=== PATIENT | male | born 2005 | race Caucasian/White ===

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

== ENCOUNTER 2025-04-02 22:00 | Observation (INO) | payer OTHER, MEDICAID, SELFPAY ==
--- NOTE | ~2025-04-02 | XR_ITS ---
CHEST RADIOGRAPH CLINICAL HISTORY: cough . COMPARISON: None available TECHNIQUE: Single portable view of the chest. FINDINGS The cardiomediastinal silhouette is unremarkable. The lungs are clear. Visualized osseous structures and soft tissues are unremarkable. IMPRESSION: No focal infiltrate or effusion. Reviewed, dictated and finalized at location A.
[2025-04-02 22:03] VITALS: BP 145/73; PULSE 123; RESP 18; TEMP 36.4; O2SAT 100
--- OUTSIDE RECORDS SUMMARY | 2025-04-02 22:03 | XMS_ITS | Encounter Summary ---
Author Organization [facility] [employer] Address [address] [place] [address] Care Team Providers Care Box Closing Machine Operator Name Role Phone Genia Epps MD Unavailable [phone] Karen Hook MD Primary Care Provider [phone] Genia Epps MD Primary Care Provider [phone] Unknown, Provider Primary Care Provider Unavaila Bartolo Ovalle DO Primary Care Provider Reason for Visit * Reason Onset Date Comments MEDICATION REFILL 03/27/2013 Encounter Details Date Type Department Care Team (Late st Contact Info) Description 03/27/2013 Refill [facility] - Endocrinology [address] [place] [id number] Gideon Bryant MD [address] [place] [id number] MEDICATION REFILL Social History Tobacco Use Types Packs/Day Years Used Date Smoking Tobacco: Never Alcohol Use Standard Drinks/Week Comments No 0 (1 standard drink = 0.6 oz pur e alcohol) Sex and Gender Information Value Date Recorded Sex Assigned at Not on file Legal Sex Male 8:23 AM KILN STOKER Gender Identity Not on file Sexual Orientation Not on file documented as of this encounter Plan of Treatment Not on file documented as of this encounter Visit Diagnoses Not on filedocumented in this encounter Additional Health Concerns Infection Onset Date Last Indicated Resolved Time COVID-19 Under Investigation 11/05/2020 11/05/2020 11/05/2020 3:52 PM KILN STOKER COVID-19 Under Investigation 11/14/2021 11/14/2021 11/25/2021 4:33 AM KILN STOKER documented as of this encounter Care Teams Box Closing Machine Operator Relationship Specialty Start Date End Date Genia Epps MD PCP - Pediatrics Pediatrics 11/22/11 10/02/23 Karen Hook MD PCP - General Pediatrics 09/21/12 01/26/14 Genia Epps MD PCP - General Pediatrics 04/12/20 10/02/23 Unknown, Provider PCP - General 11/07/23 12/05/23 Bartolo Aviles DO PCP - General 12/06/23 documented as of this encounter
--- OUTSIDE RECORDS SUMMARY | 2025-04-02 22:03 | XMS_ITS | Encounter Summary ---
Author Organization [facility] Address [address] [place] [address] Care Team Providers Care Health Unit Coordinator Name Role Phone Genia Epps MD Unavailable [phone] Karen Hook MD Primary Care Provider [phone] Genia Epps MD Primary Care Provider [phone] Unknown, Provider Primary Care Provider Bartolo Ortega DO Primary Care Provider Encounter Details Date Type Department Care Team (Late st Contact Info) Description 03/08/2013 [facility] Outpatient Visit CG DEFAULT [address] [place] [address] Unknown, Provider Social History Tobacco Use Types Packs/Day Years Used Date Smoking Tobacco: Never Alcohol Use Standard Drinks/Week Comments No 0 (1 standard drink = 0.6 oz pur e alcohol) Sex and Gender Information Value Date Recorded Sex Assigned at Not on file Legal Sex Male 8:23 AM TRADE SHOW COORDINATOR Gender Identity Not on file Sexual Orientation Not on file documented as of this encounter Plan of Treatment Not on file documented as of this encounter Visit Diagnoses Not on filedocumented in this encounter Additional Health Concerns Infection Onset Date Last Indicated Resolved Time COVID-19 Under Investigation 11/05/2020 11/05/2020 11/05/2020 3:52 PM TRADE SHOW COORDINATOR COVID-19 Under Investigation 11/14/2021 11/14/2021 11/25/2021 4:33 AM TRADE SHOW COORDINATOR documented as of this encounter Care Teams Health Unit Coordinator Relationship Specialty Start Date End Date Genia Epps MD PCP - Pediatrics Pediatrics 11/22/11 10/02/23 Karen Hook MD PCP - General Pediatrics 09/21/12 01/26/14 Genia Epps MD PCP - General Pediatrics 04/12/20 10/02/23 Unknown, Provider PCP - General 11/07/23 12/05/23 Bartolo Aviles DO PCP - General 12/06/23 documented as of this encounter
--- OUTSIDE RECORDS SUMMARY | 2025-04-02 22:03 | XMS_ITS | Encounter Summary ---
Author Organization [facility] [employer] Address [address] [place] [address] Care Team Providers Care Adon Name Role Phone Genia Epps MD Unavailable [phone] Genia Epps MD Primary Care Provider [phone] Unknown, Provider Primary Care Provider Unavaila Bartolo Ovalle DO Primary Care Provider Reason for Visit * Reason Onset Date Comments Refill Request 06/21/2018 Fosinopril Encounter Details Date Type Department Care Team (Late st Contact Info) Description 06/21/2018 Telephone [facility] Pediatrics - Endocrinology [facility] [place] [address] Jeannie Martinez Refill Request (Fosinopril) Social History Tobacco Use Types Packs/Day Years Used Date Smoking Tobacco: Passive Smo ke Exposure - Never Smoker Smokeless Tobacco: Never Alcohol Use Standard Drinks/Week Comments No 0 (1 standard drink = 0.6 oz pur e alcohol) Sex and Gender Information Value Date Recorded Sex Assigned at Not on file Legal Sex Male 8:23 AM TREAD CUTTER Gender Identity Not on file Sexual Orientation Not on file documented as of this encounter Plan of Treatment Not on file documented as of this encounter Goals Goal Patient Goal Type Associated Problems Recent Progress Patient-Stated? Author Use safety retraint in car Lifestyle On track( 022 11:33 AM TREAD CUTTER) No Elli Lainez RN documented as of this encounter Visit Diagnoses Not on filedocumented in this encounter Additional Health Concerns Infection Onset Date Last Indicated Resolved Time COVID-19 Under Investigation 11/05/2020 11/05/2020 11/05/2020 3:52 PM TREAD CUTTER COVID-19 Under Investigation 11/14/2021 11/14/2021 11/25/2021 4:33 AM TREAD CUTTER documented as of this encounter Care Teams Adon Relationship Specialty Start Date End Date Genia Epps MD PCP - Pediatrics Pediatrics 11/22/11 10/02/23 Genia Epps MD PCP - General Pediatrics 04/12/20 10/02/23 Unknown, Provider PCP - General 11/07/23 12/05/23 Bartolo Aviles DO PCP - General 12/06/23 documented as of this encounter
--- OUTSIDE RECORDS SUMMARY | 2025-04-02 22:03 | XMS_ITS | Encounter Summary ---
Author Organization [facility] Address [address] [place] [address] Care Team Providers Care Networking Engineer Name Role Phone Genia Epps MD Unavailable [phone] Genia Epps MD Primary Care Provider [phone] Unknown, Provider Primary Care Provider Unavaila Bartolo Ovalle DO Primary Care Provider Encounter Details Date Type Department Care Team (Late st Contact Info) Description 01/14/2018 Telephone [facility] Pediatrics - Endocrinology [address] [place] [address] Rafa Farias APRN-FEED RESEARCH TECHNICIAN [address] [place] [id number] Social History Tobacco Use Types Packs/Day Years Used Date Smoking Tobacco: Passive Smo ke Exposure - Never Smoker Smokeless Tobacco: Never Alcohol Use Standard Drinks/Week Comments No 0 (1 standard drink = 0.6 oz pur e alcohol) Sex and Gender Information Value Date Recorded Sex Assigned at Not on file Legal Sex Male 8:23 AM DIAMOND SETTER APPRENTICE Gender Identity Not on file Sexual Orientation Not on file documented as of this encounter Miscellaneous Notes * Telephone Encounter - Peewee Rossa RN - 01/14/2018 11:06 AM CDT Received Fax from [facility] for PA approval for Basaglar Kwikpen from 01/12/18- 10/14/18. Ticket # [phone]. * Telephone Encounter - Peewee Rosas RN - 01/14/2018 9:16 AM CDT PA request faxed to [facility] for Basaglar 100u/ml Kwikpen. documented in this encounter Plan of Treatment Not on file documented as of this encounter Goals Goal Patient Goal Type Associated Problems Recent Progress Patient-Stated? Author Use safety retraint in car Lifestyle On track( 022 11:33 AM DIAMOND SETTER APPRENTICE) No Elli Lainez RN documented as of this encounter Visit Diagnoses Not on filedocumented in this encounter Additional Health Concerns Infection Onset Date Last Indicated Resolved Time COVID-19 Under Investigation 11/05/2020 11/05/2020 11/05/2020 3:52 PM DIAMOND SETTER APPRENTICE COVID-19 Under Investigation 11/14/2021 11/14/2021 11/25/2021 4:33 AM DIAMOND SETTER APPRENTICE documented as of this encounter Care Teams Networking Engineer Relationship Specialty Start Date End Date Genia Epps MD PCP - Pediatrics Pediatrics 11/22/11 10/02/23 Genia Epps MD PCP - General Pediatrics 04/12/20 10/02/23 Unknown, Provider PCP - General 11/07/23 12/05/23 Bartolo Aviles DO PCP - General 12/06/23 documented as of this encounter
--- OUTSIDE RECORDS SUMMARY | 2025-04-02 22:03 | XMS_ITS | Clinical Summary ---
Author Organization [facility] Address [address] [place] [address] Care Team Providers Care Forensic Document Examiner Name Role Phone Bartolo Aviles DO Primary Care Provider Source Comments [facility],non-owned Affiliates and Associated Physician Practices is amultiple site organization consisting of ambulatory clinics and hospital sitesin [place], [place], [place]. This disclosure is being madepursuant to the Care Everywhere program and may not contain all information available regarding this patient. Last updated 18.[facility] Allergies No known active allergies Medications * Be aware that medications may not be up to date on this document. Alwaysverify current medications with the patient. Blood Glucose Monitoring Suppl (Digital Media BroadcastTOUCH VERIO) W/DEVICE KIT Use 1 Each as directed Use to test blood sugar as directed 2 kit 1 11/28/19 18 Active blood glucose (ONETOUCH ULTRA TEST STRIPS) test stripIndications: Type 1 diabetes mellitus without complication (HCC) Use for blood glucose monitoring 5-9 times/day. 200 strip 11 02/08/20 19 Active blood glucose (ONETOUCH VERIO) test stripIndications: Uncontrolled type 1 diabetes mellitus with hyperglycemia (HCC) Use to test blood sugar 5-9 times daily. 200 strip 12/28/19 22 Active Continuous Blood Gluc Water Gas Operator (DEXCOM G6 SDE) DEVIIndications:T ype 1 diabetes mellitus with hyperglycemia (HCC) Use 1 Each as directed 1 Each 12/30/19 22 Active Insulin Pen Needle (TRUEplus Pen [place]) 32G X 4 MM MISCIndications:T ype 1 diabetes mellitus without complication, with long-term current use of insulin ([facility]) Use 1 Each as directed Use to administer insulin 4-6 times per day 200 Each 05/09/20 23 Active Continuous Blood Gluc Sensor (Dexcom G6 Sensor) MISCIndications:T ype 1 diabetes mellitus without complication, with long-term current use of insulin ([facility]) Use 1 Each every 10 days 3 Each 06/26/20 23 Active Continuous Blood Gluc Transmit (Dexcom G6 Transmitter) MISCIndications:T ype 1 diabetes mellitus without complication, with long-term current use of insulin ([facility]) Use 1 Each Every 90 days 1 Each 3 06/26/20 23 Active fosinopril (Monopril) 10 MG tabletIndications :Hypercholesterem ia Take 1 (one) tablet by mouth once daily 30 tablet 08/13/20 23 Active Insulin Pen Needle (BD Pen Needle Gosia U/F) 32G X 4 MM MISCIndications:T ype 1 diabetes mellitus without complication (HCC) Use 1 Each as directed Use for injections 4-6 times daily. 200 Each 10/29/19 24 Active Continuous Glucose Sensor (Dexcom G7 Sensor) MISCIndications:T ype 1 diabetes mellitus without complication (HCC) Use 1 Each every 10 days 3 Each 03/11/20 24 Active acetone,urine, (Ketostix) stripIndications: Type 1 diabetes mellitus without complication, with long-term current use of insulin ([facility]) Test urine when blood sugar is 250 or higher or when Haider is sick. 100 strip 11 03/11/20 24 Active Glucagon (Baqsimi Two Pack) 3 MG/DOSE POWDIndications:T ype 1 diabetes mellitus with hyperglycemia (HCC) Curlew 1 Each into the nose as directed 1 Each 4 05/28/20 24 Active insulin glargine (Lantus SoloStar) penIndications:Un controlled type 1 diabetes mellitus with hyperglycemia (HCC) INJECT 30 UNITS UNDER THE SKIN DAILY, ALLOW 2 UNIT PRIME. 15 mL 03/11/20 Active insulin lispro (HumaLOG;ADMelog) 100 UNIT/ML penIndications:Un controlled type 1 diabetes mellitus with hyperglycemia (HCC) Inject 1 unit for every 4 grams carbohydrate at meals and snacks as directed. Max daily 90 units/day 30 mL 03/11/20 24 Active Active Problems Problem Noted Date Diagnosed Date Heart murmur 04/14/2021 Essential hypertension 04/08/2018 Overview (08/31/2020): Treated with lisinopril Diabetes mellitus type I 04/20/2012 Overview (03/23/2023): Dx (04/20/2012): Diabetes mellitus, type 1; hemoglobin A1c 10.1 %; serum anti-MARCOS U/mL 73.1 (< 5.0), anti-insulin [IA-2 ab] 6.1 U/mL (0.0-0.8), anti-islet cell IgG antibodies < 1:4 (< 1:4). date result TSH 09/15/21 0.799 TTG IgA 07/10/19 <2 LDL 09/15/21 74 Ur microalbumin/cr 12/22/22 <10 Eye exam 12/23/22 negative Foot exam 03/23/23 normal DKA: 04/02/21 Assessment & Plan (03/07/2021 10:05 AM CDT): 1) [email or web address] 2) in the meantime you need to take correction doses every 2 hours until blood sugar is in range 3) plan on pump start over the summer 4) return in 3-4 months Assessment & Plan (12/03/2020 2:10 PM REFRACTORY TILE HELPER): 1) take correction dose every 2 hours when glucose is not in range 2) re-evaluate carb counting 3) call in one week to review sensor 4) return in 3 months for Anita Assessment & Plan (08/31/2020 4:12 PM REFRACTORY TILE HELPER): 1) continue current insulin doses 2) I will order dexcom 3) call us once you have set it up 4) return in 3 months for Anita Assessment & Plan (04/28/2020 8:34 AM CDT): 1) check blood sugar at 3pm and take correction if needed (This was Haider's suggestion) 2) call as needed to review blood sugars 3) resume BORA-I, 5mg daily and check electrolytes in 2 weeks Assessment & Plan (02/13/2020 8:44 AM CDT): 1) increase basaglar to 31 units 2) check blood sugar every 3-4 hours throughout the day 3) call in blood sugars in one week 4) return in 3 months for anita Assessment & Plan (10/17/2019 8:05 AM REFRACTORY TILE HELPER): 1) change correction dose to 2 per 50 over 150 151-200 add 2 201-250 add 4 251-300 add 6 301-350 add 8 351-400 add 10 Over 401 add 12 admelog 2) check blood sugar 4 times daily 3) call in blood sugars in one week 4) return in [address] Dumont Assessment & Plan (07/11/2019 9:16 AM CDT): 1) increase basaglar to 30 units 2) always check blood sugar before bed to make sure it is over 100 3) call in blood sugars in one week 4) return in 3 months for anita Assessment & Plan (04/10/2019 8:37 AM CDT): 1) check blood sugar when you wake up, if over 150 take correction dose and recheck in 2 hours 2) take correction doses every 2 hours until blood sugar is under 150 3) memorize doses 4) never take admelog after eating. For meals, count carbs, check blood sugar, take dose, eat 5) never miss lantus 6) return in 3 months for anita Assessment & Plan (09/20/2018 8:57 AM REFRACTORY TILE HELPER): 1) must check blood sugar at least 4 times daily 2) take correction doses when blood sugar is high and recheck blood sugar in 2 hours 3) call as needed to review blood sugars 4) return in [address] Dumont Assessment & Plan (02/26/2018 2:10 PM CDT): 1) improve blood sugar testing 2) 4 times daily 3) start fosinopril 5mg daily 4) check electrolytes in 2 weeks at [facility] 5) spot check blood pressure 2-3 times weekly 6) call in blood sugars in one week 7) return in [address] Dumont Assessment & Plan (08/15/2017 8:43 AM CDT): 1) grandparents and school nurse to give all injections 2) direct supervision required for blood sugar checks 3) must make sure blood sugar is tested before leaving for school, lunch time, dinner time and bedtime 4) call in blood sugars on Sunday 5) Return in 3 months for Anita Assessment & Plan (02/06/2017 11:02 AM CDT): Lantus/basaglar 22 units at 8 p.m. Novolog/humalo unit per 4 g carb at meals/snacks [give insulin injections prior to meals/snacks] Mealtime correction: 1 unit Novolog/Humalog for every 30 mg/dL over 150 mg/dL. [facility] Del [facility]'s home target blood glucose range: 70-150 mg/dL Target blood glucose levels for children with type I diabetes mellitus Under age 4 yr: 100-200 mg/dL Age 4-7 yr: 80-180 mg/dL Over age 7 yr: 80-150 mg/dL Insulin injections given by: self Insulin injection sites: arm(s), lower leg(s) Avoid giving insulin injections in the abdominal wall - lipohypertrophied areas Consistent carbohydrate counting meal planning (gluten free no) Avoid/minimize between meal snacking without taking insulin. Per the [employer] practice guidelines [Diabetes Care 2015 38 (suppl 1): S1-S94], people with type 1 diabetes mellitus on multiple-dose insulin or insulin pump therapy should perform SMBG prior to meals and snacks, occasionally post-prandial, at bedtime, prior to exercise, when they suspect low blood glucose, after treating low blood glucose until they are normoglycemic, and prior to critical tasks such as driving. Record home blood glucose records in a logbook and bring this logbook to each office visit. Obtain and wear medic alert identification at all times. Schedule appointment for annual eye exam: no; Last eye exam: October 2016 Influenza immunization: not done (at this office visit) Follow-up by telephone (office number: [phone], option #4 or fax number: [phone]) in 2 weeks to review Haider's interval home blood glucose records and make any additional insulin dose adjustments. Return appointment in 3 months Assessment & Plan (12/04/2016 8:48 AM REFRACTORY TILE HELPER): Lantus 20 units at 9 p.m. Novolog/humalo unit per 4 g carb at meals/snacks [give insulin injections after meals/snacks] Mealtime correction: 1 unit Novolog/Humalog for every 30 mg/dL over 150 mg/dL. [facility] Del [facility] home target blood glucose range: 70-150 mg/dL Target blood glucose levels for children with type I diabetes mellitus Under age 4 yr: 100-200 mg/dL Age 4-7 yr: 80-180 mg/dL Over age 7 yr: 80-150 mg/dL Insulin injections given by: grandparent and school nurse Insulin injection sites: abdominal wall, arm(s) Avoid giving insulin injections in the n/a - lipohypertrophied areas Consistent carbohydrate counting meal planning (gluten free no) Avoid/minimize between meal snacking without taking insulin. Per the [employer] practice guidelines [Diabetes Care 2015 38 (suppl 1): S1-S94], people with type 1 diabetes mellitus on multiple-dose insulin or insulin pump therapy should perform SMBG prior to meals and snacks, occasionally post-prandial, at bedtime, prior to exercise, when they suspect low blood glucose, after treating low blood glucose until they are normoglycemic, and prior to critical tasks such as driving. Record home blood glucose records in a logbook and bring this logbook to each office visit. Obtain and wear medic alert identification at all times. Influenza immunization: already done (at this office visit) Follow-up by telephone (office number: [phone], option #4 or fax number: [phone]) in 2 weeks to review Haider's interval home blood glucose records and make any additional insulin dose adjustments. Return appointment in 2 months Assessment & Plan (08/18/2016 11:29 AM CDT): Lantus 18 units at 9 p.m. Novolog/humalo unit per 5 g carb at meals/snacks;[give insulin injections prior to meals/snacks] Mealtime correction: 1 unit Novolog/Humalog for every 50 mg/dL over 150 mg/dL. [facility] home target blood glucose range: 70-150 mg/dL Target blood glucose levels for children with type I diabetes mellitus Under age 4 yr: 100-200 mg/dL Age 4-7 yr: 80-180 mg/dL Over age 7 yr: 80-150 mg/dL Insulin injections given by: self (all injections supervised) Insulin injection sites: abdominal wall, arm(s) Avoid giving insulin injections in the n/a - lipohypertrophied areas Consistent carbohydrate counting meal planning (gluten free no) Avoid/minimize between meal snacking without taking insulin. Per the [employer] practice guidelines [Diabetes Care 2015 38 (suppl 1): S1-S94], people with type 1 diabetes mellitus on multiple-dose insulin or insulin pump therapy should perform SMBG prior to meals and snacks, occasionally post-prandial, at bedtime, prior to exercise, when they suspect low blood glucose, after treating low blood glucose until they are normoglycemic, and prior to critical tasks such as driving. Record home blood glucose records in a logbook and bring this logbook to each office visit. Obtain and wear medic alert identification at all times. Schedule appointment for annual eye exam: yes; Last eye exam: October 2015 Influenza immunization: done (at this office visit) Follow-up by telephone (office number: [phone], option #4 or fax number: [phone]) in 2 weeks to review Haider's interval home blood glucose records and make any additional insulin dose adjustments. Return appointment in 3 months Assessment & Plan (06/04/2016 12:59 PM CDT): Lantus 17 units at 9 p.m. Novolog/humalo unit per 6 g carb at meals/snack [give insulin injections prior to meals/snacks] Mealtime correction: 1 unit Novolog/Humalog for every 50 mg/dL over 150 mg/dL. [facility]esma [facility]rad[facility]'s home target blood glucose range: 70-150 mg/dL Target blood glucose levels for children with type I diabetes mellitus Under age 4 yr: 100-200 mg/dL Age 4-7 yr: 80-180 mg/dL Over age 7 yr: 80-150 mg/dL Insulin injections given by: self Insulin injection sites: abdominal wall, arm(s), thigh(s) Avoid giving insulin injections in the arm(s) - lipohypertrophied areas Consistent carbohydrate counting meal planning (gluten free no) Avoid/minimize between meal snacking without taking insulin. Per the [employer] practice guidelines [Diabetes Care 2015 38 (suppl 1): S1-S94], people with type 1 diabetes mellitus on multiple-dose insulin or insulin pump therapy should perform SMBG prior to meals and snacks, occasionally post-prandial, at bedtime, prior to exercise, when they suspect low blood glucose, after treating low blood glucose until they are normoglycemic, and prior to critical tasks such as driving. Record home blood glucose records in a logbook and bring this logbook to each office visit. Obtain and wear medic alert identification at all times. Schedule appointment for annual eye exam: yes; Last eye exam: March 2015 Influenza immunization: not done (at this office visit) Follow-up by telephone (office number: [phone], option #4 or fax number: [phone]) in 2 weeks to review Haider's interval home blood glucose records and make any additional insulin dose adjustments. Return appointment in 2 months Assessment & Plan (02/18/2016 4:10 PM CDT): Lantus 16 units at 9 p.m. Novolog/humalo unit per 6 g carb at breakfast; 1 u per 6 g carb at lunch;1 u per 5 g carb at supper and1 u per 6 g carb with snacks [give insulin injections prior to meals/snacks] Mealtime correction: 1 unit Novolog/Humalog for every 50 mg/dL over 150 Mg/dL (do not use with bedtime snack). Blood glucose target range: 70-150 mg/dL Insulin injections given by: self and grandparent Insulin injection sites: abdominal wall, arm(s), thigh(s) Avoid giving insulin injections in the arm(s) - lipohypertrophied areas Consistent carbohydrate counting meal planning (gluten free no) Avoid/minimize between meal snacking without taking insulin. Per the [employer] practice guidelines [Diabetes Care 2015 38 (suppl 1): S1-S94], people with type 1 diabetes mellitus on multiple-dose insulin or insulin pump therapy should perform SMBG prior to meals and snacks, occasionally post-prandial, at bedtime, prior to exercise, when they suspect low blood glucose, after treating low blood glucose until they are normoglycemic, and prior to critical tasks such as driving. Record home blood glucose records in a logbook and bring this logbook to each office visit. Obtain and wear medic alert identification at all times. Schedule appointment for annual eye exam: yes; Last eye exam: April 2015 Influenza immunization: not done (at this office visit) Follow-up by telephone (office number: [phone], option #4 or fax number: [phone]) in 2 weeks to review Haider's interval home blood glucose records and make any additional insulin dose adjustments. Return appointment in 3 months Assessment & Plan (11/23/2015 2:16 PM REFRACTORY TILE HELPER): Lantus 17 units at 9 p.m. Novolog/humalo unit per 6 g carb at meals/snacks [give insulin injections prior to meals/snacks] Mealtime correction: 1 unit Novolog/Humalog for every 50 mg/dL over 150 mg/dL. Blood glucose target range: 70-150 mg/dL Insulin injections given by: grandparent and school nurse Insulin injection sites: abdominal wall, arm(s) Avoid giving insulin injections in the arm(s) - lipohypertrophied areas Consistent carbohydrate counting meal planning (gluten free no) Avoid/minimize between meal snacking without taking insulin. Per the [employer] practice guidelines [Diabetes Care 2015 38 (suppl 1): S1-S94], people with type 1 diabetes mellitus on multiple-dose insulin or insulin pump therapy should perform SMBG prior to meals and snacks, occasionally post-prandial, at bedtime, prior to exercise, when they suspect low blood glucose, after treating low blood glucose until they are normoglycemic, and prior to critical tasks such as driving. Record home blood glucose records in a logbook and bring this logbook to each office visit. Obtain and wear medic alert identification at all times. Schedule appointment for annual eye exam: no; Last eye exam: May 2015 Influenza immunization: not done (at this office visit) Follow-up by telephone (office number: [phone], option #4 or fax number: [phone]) in 2 weeks to review Ha[facility]'s interval home blood glucose records and make any additional insulin dose adjustments. Return appointment in 3 months Assessment & Plan (08/27/2015 12:49 PM REFRACTORY TILE HELPER): 1) decrease dinner to 1:7 2) call in blood sugars in one week 3) return in [address] Bryant Assessment & Plan (05/21/2015 1:50 PM CDT): 1) Increase Humalog to 1 unit per 5 grams carb 2) increase lantus to 16 units 3) Adults are to administer all injections 4) Humalog is to be given before meals 5) call in blood sugars in one week to [phone] option 4 6) return in [address] Bryant Assessment & Plan (02/12/2015 8:31 AM CDT): 1) increase lantus to 14 units 2) increase correction dose to 1 per 50 over 150 151-200 1 unit 201-250 2 251-300 3 301-350 4 351-400 5 Over 401 6 3) Must begin meal injections before the meal 4) call in blood sugars in 1 week to [phone] option 4 5) return in 3 months for anita or Dr. Bryant 6) decrease lunch to 1:10 Assessment & Plan (11/10/2014 2:12 PM REFRACTORY TILE HELPER): Lantus 11 units at 10 p.m. Novolog/humalo unit per 8 g carb at meals/snacks; [try to give insulin injections prior to meals/snacks] Mealtime correction: 0.5 unit Novolog/Humalog for every 50 mg/dL over 150 mg/dL. Blood glucose target range: 70-150 mg/dL Insulin injections given by: self and grandparent Insulin injection sites: abdominal wall, arm(s) Avoid giving insulin injections in the abdominal wall - lipohypertrophied areas Consistent carbohydrate counting meal planning (gluten free no) Avoid/minimize between meal snacking without taking insulin. Self blood glucose monitoring before meals, HS, and prn (record in logbook). Obtain and wear medic alert identification at all times. Schedule appointment for annual eye exam: no; Last eye exam: April 2014 Influenza immunization: already done (at this office visit) Follow-up by telephone (office number: [phone], option #4 or fax number: [phone]) in 2 weeks to review [facility]'s interval home blood glucose records and make any additional insulin dose adjustments. Return appointment in 3 months Assessment & Plan (08/11/2014 9:50 AM CDT): Lantus 10 units at 9 p.m. Novolog/humalo unit per 8 g carb at meals/snacks; [give insulin injections after meals/snacks] Mealtime correction: 0.5 unit Novolog/Humalog for every 50 mg/dL over 150 mg/dL. Blood glucose target range: 70-150 mg/dL Insulin injections given by: self Insulin injection sites: abdominal wall Avoid giving insulin injections in the abdominal wall - lipohypertrophied areas Consistent carbohydrate counting meal planning (gluten free no) Avoid/minimize between meal snacking without taking insulin. Self blood glucose monitoring before meals, HS, and prn (record in logbook). Obtain and wear medic alert identification at all times. Schedule appointment for annual eye exam: no; Last eye exam: February 2014 Influenza immunization: done (at this office visit) Follow-up by telephone (office number: [phone], option #4 or fax number: [phone]) in 1 weeks to review Haider's interval home blood glucose records and make any additional insulin dose adjustments. Return appointment in 3 months Assessment & Plan (05/11/2014 4:27 PM CDT): Lantus 10 units at 9 p.m. Novolog/humalo unit per 8 g carb at meals/snacks [give insulin injections after meals/snacks] Mealtime correction: 0.5 unit Novolog/Humalog for every 50 mg/dL over 150 mg/dL. Blood glucose target range: 70-150 mg/dL Insulin injections given by: grandparent and school nurse Insulin injection sites: abdominal wall, arm(s) Avoid giving insulin injections in the arm(s) - lipohypertrophied areas Consistent carbohydrate counting meal planning (gluten free no) Self blood glucose monitoring before meals, HS, and prn (record in logbook). Obtain and wear medic alert identification at all times. Schedule appointment for annual eye exam: no; Last eye exam: February 2014 Influenza immunization: not done (at this office visit) Follow-up by telephone (office number: [phone], option #4 or fax number: [phone]) in 2 weeks to review [facility]'s interval home blood glucose records and make any additional insulin dose adjustments. Return appointment in 3 months Assessment & Plan (01/28/2014 11:19 AM CDT): 1. Lantus 9 units at bedtime 2. Rotate insulin injection sites to include legs and arms 3. Novolog/humalo unit per 8 g carb at meals/snacks; except 1 unit per 10 g carb at supper [give insulin injections after to meals/snacks] 4. Mealtime correction: 0.5 unit Novolog/Humalog for every 50 mg/dL over 200 mg/dL (max: 4 units) 5. Consistent carbohydrate counting meal planning 6. Self blood glucose monitoring before meals, HS, and prn (record in logbook). 7. Wear medic alert identification at all times. 8. Follow-up by telephone (office number: [phone], option #4 or fax number: [phone]) in 1-2 weeks to review [facility]ider's interval home blood glucose records and make any additional insulin dose adjustments. 9. Return appointment in 3 months Assessment & Plan (10/28/2013 12:06 PM REFRACTORY TILE HELPER): Lantus 8.5 units at bedtime Rotate insulin injection sites to include legs and arms Novolog/humalo unit per 8 g carb at meals/snacks [give insulin injections after to meals/snacks] Mealtime correction: 0.5 unit Novolog/Humalog for every 50 mg/dL over 200 mg/dL (max: 4 units) For blood glucose level 200-250 mg/dL, give 0.5 extra unit of Humalog insulin For blood glucose level 251-300 mg/dL, give 1.0 extra units of Humalog insulin For blood glucose level 301-350 mg/dL, give 1.5 extra units of Humalog insulin For blood glucose level 351-400 mg/dL, give 2 extra units of Humalog insulin For blood glucose level over 400 mg/dL, give 2.5 units extra of Humalog insulin Consistent carbohydrate counting meal planning Self blood glucose monitoring before meals, HS, and prn (record in logbook). Wear medic alert identification at all times. Follow-up by telephone (office number: [phone], option #4 or fax number: [phone]) in 1-2 weeks to review [facility]ider's interval home blood glucose records and make any additional insulin dose adjustments. Return appointment in 3 months Assessment & Plan (07/14/2013 11:21 PM CDT): Lantus 8 units at bedtime Rotate insulin injection sites to include legs and arms Novolog/humalo unit per 5 g carb at meals/snacks [give insulin injections after to meals/snacks]; except lunchtime, give 1 unit per 10 g carb Mealtime correction: 0.5 unit Novolog/Humalog for every 50 mg/dL over 200 mg/dL (max: 4 units) For blood glucose level 200-250 mg/dL, give 0.5 extra unit of Humalog insulin For blood glucose level 251-300 mg/dL, give 1.0 extra units of Humalog insulin For blood glucose level 301-350 mg/dL, give 1.5 extra units of Humalog insulin For blood glucose level 351-400 mg/dL, give 2 extra units of Humalog insulin For blood glucose level over 400 mg/dL, give 2.5 units extra of Humalog insulin Consistent carbohydrate counting meal planning Self blood glucose monitoring before meals, HS, and prn (record in logbook). Wear medic alert identification at all times. Follow-up by telephone (office number: [phone], option #4 or fax number: [phone]) in 1-2 weeks to review Haider's interval home blood glucose records and make any additional insulin dose adjustments. Return appointment in 3 months ADHD (attention deficit hyperactivity disorder) 02/27/2012 Resolved Problems Problem Noted Date Diagnosed Date Resolved Date Diabetic ketoacidosis withou t coma associated with type 1 diabetes mellitus 04/02/2021 03/23/2023 Assessment & Plan (04/02/2021 4:57 AM CDT): Assessment: Haider is a 15 year old male with a known history of T1DM who presents with vomiting, abdominal pain, headache, and diarrhea x1 day. Labs and history consistent with DKA. pH of 7.16 with a bicarb of 11. Haider requires admission for observation and treatment of his DKA. Plan: - Admit to Endocrine, Dr. Gonzalez FEN/GI/ENDO: - NPO - IV per protocol - D10 1/2 NS + 20 Kacetate and 20 KPhos at 200 ml/hr - 1/2 NS + 20 Kacetate and 20 KPhos at 1 ml/hr - Insulin gtt at 0.1 U/kg/hr - Glucose check q1h - BMP q4 - Urine ketones qvoid - I/Os - Diabetes education while admitted - Nutrition consult - HbA1c 11.4 on 03/03/21 - While at home regiment: - Basaglar 32 units qhs. - Humalog 1:4 carb ratio - Patient reported: Humalog sliding scale of 2u for every 50 over 150 - Per last note: Humalog sliding scale of 2u for every 80 over 180 ID: - Afebrile and no URI symptoms or sick contacts - CBC remarkable for WBC 34.4 Cardio/Resp: - Takes Fosinopril 10 mg qd at home - will take Lisinopril 10 mg qd while in the hospital - Vitals q2 - CR monitors - Continuous pulse ox Neuro/Pain: - Neuro checks q2 - PRN Tylenol Access: PIV Assessment & Plan (04/02/2021 3:50 AM CDT): Assessment: Haider is a 15 year old male with a known history of T1DM who presents with . Labs and history consistent with DKA. Plan: - Admit to Endocrine, Dr. Gonzalez FEN/GI/ENDO: - NPO - IV per protocol - D10 1/2 NS + 20 Kacetate and 20 KPhos at 200 ml/hr - 1/2 NS + 20 Kacetate and 20 KPhos at 1 ml/hr - Insulin gtt at 0.1 U/kg/hr - Glucose check q1h - BMP q4 - Urine ketones qvoid - I/Os - Diabetes education while admitted - Nutrition consult - HbA1c 11.4 on 03/03/21 ID: - Afebrile - CBC remarkable for WBC 34.4 Cardio/Resp: - Vitals q2 - CR monitors - Continuous pulse ox Neuro/Pain: - Neuro checks q2 Access: PIV Elevated blood pressure read ing without diagnosis of hypertension 11/29/2015 03/23/2016 Overview (01/13/2017): IMO Update 01/13/2017 DKA (diabetic ketoacidoses) 04/21/2012 04/22/2012 Overview (07/15/2021): 6 yr old with new onset diabetes (likely type 1) presenting w/ 3 week h/o polydipsia, polyuria and polyphagia. Admission labs significant for pH of 7.19, Hco3- 12, AG 20, K+ 5.0, urine ketones of 3+, HbA1c 10.1. Tolerated DKA protocol well, able to come off fluids/insulin and take PO by next AM, switched to floor status for duration of stay. A/P: - F/u results of Marcos, IA-2, and islet antibodies - Continue diabetes education with family today and tomorrow - Continue lantus 8 units and humalog 1 unit for 15 grams carbs plus correction dose of 1 unit for every 50 >150 IMO 2020 Poor weight gain in child 04/21/2012 Overview (04/23/2012): Probably secondary to medication effect (Adderall XR). Assessment & Plan (01/27/2014 10:13 AM CDT): Improving. 1. Expectant observation Immunizations Immunization Administration Dates Next Due DTaP VACCINE IM (6wk-6yrs) 07/07/2009,,2004,11/15,2004 HEP A PEDS 2 DOSE 04/11/2012,07/07/2009 HEP B VACCINE, PED/ADOL 09/17/2006,2004, HIB BOOSTER 09/17/2006, 5,2004,07/07 Human Papilloma Virus Matheus valent Vaccine 09/24/2015,05/24/2015,03/22/2015 INFLUENZA VACCINE 07/14/2013, 2,08/27/2009,07/07,09/17/2006 INFLUENZA VACCINE, QUADR. (F LUZONE; FLULAVAL; FLUARIX; AFLURIA QUADRIVALENT; 6MO+), 0.5 ML (IIV4) 07/28/2021,08/31/2020,07/10/2019,08/26,08/13/2017,08/17/2016,08/26/2015 MENINGOCOCCAL ACWY (MCV4P) VAC IM 05/12/2020,07/2015 MMR 08/27/2009,07/07/2009 PNEUMOCOCCAL CONJ, PEDS 09/17/2006,12/30,2004,07/07 POLIO IPV 07/07/2009, 6,2004,07/07 TDAP (7yrs+) 03/22/2015 VARICELLA 04/11/2012,07/07/2009 Family History Medical History Relation Name Comments Migraine Mother Diabetes Other 1st cousin Diabetes Paternal Grandfather Hypertension Paternal Grandmother Thyroid Disease Paternal Grandmother Relation Name Status Comments Brother Alive Father Maternal Grandfather Alive Maternal Grandmother Alive Mother Alive Other Paternal Grandfather Alive Paternal Grandmother Alive Sister Alive Social History Tobacco Use Types Packs/Day Years Used Date Smoking Tobacco: Every Day Cigarettes Passive Smoke Exposure: Yes Smokeless Tobacco: Current Tobacco Cessation:Ready to Q uit: Not Asked; Counseling Given: Not Answered Comments:Vaping Alcohol Use Standard Drinks/Week Comments No 0 (1 standard drink = 0.6 oz pur e alcohol) PHQ-2 Answer Date Recorded Patient Health Questionnaire-2 Score 0 10/10/2022 Sex and Gender Information Value Date Recorded Sex Assigned at Not on file Legal Sex Male 8:23 AM REFRACTORY TILE HELPER Gender Identity Not on file Sexual Orientation Not on file Last Filed Vital Signs Vital Sign Reading Time Taken Comments Blood Pressure 130/78 03/11/2024 9:54 AM CDT Pulse 74 04/14/2021 10:31 AM CDT Temperature 37.1 C (98.8 F) 10/01/2023 3:53 PM REFRACTORY TILE HELPER Respiratory Rate 22 04/02/2021 8:13 PM CDT Oxygen Saturation 98% 04/02/2021 8:13 PM CDT Inhaled Oxygen Concentration - - Weight 66 kg (145 lb 8.1 oz) 03/11/2024 9:54 AM CDT Height 177.5 cm (5' 9.88) 03/11/2024 9:54 AM CD T Body Mass Index 20.95 03/11/2024 9:54 AM CDT Plan of Treatment Health Maintenance Due Date Last Done Comments PNEUMOCOCCAL VACCINE (1 of 1 - PPSV23, PCV20, or PCV21) 2010 09/17/2006, 2004, 2004, Additional history exists HIV SCREENING 2019 MENINGOCOCCAL (Group B) VACC INE SHARED DECISION-MAKING (1 of 2 - Standard) 2020 HEPATITIS C SCREENING 05/01/2022 DIABETES-FOOT EXAM WITH MONOFILAMENT 03/23/2024 03/23/2023 DIABETES-HGB A1C 06/11/2024 03/11/2024, , 06/26/2023, Additional history exists COVID-19 VACCINE (2023-2 5 season) 2024 10/19/2021, 01/12/2021, 12/22/2020 DEPRESSION SCREENING 10/15/2024 11/13/2023, 03/23/2023, 12/15/2021 DIABETES - URINE PROTEIN SCREENING 10/15/2024 12/22/2022, 09/15/2021, 08/31/2020, Additional history exists DIABETES-SERUM CREATININE 11/13/20242023, 04/02/2021, 04/02/2021, Additional history exists DIABETES RETINOPATHY SCREENING 12/23/2024 0 12/23/2022 (Done Outside Per Report) DTAP/TDAP/TD VACCINES (7 - T d or Tdap) 03/22/2025 03/22/2015, 07/07/2009, 09/17/2006, Additional history exists INFLUENZA VACCINE (Season Ended) 2025 07/29/2022, 07/28/2021, 08/31/2020, Additional history exists ZOSTER VACCINE (1 of 2) 2054 HEPATITIS B VACCINE Completed 09/17/2006, 2004, 2004 HIB VACCINE Completed 09/17/2006, 12/13, 2004, Additional history exists HPV VACCINE Completed 09/24/2015, 05/15, 03/22/2015 MENINGOCOCCAL GROUPS A/C/Y/W VACCINE Completed 05/12/2020, 05/24/2015 Goals Goal Patient Goal Type Associated Problems Recent Progress Patient-Stated? 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 Essential hypertension MICROALB/CREAT RATIO URINE RANDOM PANEL Routine 12/22/2022 11:36 AM REFRACTORY TILE HELPER Type 1 diabetes mellitus with hyperglycemia from Last 3 Months or Most Recently Relevant to Health Maintenance Results * (ABNORMAL) HEMOGLOBIN A1C - POCT INTERFACED (03/11/2024 9:56 AM CDT) Hemoglobin A1C POCT 9.7(H) <5.7 % 03/11/2024 10:04 AM T [facility] Estimated Average Glucose 232 mg/dL 03/11/2024 10:04 AM T [facility] Blood BLOOD SPECIMEN / Unknown 03/11/2024 9:56 AM CDT 03/11/2024 10:04 AM CDT Narrative [facility] - 03/11/2024 10:04 AM CDT HbA1c Interpretation: Normal: < 5.7% Pre-diabetes: 5.7-6.4% Diabetes: Equal to or greater than 6.5% This test should only be used to monitor, not diagnose diabetes. Test results diagnostic of diabetes should be repeated by another method with a different assay principle for confirmation. Treatment target values recommended by ADA and other clinical organizations should be used to evaluate metabolic control in patients. Patients with a hemoglobin of <7 or >24 should not be tested using this method. Patients known to have these conditions should be assayed by a test employing a different assay principle. Glycated hemoglobin F is not measured by the DCA HbA1c assay. At very high levels of hemoglobin F (> 10%), HbA1c is lower than expected. Patients with HbS or HbE should not be tested using this device. HbS or HbE cause a higher result than expected. Conditions such as hemolytic anemia, polycythemia, homozygous and HbC, can result in decreased life span of the red blood cells, which causes HbA1c results to be lower than expected. The Siemens DCA assay for the measurement of HbA1c is a National Glycohemoglobin Standardization Program (NGSP) certified method. Ambar Wong BOATING SAFETY OFFICER-AUTOMOBILE SALESMAN LAB - POINT OF CARE ORD ERABLES Final Result [facility] [address] [place] [phone] * (ABNORMAL) BASIC METABOLIC PANEL (CALCIUM TOTAL) (11/13/2023 11:39 AM REFRACTORY TILE HELPER) BUN 14 7 - 26 mg/dL 11/13/2023 1:00 PM [facility] Creatinine 0.72 0.71 - 1.16 mg/dL 11/13/2023 1:00 PM [facility] Sodium 141 136 - 145 mmol/L 11/13/2023 1:00 PM [facility] Potassium 4.0 3.5 - 4.5 mmol/L 11/13/2023 1:00 PM [facility] Chloride 104 98 - 107 mmol/L 11/13/2023 1:00 PM [facility] CO2 28 22 - 29 mmol/L 11/13/2023 1:00 PM [facility] Glucose 43(LL) 70 - 115 mg/dL 11/13/2023 1:00 PM [facility] Calcium 9.7 8.4 - 10.2 mg/dL 11/13/2023 1:00 PM [facility] Anion Gap 9 6 - 16 11/13/2023 1:00 PM [facility] BUN/Creatinine Ratio 19 7 - 23 11/13/2023 1:00 PM [facility] Osmolality Calculated 289 275 - 295 mOsm/kg 11/13/2023 1:00 PM [facility] eGFR by CKD-EPI >90 >=90 mL/min/1.7 3 m2 11/13/2023 1:00 PM [facility] Blood BLOOD SPECIMEN / Unknown Lab Venipuncture / Unknown 11/13/2023 11:39 AM [facility] 11/13/2023 11:49 AM [facility] us Liat Dumont DO LAB - CHEMISTRY ORDERABLES Final Result [address] [address], [facility] [phone] * MICROALB/CREAT RATIO URINE RANDOM PANEL (12/22/2022 11:36 AM [facility]) Albumin Random Urine <5.0 Not Established ug/mL 12/22/2022 12:31 PM [facility] Creatinine Urine 28 Not Established mg/dL 12/22/2022 12:31 PM [facility] Urine Albumin/Creati nine Ratio <18 <30 mg/g 12/22/2022 12:31 PM [facility] Albumin/Creati nine Ratio Urine See Comment <30 mg/g 12/22/2022 12:31 PM [facility] Comment:Unable to calculate the Urine Albumin/Creatinine Ratio due to one or more analyte concentration(s) being outside the measuring limits of the instrument. Urine URINE SPECIMEN OBTAINED BY CLEAN CATCH PROCEDURE / Unknown Collection / Unknown 12/22/2022 11:36 AM REFRACTORY TILE HELPER 12/22/2022 11:43 AM REFRACTORY TILE HELPER Ambar Wong BOATING SAFETY OFFICER-AUTOMOBILE SALESMAN LAB - URINE CHEMISTRY O RDERABLES Final Result [facility] [address] [place] [address], [facility] [phone] from Last 3 Months or Most Recently Relevant to Health Maintenance Insurance [facility] Advance Directives * Full Code (Latest Code Status on File) Date Activated Date Inactivated Comments 04/02/2021 4:22 AM 04/02/2021 11:05 PM Care Teams Forensic Document Examiner Relationship Specialty Start Date End Date Bartolo Aviles DO PCP - General 12/06/23
--- OUTSIDE RECORDS SUMMARY | 2025-04-02 22:03 | XMS_ITS | Encounter Summary ---
Author Organization [facility] Address [address] [place] [address] Care Team Providers Care Maintenance Painter Apprentice Name Role Phone Genia Epps MD Unavailable [phone] Genia Epps MD Primary Care Provider [phone] Unknown, Provider Primary Care Provider Unavaila Bartolo Ovalle DO Primary Care Provider Reason for Visit * Reason Onset Date Comments MEDICATION REFILL 10/10/2022 Encounter Details Date Type Department Care Team (Late st Contact Info) Description 10/10/2022 Refill [facility] Pediatrics - Diabetes [facility] [address] [place] [address] Ambar Wong, GRAY TENDER-SPAGHETTI PRESS HELPER [facility] [place] [address] MEDICATION REFILL Social History Tobacco Use Types [...] on file Legal Sex Male 8:23 AM CHIEF INTERNAL AUDITOR Gender Identity Not on file Sexual Orientation Not on file COVID-19 Exposure Response Date Recorded In the last 10 days, have yo u been in contact with someone who was confirmed or suspected to have Coronavirus/COVID-19? No / Unsure 10/10/2022 9:44 AM CHIEF INTERNAL AUDITOR documented as of this encounter Functional Status * Is person deaf or have serious hearing difficulty? Answer Date of Assessment Author No 04/02/2021 4:33 AM Michael Huang RN * Is person blind or have serious difficulty seeing? Answer Date of Assessment Author No 04/02/2021 4:33 AM Michael Huang RN * Does person have serious difficulty walking/climbing stairs? Answer Date of Assessment Author No 04/02/2021 4:33 AM Michael Huang RN * Does person have difficulty dressing/bathing? Answer Date of Assessment Author No 04/02/2021 4:33 AM Michael Huang RN * Does person have difficulty doing errands alone? Answer Date of Assessment Author No 04/02/2021 4:33 AM Michael Huang RN * Over the past 2 weeks, how often have you been bothered by any of the following problems? Question Answer Date of Assessment Author Little interest or pleasure in doing things Not at all 10/10/2022 9:58 AM Hillary Oneill RN Feeling down, depressed, or hopeless Not at all 10/10/2022 9:58 AM Hillary Oneill RN Patient Health Questionnaire -2 Score 0 10/10/2022 9:58 AM Hillary Oneill RN documented as of this encounter Mental Status * Does person have difficulty concentrating/remembering/making decisions? Answer Entry Date Author No 04/02/2021 4:33 AM Michael Huang RN documented in this encounter Plan of Treatment Not on file documented as of this encounter Goals Goal Patient Goal Type Associated Problems Recent Progress Patient-Stated? Author Use safety retraint in car Lifestyle On track( 022 11:33 AM CHIEF INTERNAL AUDITOR) Elli Emerson RN documented as of this encounter Visit Diagnoses Diagnosis Uncontrolled type 1 diabetes mellitus with hyperglycemia (HCC) documented in this encounter Care Teams Maintenance Painter Apprentice Relationship Specialty Start Date End Date Genia Epps MD PCP - Pediatrics Pediatrics 11/22/11 10/02/23 Genia Epps MD PCP - General Pediatrics 04/12/20 10/02/23 Unknown, Provider PCP - General 11/07/23 12/05/23 Bartolo Aviles DO PCP - General 12/06/23 documented as of this encounter
--- OUTSIDE RECORDS SUMMARY | 2025-04-02 22:03 | XMS_ITS | Encounter Summary ---
Author Organization [facility] Address [address] [facility] [place] [address] Care Team Providers Care Lab Courier Name Role Phone Genia Epps MD Unavailable [phone] Genia Epps MD Primary Care Provider [phone] Unknown, Provider Primary Care Provider Unavaila Bartolo Ovalle DO Primary Care Provider Reason for Visit * Reason Onset Date Comments MEDICATION REFILL 08/03/2015 Encounter Details Date Type Department Care Team (Late st Contact Info) Description 08/03/2015 Refill [facility] Pediatrics - Endocrinology [address] [place] [address] Rafa Farias APRN-DIRECTOR [employer] [address] [place] [address] MEDICATION REFILL Social History Tobacco Use Types Packs/Day Years Used Date Smoking Tobacco: Never Alcohol Use Standard Drinks/Week Comments No 0 (1 standard drink = 0.6 oz pur e alcohol) Sex and Gender Information Value Date Recorded Sex Assigned at Not on file Legal Sex Male 8:23 AM ROOM CLERK Gender Identity Not on file Sexual Orientation Not on file documented as of this encounter Plan of Treatment Not on file documented as of this encounter Goals Goal Patient Goal Type Associated Problems Recent Progress Patient-Stated? Author Use safety retraint in car Lifestyle On track( 022 11:33 AM ROOM CLERK) No Elli Lainez RN documented as of this encounter Visit Diagnoses Not on filedocumented in this encounter Additional Health Concerns Infection Onset Date Last Indicated Resolved Time COVID-19 Under Investigation 11/05/2020 11/05/2020 11/05/2020 3:52 PM ROOM CLERK COVID-19 Under Investigation 11/14/2021 11/14/2021 11/25/2021 4:33 AM ROOM CLERK documented as of this encounter Care Teams Lab Courier Relationship Specialty Start Date End Date Genia Epps MD PCP - Pediatrics Pediatrics 11/22/11 10/02/23 Genia Epps MD PCP - General Pediatrics 04/12/20 10/02/23 Unknown, Provider PCP - General 11/07/23 12/05/23 Bartolo Aviles DO PCP - General 12/06/23 documented as of this encounter
--- OUTSIDE RECORDS SUMMARY | 2025-04-02 22:03 | XMS_ITS | Encounter Summary ---
Author Organization [facility] Address [address] [facility] [place] [address] Care Team Providers Care Vender Name Role Phone Genia Epps MD Unavailable [phone] Genia Epps MD Primary Care Provider [phone] Unknown, Provider Primary Care Provider Unavaila Bartolo Ovalle DO Primary Care Provider Reason for Visit * Reason Onset Date Comments MEDICATION REFILL 09/21/2017 Encounter Details Date Type Department Care Team (Late st Contact Info) Description 09/21/2017 Refill [facility] Pediatrics - Endocrinology [address] [place] [address] Rafa Farias APRN-CNC MILLING MACHINE OPERATOR [address] [place] [address] MEDICATION REFILL Social History Tobacco Use Types Packs/Day Years Used Date Smoking Tobacco: Passive Smo ke Exposure - Never Smoker Smokeless Tobacco: Never Alcohol Use Standard Drinks/Week Comments No 0 (1 standard drink = 0.6 oz pur e alcohol) Sex and Gender Information Value Date Recorded Sex Assigned at Not on file Legal Sex Male 8:23 AM DENTURE TECHNICIAN Gender Identity Not on file Sexual Orientation Not on file documented as of this encounter Plan of Treatment Not on file documented as of this encounter Goals Goal Patient Goal Type Associated Problems Recent Progress Patient-Stated? Author Use safety retraint in car Lifestyle On track( 022 11:33 AM DENTURE TECHNICIAN) No Elli Lainez RN documented as of this encounter Visit Diagnoses Diagnosis Type 1 diabetes mellitus without complication, with long-term current use of insulin (HCC) documented in this encounter Additional Health Concerns Infection Onset Date Last Indicated Resolved Time COVID-19 Under Investigation 11/05/2020 11/05/2020 11/05/2020 3:52 PM DENTURE TECHNICIAN COVID-19 Under Investigation 11/14/2021 11/14/2021 11/25/2021 4:33 AM DENTURE TECHNICIAN documented as of this encounter Care Teams Vender Relationship Specialty Start Date End Date Genia Epps MD PCP - Pediatrics Pediatrics 11/22/11 10/02/23 Genia Epps MD PCP - General Pediatrics 04/12/20 10/02/23 Unknown, Provider PCP - General 11/07/23 12/05/23 Bartolo Aviles DO PCP - General 12/06/23 documented as of this encounter
--- OUTSIDE RECORDS SUMMARY | 2025-04-02 22:03 | XMS_ITS | Encounter Summary ---
Author Organization [facility] Address [address] [facility] [address] Care Team Providers Care Otr Truck Driver Name Role Phone Genia Epps MD Unavailable [phone] Genia Epps MD Primary Care Provider [phone] Unknown, Provider Primary Care Provider Unavaila Bartolo Ovalle DO Primary Care Provider Encounter Details Date Type Department Care Team (Late st Contact Info) Description 05/09/2022 Telephone [facility] Pediatrics - Diabetes [address] [address] Liat Dumont DO [address] [place] [id number] Social History Tobacco Use Types Packs/Day Years Used Date Smoking Tobacco: Passive Smo ke Exposure - Never Smoker Smokeless Tobacco: Never Alcohol Use Standard Drinks/Week Comments No 0 (1 standard drink = 0.6 oz pur e alcohol) PHQ-2 Answer Date Recorded PHQ2 TOTAL SCORE 0 02/11/2021 Sex and Gender Information Value Date Recorded Sex Assigned at Not on file Legal Sex Male 8:23 AM OFFICE SUPPORT ASSOCIATE Gender Identity Not on file Sexual Orientation Not on file documented as of this encounter Functional Status * Is person deaf or have serious hearing difficulty? Answer Date of Assessment Author No 04/02/2021 4:33 AM CDT Michael Concepcion RN * Is person blind or have serious difficulty seeing? Answer Date of Assessment Author No 04/02/2021 4:33 AM CDT Michael Concepcion RN * Does person have serious difficulty walking/climbing stairs? Answer Date of Assessment Author No 04/02/2021 4:33 AM CDT Michael Concepcion RN * Does person have difficulty dressing/bathing? Answer Date of Assessment Author No 04/02/2021 4:33 AM CDT Michael Concepcion RN * Does person have difficulty doing errands alone? Answer Date of Assessment Author No 04/02/2021 4:33 AM CDT Michael Concepcion RN documented as of this encounter Mental Status * Does person have difficulty concentrating/remembering/making decisions? Answer Entry Date Author No 04/02/2021 4:33 AM LUIST Michael Concepcion RN documented in this encounter Miscellaneous Notes * Telephone Encounter - Karime Browne RN - 05/09/2022 12:40 PM CDT PA sent to [facility] via [facility] for Dexcom transmitter. * Telephone Encounter - Karime Browne RN - 05/09/2022 7:47 AM CDT Received approval for Dexcom sensors through 05/08/23 from [facility]. documented in this encounter Plan of Treatment Not on file documented as of this encounter Goals Goal Patient Goal Type Associated Problems Recent Progress Patient-Stated? Author Use safety retraint in car Lifestyle On track( 022 11:33 AM OFFICE SUPPORT ASSOCIATE) No Elli Lainez, RN documented as of this encounter Visit Diagnoses Not on filedocumented in this encounter Care Teams Otr Truck Driver Relationship Specialty Start Date End Date Genia Epps MD PCP - Pediatrics Pediatrics 11/22/11 10/02/23 Genia Epps MD PCP - General Pediatrics 04/12/20 10/02/23 Unknown, Provider PCP - General 11/07/23 12/05/23 Bartolo Aviles DO PCP - General 12/06/23 documented as of this encounter
--- OUTSIDE RECORDS SUMMARY | 2025-04-02 22:03 | XMS_ITS | Encounter Summary ---
Author Organization [facility] [employer] Address [address] [facility] [place] [address] Care Team Providers Care Predictive Maintenance Technician Name Role Phone Genia Epps MD Unavailable [phone] Genia Epps MD Primary Care Provider [phone] Unknown, Provider Primary Care Provider Unavaila Bartolo Ovalle DO Primary Care Provider Reason for Visit * Reason Onset Date Comments MEDICATION REFILL 12/29/2021 Encounter Details Date Type Department Care Team (Late st Contact Info) Description 12/29/2021 Refill [facility] Pediatrics - Diabetes [facility] [address] [place] [address] Ambar Wong, FIELD SERVICE SPECIALIST-BUSINESS BANKING MANAGER [facility] [place] [address] MEDICATION REFILL Social History Tobacco Use Types [...] on file Legal Sex Male 8:23 AM CARTRIDGE GAUGER Gender Identity Not on file Sexual Orientation Not on file COVID-19 Exposure Response Date Recorded In the last month, have you been in contact with someone who was confirmed or suspected to have Coronavirus / COVID-19? No / Unsure 12/15/2021 1:21 PM CARTRIDGE GAUGER documented as of this encounter Functional Status [...] 04/02/2021 4:33 AM Michael Huang RN documented as of this encounter Mental Status * Does person have difficulty concentrating/remembering/making decisions? Answer Entry Date Author No 04/02/2021 4:33 AM Michael Huang RN documented in this encounter Plan of Treatment Not on file documented as of this encounter Goals Goal Patient Goal Type Associated Problems Recent Progress Patient-Stated? Author Use safety retraint in car Lifestyle On track( 022 11:33 AM CARTRIDGE GAUGER) No Elli Lainez RN documented as of this encounter Visit Diagnoses Diagnosis Type 1 diabetes mellitus with hyperglycemia (HCC)- Primary Type I (juvenile type) diabetes mellitus without mention of complication, not stated as uncontrolled documented in this encounter Care Teams Predictive Maintenance Technician Relationship Specialty Start Date End Date Genia Epps MD PCP - Pediatrics Pediatrics 11/22/11 10/02/23 Genia Epps MD PCP - General Pediatrics 04/12/20 10/02/23 Unknown, Provider PCP - General 11/07/23 12/05/23 Bartolo Aviles DO PCP - General 12/06/23 documented as of this encounter
--- OUTSIDE RECORDS SUMMARY | 2025-04-02 22:03 | XMS_ITS | Encounter Summary ---
Author Organization [facility] Address [address] [place] [address] Care Team Providers Care Coordinator Of Rehabilitation Services Name Role Phone Genia Epps MD Unavailable [phone] Genia Epps MD Primary Care Provider [phone] Unknown, Provider Primary Care Provider Unavaila Bartolo Ovalle DO Primary Care Provider Reason for Visit * Reason Onset Date Comments MEDICATION REFILL 01/14/2018 Encounter Details Date Type Department Care Team (Late st Contact Info) Description 01/14/2018 Refill [facility] Pediatrics - Endocrinology [address] [place] [address] Rafa Farias APRN-SKIVER MACHINE OPERATOR [address] [place] [address] MEDICATION REFILL Social History Tobacco Use Types Packs/Day Years Used Date Smoking Tobacco: Passive Smo ke Exposure - Never Smoker Smokeless Tobacco: Never Alcohol Use Standard Drinks/Week Comments No 0 (1 standard drink = 0.6 oz pur e alcohol) Sex and Gender Information Value Date Recorded Sex Assigned at Not on file Legal Sex Male 8:23 AM CERTIFIED LEGAL INVESTIGATOR Gender Identity Not on file Sexual Orientation Not on file documented as of this encounter Plan of Treatment Not on file documented as of this encounter Goals Goal Patient Goal Type Associated Problems Recent Progress Patient-Stated? Author Use safety retraint in car Lifestyle On track( 022 11:33 AM CERTIFIED LEGAL INVESTIGATOR) No Elli Lainez RN documented as of this encounter Visit Diagnoses Diagnosis Type 1 diabetes mellitus with complication (HCC) Type I (juvenile type) diabetes mellitus with unspecified complication, not stated as uncontrolled documented in this encounter Additional Health Concerns Infection Onset Date Last Indicated Resolved Time COVID-19 Under Investigation 11/05/2020 11/05/2020 11/05/2020 3:52 PM CERTIFIED LEGAL INVESTIGATOR COVID-19 Under Investigation 11/14/2021 11/14/2021 11/25/2021 4:33 AM CERTIFIED LEGAL INVESTIGATOR documented as of this encounter Care Teams Coordinator Of Rehabilitation Services Relationship Specialty Start Date End Date Genia Epps MD PCP - Pediatrics Pediatrics 11/22/11 10/02/23 Genia Epps MD PCP - General Pediatrics 04/12/20 10/02/23 Unknown, Provider PCP - General 11/07/23 12/05/23 Bartolo Aviles DO PCP - General 12/06/23 documented as of this encounter
--- OUTSIDE RECORDS SUMMARY | 2025-04-02 22:03 | XMS_ITS | Encounter Summary ---
Author Organization [facility] [employer] Address [address] [facility] [place] [address] Care Team Providers Care Compressor Station Engineer Name Role Phone Genia Epps MD Unavailable [phone] Genia Epps MD Primary Care Provider [phone] Unknown, Provider Primary Care Provider Unavaila Bartolo Ovalle DO Primary Care Provider Reason for Visit * Reason Onset Date Comments General 09/21/2020 Encounter Details Date Type Department Care Team (Late st Contact Info) Description 09/21/2020 Telephone [facility] Pediatrics - Diabetes [address] [id number] [place] [address] Rafa Farias APRN-JAHAIRA [address] [place] [address] General Social History Tobacco Use Types Packs/Day Years Used Date Smoking Tobacco: Passive Smo ke Exposure - Never Smoker Smokeless Tobacco: Never Alcohol Use Standard Drinks/Week Comments No 0 (1 standard drink = 0.6 oz pur e alcohol) PHQ-2 Answer Date Recorded Patient Health Questionnaire-2 Score 0 08/31/2020 Sex and Gender Information Value Date Recorded Sex Assigned at Not on file Legal Sex Male 8:23 AM ALLIED HEALTH PROFESSIONAL Gender Identity Not on file Sexual Orientation Not on file COVID-19 Exposure Response Date Recorded In the last month, have you been in contact with someone who was confirmed or suspected to have Coronavirus / COVID-19? No / Unsure 08/31/2020 11:05 AM ALLIED HEALTH PROFESSIONAL documented as of this encounter Miscellaneous Notes * Telephone Encounter - Carrillo Morejon RN - 09/21/2020 10:51 AM CST I returned call to maciel Haider started the Dexcom G6 over the weekend ( day #4) reports discomfort at the site (R Abdomen). Denies redness swelling, drainaige. Maciel reports He is hairy, that may have something to do with it. Reports readings seem to be accurate. ALso said he got hot and sweaty, and experience nausea upon insertion of sensor; I explained likely due to being anxious about insertion. I advised if not tolerated, take sensor out, otherwise, if it looks fine and is accurate, try to keep it in place for full 10 days. Try a new site next time, discussed areas to use and most importantly, if using new site like arms, watch for accuracy. 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 They will call us once that's done so that we can send an invitation to share. Advised contact [employer] for questions about use, she agreed. ED HEALTH PROFESSIONAL documented in this encounter Plan of Treatment Not on file documented as of this encounter Goals Goal Patient Goal Type Associated Problems Recent Progress Patient-Stated? Author Use safety retraint in car Lifestyle On track( 022 11:33 AM ALLIED HEALTH PROFESSIONAL) Elli Emerson, ALYX documented as of this encounter Visit Diagnoses Not on filedocumented in this encounter Additional Health Concerns Infection Onset Date Last Indicated Resolved Time COVID-19 Under Investigation 11/05/2020 11/05/2020 11/05/2020 3:52 PM ALLIED HEALTH PROFESSIONAL COVID-19 Under Investigation 11/14/2021 11/14/2021 11/25/2021 4:33 AM ALLIED HEALTH PROFESSIONAL documented as of this encounter Care Teams Compressor Station Engineer Relationship Specialty Start Date End Date Genia Epps MD PCP - Pediatrics Pediatrics 11/22/11 10/02/23 Genia Epps MD PCP - General Pediatrics 04/12/20 10/02/23 Unknown, Provider PCP - General 11/07/23 12/05/23 Bartolo Aviles DO PCP - General 12/06/23 documented as of this encounter
--- OUTSIDE RECORDS SUMMARY | 2025-04-02 22:03 | XMS_ITS | Clinical Summary ---
Author Organization [facility] Address [address] [place] [address] Care Team Providers Care Reservations Manager Name Role Phone Unavailable Primary Care Provider Unavailabl e Immunizations Immunization Administration Dates Next Due Covid-19, Mrna, Lnp-s, Pf, 30 Mcg/0.3 Ml Dose (P fizer) 10/19/2021 Social History Tobacco Use Types Packs/Day Years Used Date Smoking Tobacco: Never Assessed Sex and Gender Information Value Date Recorded Sex Assigned at Not on file Legal Sex Male 9:02 PM RUG REPAIRER Gender Identity Not on file Sexual Orientation Not on file Plan of Treatment Health Maintenance Due Date Last Done Comments Hepatitis C Virus (HCV) Screening 2004 TdaP Immunization 2004 Human Papillomavirus (HPV) Immunization (1 - Male 3-dose series) 2019 Meningococcal B Immunization (1 of 2 - Standard) 2020 Hepatitis B Immunization (1 of 3 - 19+ 3-dose series) 2023 Influenza Immunization (#1) 2024 SARS-COV-2 Immunization (2 - season) 2024 10/19/2021 Respiratory Syncytial Virus (RSV) Immunization (Adult) (1 - 1-dose 75+ series) 2079 Meningococcal Immunization (ACWY) Aged Out No longer eligible based on patient's age to complete this topic Pneumococcal Immunization Combined Aged Out No longer eligible based on patient's age to complete this topic Rotavirus Immunization Aged Out No lo nger eligible based on patient's age to complete this topic
--- OUTSIDE RECORDS SUMMARY | 2025-04-02 22:03 | XMS_ITS | Encounter Summary ---
Author Organization [facility] [employer] Address [address] [place] [address] Care Team Providers Care Comprehensive Ophthalmologist Name Role Phone Genia Epps MD Unavailable [phone] Genia Epps MD Primary Care Provider [phone] Unknown, Provider Primary Care Provider Unavaila Bartolo Ovalle DO Primary Care Provider Encounter Details Date Type Department Care Team (Late st Contact Info) Description 04/18/2021 Telephone [facility] Pediatrics - Endocrinology [address] [place] [address] Liat Dumont DO [facility] [place] [address] Social History Tobacco Use Types Packs/Day Years [...] on file Legal Sex Male 8:23 AM VETERINARY RADIOLOGIST Gender Identity Not on file Sexual Orientation [...] of Assessment Author No 04/02/2021 4:33 AM LUIST Michael Concepcion RN * Does person have difficulty dressing/bathing? Answer Date of Assessment Author No 04/02/2021 4:33 AM LUIST Michael Concepcion RN * Does person have difficulty doing errands alone? Answer Date of Assessment Author No 04/02/2021 4:33 AM LUIST Michael Concepcion RN documented as of this encounter Mental Status * Does person have difficulty concentrating/remembering/making decisions? Answer Entry Date Author No 04/02/2021 4:33 AM Michael Huang RN documented in this encounter Miscellaneous Notes * Telephone Encounter - Liat DumontVictor M, DO - 04/18/2021 3:06 PM CDT Grandmother called through exchange for urgent Dexcom refill. I reviewed chart and saw script placed 04/14. I called grandmother to inform her. She was already aware, going to pharmacy soon to nut picker.She did not receive a notification when the script was ready previously. While on phone, grandmother reported that Haider's hospitalization was being denied because he was not admitted for a full 24 hours. She was concerned that he was discharged too early because air conditioner was broken. I reassured her that we would not discharge someone for DKA before DKA is resolved. I reviewed the chart andprovided information that labs showed he was clearly out of DKA before discharge, and the short duration was because he was only in mild to moderate DKA. documented in this encounter Plan of Treatment Not on file documented as of this encounter Goals Goal Patient Goal Type Associated Problems Recent Progress Patient-Stated? Author Use safety retraint in car Lifestyle On track( 022 11:33 AM VETERINARY RADIOLOGIST) No Elli Lainez RN documented as of this encounter Visit Diagnoses Not on filedocumented in this encounter Additional Health Concerns Infection Onset Date Last Indicated Resolved Time COVID-19 Under Investigation 11/14/2021 11/14/2021 11/25/2021 4:33 AM VETERINARY RADIOLOGIST documented as of this encounter Care Teams Comprehensive Ophthalmologist Relationship Specialty Start Date End Date Genia Epps MD PCP - Pediatrics Pediatrics 11/22/11 10/02/23 Genia Epps MD PCP - General Pediatrics 04/12/20 10/02/23 Unknown, Provider PCP - General 11/07/23 12/05/23 aBrtolo Aviles DO PCP - General 12/06/23 documented as of this encounter
--- OUTSIDE RECORDS SUMMARY | 2025-04-02 22:03 | XMS_ITS | Encounter Summary ---
Author Organization [facility] [employer] Address [address] [facility] [place] [address] Care Team Providers Care Machine Tool Technician Instructor Name Role Phone Genia Epps MD Unavailable [phone] Genia Epps MD Primary Care Provider [phone] Unknown, Provider Primary Care Provider Unavaila Bartolo Ovalle DO Primary Care Provider Reason for Visit * Reason Onset Date Comments MEDICATION REFILL 12/30/2021 Encounter Details Date Type Department Care Team (Late st Contact Info) Description 12/30/2021 Refill [facility] Pediatrics - Diabetes [facility] [address] [place] [address] Ambar Wong, DEPARTMENT ADMINISTRATOR-DOUGH PANNER [facility] [place] [address] MEDICATION REFILL Social History Tobacco Use Types [...] on file Legal Sex Male 8:23 AM PROJECT SPECIALIST Gender Identity Not on file Sexual Orientation Not on file COVID-19 Exposure Response Date Recorded In the last month, have you been in contact with someone who was confirmed or suspected to have Coronavirus / COVID-19? No / Unsure 12/15/2021 1:21 PM PROJECT SPECIALIST documented as of this encounter Functional Status [...] car Lifestyle On track( 022 11:33 AM PROJECT SPECIALIST) No Elli Lainez RN documented as of this encounter Visit Diagnoses Diagnosis Type 1 diabetes mellitus without complication, with long-term current use of insulin (HCC)- Primary documented in this encounter Care Teams Machine Tool Technician Instructor Relationship Specialty Start Date End Date Genia Epps MD PCP - Pediatrics Pediatrics 11/22/11 10/02/23 Genia Epps MD PCP - General Pediatrics 04/12/20 10/02/23 Unknown, Provider PCP - General 11/07/23 12/05/23 Bartolo Aviles DO PCP - General 12/06/23 documented as of this encounter
--- OUTSIDE RECORDS SUMMARY | 2025-04-02 22:03 | XMS_ITS | Encounter Summary ---
Author Organization [facility] [employer] Address [address] [facility] [place] [address] Care Team Providers Care Coal Trammer Name Role Phone Genia Epps MD Unavailable [phone] Genia Epps MD Primary Care Provider [phone] Unknown, Provider Primary Care Provider Unavaila Bartolo Ovalle DO Primary Care Provider Reason for Visit * Reason Onset Date Comments MEDICATION REFILL 12/27/2021 Encounter Details Date Type Department Care Team (Late st Contact Info) Description 12/27/2021 Refill [facility] Pediatrics - Diabetes [facility] [address] [place] [address] Ambar Wong, ELECTRIC METER INSPECTOR-WORK CHECKER [facility] [place] [address] MEDICATION REFILL Social History Tobacco Use Types [...] on file Legal Sex Male 8:23 AM HOURLY CAREGIVER Gender Identity Not on file Sexual Orientation Not on file COVID-19 Exposure Response Date Recorded In the last month, have you been in contact with someone who was confirmed or suspected to have Coronavirus / COVID-19? No / Unsure 12/15/2021 1:21 PM HOURLY CAREGIVER documented as of this encounter Functional Status [...] car Lifestyle On track( 022 11:33 AM HOURLY CAREGIVER) No Elli Lainez RN documented as of this encounter Visit Diagnoses Diagnosis Uncontrolled type 1 diabetes mellitus with hyperglycemia (HCC) documented in this encounter Care Teams Coal Trammer Relationship Specialty Start Date End Date Genia Epps MD PCP - Pediatrics Pediatrics 2/8/12 12/19/23 Genia Epps MD PCP - General Pediatrics 04/12/20 10/02/23 Unknown, Provider PCP - General 11/07/23 12/05/23 Bartolo Aviles DO PCP - General 12/06/23 documented as of this encounter
--- OUTSIDE RECORDS SUMMARY | 2025-04-02 22:04 | XMS_ITS | Encounter Summary ---
Author Organization [facility] [employer] Address [address] [facility] [place] [address] Care Team Providers Care High School Library Media Specialist Name Role Phone Genia Epps MD Unavailable [phone] Karen Hook MD Primary Care Provider [phone] Genia Epps MD Primary Care Provider [phone] Unknown, Provider Primary Care Provider Unavaila Bartolo Ovalle DO Primary Care Provider Reason for Visit * Reason Onset Date Comments Letter for School or Work 07/16/2013 Please send changes made to diabetes plan to School RNReina Rios [phone] Encounter Details Date Type Department Care Team (Late st Contact Info) Description 07/16/2013 Telephone [facility] Pediatrics - Diabetes Mgmt [address] [place] [address] Gideon Bryant MD [address] [place] [address] [phone] Letter for School or Work (Please send changes made to diabetes plan to School RN- Milagros Rios [phone]) Social History Tobacco Use Types Packs/Day Years Used Date Smoking Tobacco: Never Alcohol Use Standard Drinks/Week Comments No 0 (1 standard drink = 0.6 oz pur e alcohol) Sex and Gender Information Value Date Recorded Sex Assigned at Not on file Legal Sex Male 8:23 AM CURING OVEN TENDER Gender Identity Not on file Sexual Orientation Not on file documented as of this encounter Plan of Treatment Not on file documented as of this encounter Visit Diagnoses Not on filedocumented in this encounter Additional Health Concerns Infection Onset Date Last Indicated Resolved Time COVID-19 Under Investigation 11/05/2020 11/05/2020 11/05/2020 3:52 PM CURING OVEN TENDER COVID-19 Under Investigation 11/14/2021 11/14/2021 11/25/2021 4:33 AM CURING OVEN TENDER documented as of this encounter Care Teams High School Library Media Specialist Relationship Specialty Start Date End Date Genia Epps MD PCP - Pediatrics Pediatrics 11/22/11 10/02/23 Karen Hook MD PCP - General Pediatrics 09/21/12 01/26/14 Genia Epps MD PCP - General Pediatrics 04/12/20 10/02/23 Unknown, Provider PCP - General 11/07/23 12/05/23 Bartolo Aviles DO PCP - General 12/06/23 documented as of this encounter
--- OUTSIDE RECORDS SUMMARY | 2025-04-02 22:04 | XMS_ITS | Encounter Summary ---
Author Organization [facility] [employer] Address [address] [facility] [place] [address] Care Team Providers Care Temperature Inspector Name Role Phone Genia Epps MD Unavailable [phone] Genia Epps MD Primary Care Provider [phone] Karen Hook MD Primary Care Provider [phone] Genia Epps MD Primary Care Provider [phone] Unknown, Provider Primary Care Provider Unavaila Bartolo Ovalle DO Primary Care Provider Reason for Visit * Reason Onset Date Comments MEDICATION REFILL 04/21/2012 Encounter Details Date Type Department Care Team (Late st Contact Info) Description 04/21/2012 Refill [facility] Pediatrics - Diabetes Mgmt [address] [place] [address] Gideon Bryant MD [address] [place] [address] [phone] MEDICATION REFILL Social History Tobacco Use Types Packs/Day Years Used Date Smoking Tobacco: Never Assessed Sex and Gender Information Value Date Recorded Sex Assigned at Not on file Legal Sex Male 8:23 AM HELP DESK MANAGER Gender Identity Not on file Sexual Orientation Not on file documented as of this encounter Miscellaneous Notes * Telephone Encounter - Lexy Vallejo RN - 04/25/2012 12:52 PM CDT Grandfather calling in to review bg's. documented in this encounter Plan of Treatment Not on file documented as of this encounter Visit Diagnoses Not on filedocumented in this encounter Additional Health Concerns Infection Onset Date Last Indicated Resolved Time COVID-19 Under Investigation 11/05/2020 11/05/2020 11/05/2020 3:52 PM HELP DESK MANAGER COVID-19 Under Investigation 11/14/2021 11/14/2021 11/25/2021 4:33 AM HELP DESK MANAGER documented as of this encounter Care Teams Temperature Inspector Relationship Specialty Start Date End Date Genia Epps MD PCP - Pediatrics Pediatrics 11/22/11 10/02/23 Genia Epps MD PCP - General Pediatrics 04/23/12 09/20/12 Karen Hook MD PCP - General Pediatrics 09/21/12 01/26/14 Genia Epps MD PCP - General Pediatrics 04/12/20 10/02/23 Unknown, Provider PCP - General 11/07/23 12/05/23 Bartolo Aviles DO PCP - General 12/06/23 documented as of this encounter
--- OUTSIDE RECORDS SUMMARY | 2025-04-02 22:04 | XMS_ITS | Encounter Summary ---
Author Organization [facility] Address [address] [facility] [place] [address] Care Team Providers Care Supervisor Shuttle Veneering Name Role Phone Genia Epps MD Unavailable [phone] Genia Epps MD Primary Care Provider [phone] Unknown, Provider Primary Care Provider Unavaila Bartolo Ovalle DO Primary Care Provider Encounter Details Date Type Department Care Team (Late st Contact Info) Description 04/28/2020 Telephone [facility] - Diabetes [address] [address] Genia Pires, RN Social History Tobacco Use Types Packs/Day Years Used Date Smoking Tobacco: Passive Smo ke Exposure - Never Smoker Smokeless Tobacco: Never Alcohol Use Standard Drinks/Week Comments No 0 (1 standard drink = 0.6 oz pur e alcohol) Sex and Gender Information Value Date Recorded Sex Assigned at Not on file Legal Sex Male 8:23 AM FILAMENT WELDER Gender Identity Not on file Sexual Orientation Not on file COVID-19 Exposure Response Date Recorded In the last month, have you been in contact with someone who was confirmed or suspected to have Coronavirus / COVID-19? No / Unsure 04/27/2020 11:08 AM CDT documented as of this encounter Plan of Treatment Not on file documented as of this encounter Goals Goal Patient Goal Type Associated Problems Recent Progress Patient-Stated? Author Use safety retraint in car Lifestyle On track( 022 11:33 AM FILAMENT WELDER) Elli Emerson RN documented as of this encounter Visit Diagnoses Not on filedocumented in this encounter Additional Health Concerns Infection Onset Date Last Indicated Resolved Time COVID-19 Under Investigation 11/05/2020 11/05/2020 11/05/2020 3:52 PM FILAMENT WELDER COVID-19 Under Investigation 11/14/2021 11/14/2021 11/25/2021 4:33 AM FILAMENT WELDER documented as of this encounter Care Teams Supervisor Shuttle Veneering Relationship Specialty Start Date End Date Genia Epps MD PCP - Pediatrics Pediatrics 11/22/11 10/02/23 Genia Epps MD PCP - General Pediatrics 04/12/20 10/02/23 Unknown, Provider PCP - General 11/07/23 12/05/23 Bartolo Aviles DO PCP - General 12/06/23 documented as of this encounter
--- OUTSIDE RECORDS SUMMARY | 2025-04-02 22:04 | XMS_ITS | Encounter Summary ---
Author Organization [facility] [employer] Address [address] [facility] [place] [address] Care Team Providers Care Supervisor Laboratory Animal Facility Name Role Phone Genia Epps MD Unavailable [phone] Genia Epps MD Primary Care Provider [phone] Unknown, Provider Primary Care Provider Unavaila Bartolo Ovalle DO Primary Care Provider Encounter Details Date Type Department Care Team (Late st Contact Info) Description 04/19/[address] [facility] Pediatrics - Diabetes [address] [address] Liat Dumont DO [address] [place] [address] Social History Tobacco Use Types Packs/Day Years [...] on file Legal Sex Male 8:23 AM HOSPITAL ADMISSIONS CLERK Gender Identity Not on file Sexual [...] Entry Date Author No 04/02/2021 4:33 AM CDT Michael Concepcion RN documented in this encounter Miscellaneous Notes * Telephone Encounter - Karime Browne RN - 04/19/2021 8:04 AM CDT Received approval for [employer] system x 1 year from [place]. documented in this encounter Plan of Treatment Not on file documented as of this encounter Goals Goal Patient Goal Type Associated Problems Recent Progress Patient-Stated? Author Use safety retraint in car Lifestyle On track( 022 11:33 AM HOSPITAL ADMISSIONS CLERK) Elli Emerson RN documented as of this encounter Visit Diagnoses Not on filedocumented in this encounter Additional Health Concerns Infection Onset Date Last Indicated Resolved Time COVID-19 Under Investigation 11/14/2021 11/14/2021 11/25/2021 4:33 AM HOSPITAL ADMISSIONS CLERK documented as of this encounter Care Teams Supervisor Laboratory Animal Facility Relationship Specialty Start Date End Date Genia Epps MD PCP - Pediatrics Pediatrics 11/22/11 10/02/23 Genia Epps MD PCP - General Pediatrics 04/12/20 10/02/23 Unknown, Provider PCP - General 11/07/23 12/05/23 Bartolo Aviles DO PCP - General 12/06/23 documented as of this encounter
--- OUTSIDE RECORDS SUMMARY | 2025-04-02 22:04 | XMS_ITS | Encounter Summary ---
Author Organization [facility] [employer] Address [address] [facility] [place] [address] Care Team Providers Care Life Skills Coordinator Name Role Phone Genia Epps MD Unavailable [phone] Genia Epps MD Primary Care Provider [phone] Unknown, Provider Primary Care Provider Unavaila Bartolo Ovalle DO Primary Care Provider Reason for Visit * Reason Onset Date Comments Letter for School or Work 11/23/2015 Encounter Details Date Type Department Care Team (Late st Contact Info) Description 11/23/2015 Telephone [facility] - Diabetes [address] [place] [address] Gideon Bryant MD [address] [place] [id number] Letter for School or Work Social History Tobacco Use Types Packs/Day Years Used Date Smoking Tobacco: Never Alcohol Use Standard Drinks/Week Comments No 0 (1 standard drink = 0.6 oz pur e alcohol) Sex and Gender Information Value Date Recorded Sex Assigned at Not on file Legal Sex Male 8:23 AM WASH HELPER Gender Identity Not on file Sexual Orientation Not on file documented as of this encounter Plan of Treatment Not on file documented as of this encounter Goals Goal Patient Goal Type Associated Problems Recent Progress Patient-Stated? Author Use safety retraint in car Lifestyle On track( 022 11:33 AM WASH HELPER) No Elli Lainez RN documented as of this encounter Visit Diagnoses Not on filedocumented in this encounter Additional Health Concerns Infection Onset Date Last Indicated Resolved Time COVID-19 Under Investigation 11/05/2020 11/05/2020 11/05/2020 3:52 PM WASH HELPER COVID-19 Under Investigation 11/14/2021 11/14/2021 11/25/2021 4:33 AM WASH HELPER documented as of this encounter Care Teams Life Skills Coordinator Relationship Specialty Start Date End Date Genia Epps MD PCP - Pediatrics Pediatrics 11/22/11 10/02/23 Genia Epps MD PCP - General Pediatrics 04/12/20 10/02/23 Unknown, Provider PCP - General 11/07/23 12/05/23 Bartolo Aviles DO PCP - General 12/06/23 documented as of this encounter
--- OUTSIDE RECORDS SUMMARY | 2025-04-02 22:04 | XMS_ITS | Encounter Summary ---
Author Organization [facility] [employer] Address [address] [facility] [place] [address] Care Team Providers Care Perinatal Tech Name Role Phone Genia Epps MD Unavailable [phone] Genia Epps MD Primary Care Provider [phone] Unknown, Provider Primary Care Provider Unavaila Bartolo Ovalle DO Primary Care Provider Encounter Details Date Type Department Care Team (Late st Contact Info) Description 09/06/2021 Telephone [facility] Pediatrics - Diabetes [address] [address] Liat Dumont DO [address] [place] [address] Social History Tobacco Use Types Packs/Day Years [...] on file Legal Sex Male 8:23 AM DELIVERY TABLE FEEDER Gender Identity Not on file Sexual Orientation [...] Telephone Encounter - Karime Browne RN - 09/06/2021 11:54 AM DELIVERY TABLE FEEDER Received approval for [employer] sensors through 10/14/21. Pharmacy notified. VERY TABLE FEEDER documented in this encounter Plan of Treatment Not on file documented as of this encounter Goals Goal Patient Goal Type Associated Problems Recent Progress Patient-Stated? Author Use safety retraint in car Lifestyle On track( 022 11:33 AM DELIVERY TABLE FEEDER) Elli Emerson RN documented as of this encounter Visit Diagnoses Not on filedocumented in this encounter Additional Health Concerns Infection Onset Date Last Indicated Resolved Time COVID-19 Under Investigation 11/14/2021 11/14/2021 11/25/2021 4:33 AM DELIVERY TABLE FEEDER documented as of this encounter Care Teams Perinatal Tech Relationship Specialty Start Date End Date Genia Epps MD PCP - Pediatrics Pediatrics 11/22/11 10/02/23 Genia Epps MD PCP - General Pediatrics 04/12/20 10/02/23 Unknown, Provider PCP - General 11/07/23 12/05/23 Bartolo Aviles DO PCP - General 12/06/23 documented as of this encounter
--- OUTSIDE RECORDS SUMMARY | 2025-04-02 22:04 | XMS_ITS | Encounter Summary ---
Author Organization [facility] [employer] Address [address] [facility] [address] Care Team Providers Care Rural Health Consultant Name Role Phone Genia Epps MD Unavailable [phone] Karen Hook MD Primary Care Provider [phone] Genia Epps MD Primary Care Provider [phone] Unknown, Provider Primary Care Provider Unavail Bartolo Ovalle DO Primary Care Provider Encounter Details Date Type Department Care Team (Late st Contact Info) Description 05/20/2013 Telephone [facility] Pediatrics - Diabetes [address] [place] [address] Gideon Bryant MD [address] [place] [address] Social History Tobacco Use Types Packs/Day Years Used Date Smoking Tobacco: Never Alcohol Use Standard Drinks/Week Comments No 0 (1 standard drink = 0.6 oz pur e alcohol) Sex and Gender Information Value Date Recorded Sex Assigned at Not on file Legal Sex Male 8:23 AM POLICY SERVICES REPRESENTATIVE Gender Identity Not on file Sexual Orientation Not on file documented as of this encounter Plan of Treatment Not on file documented as of this encounter Visit Diagnoses Not on filedocumented in this encounter Additional Health Concerns Infection Onset Date Last Indicated Resolved Time COVID-19 Under Investigation 11/05/2020 11/05/2020 11/05/2020 3:52 PM POLICY SERVICES REPRESENTATIVE COVID-19 Under Investigation 11/14/2021 11/14/2021 11/25/2021 4:33 AM POLICY SERVICES REPRESENTATIVE documented as of this encounter Care Teams Rural Health Consultant Relationship Specialty Start Date End Date Genia Epps MD PCP - Pediatrics Pediatrics 11/22/11 10/02/23 Karen Hook MD PCP - General Pediatrics 09/21/12 01/26/14 Genia Epps MD PCP - General Pediatrics 04/12/20 10/02/23 Unknown, Provider PCP - General 11/07/23 12/05/23 Bartolo Aviles DO PCP - General 12/06/23 documented as of this encounter
--- OUTSIDE RECORDS SUMMARY | 2025-04-02 22:04 | XMS_ITS | Encounter Summary ---
Author Organization [facility] [employer] Address [address] [place] [address] Care Team Providers Care Contact Lens Polisher Name Role Phone Genia Epps MD Unavailable [phone] Genia Epps MD Primary Care Provider [phone] Karen Hook MD Primary Care Provider [phone] Genia Epps MD Primary Care Provider [phone] Unknown, Provider Primary Care Provider Unavaila Bartolo Ovalle DO Primary Care Provider Reason for Visit * Reason Onset Date Comments MEDICATION REFILL 04/21/2012 Encounter Details Date Type Department Care Team (Late st Contact Info) Description 04/21/2012 Refill [facility] Pediatrics - Diabetes Mgmt [address] [place] [address] Gideon Bryant MD [address] [place] [id number] MEDICATION REFILL Social History Tobacco Use Types Packs/Day Years Used Date Smoking Tobacco: Never Assessed Sex and Gender Information Value Date Recorded Sex Assigned at Not on file Legal Sex Male 8:23 AM RATE AND COST ANALYST Gender Identity Not on file Sexual Orientation Not on file documented as of this encounter Plan of Treatment Not on file documented as of this encounter Visit Diagnoses Not on filedocumented in this encounter Additional Health Concerns Infection Onset Date Last Indicated Resolved Time COVID-19 Under Investigation 11/05/2020 11/05/2020 11/05/2020 3:52 PM RATE AND COST ANALYST COVID-19 Under Investigation 11/14/2021 11/14/2021 11/25/2021 4:33 AM RATE AND COST ANALYST documented as of this encounter Care Teams Contact Lens Polisher Relationship Specialty Start Date End Date Genia [...]
[2025-04-02 22:07] LABS: Glucose Point of Care 489 mg/dl (65-105)
--- NOTE | 2025-04-02 22:10 | ECG_ITS ---
Test Date: 2025-04-02 22:22:22 Measurements Intervals [place] Rate: 116 P: 72 MA: 153 QRS: 95 QRSD: 98 T: 42 QT: 313 QTc: 437 Interpretive Statements SINUS TACHYCARDIA RIGHT AXIS DEVIATION POSSIBLE LEFT ATRIAL ENLARGEMENT POSSIBLE RIGHT VENTRICULAR CONDUCTION DELAY ABNORMAL ECG No previous ECG available for comparison Electronically Signed On 04-03-2025 07:07:58 CDT by Matheus Luis D.O.
--- NOTE | 2025-04-02 22:16 | ED.GENADULT ---
HPI - General Adult General Chief complaint: Recheck/Abnormal Lab/Rx Stated complaint: high blood sugar Time Seen by Provider: 04/02/25 22:11 History of Present Illness HPI narrative: Patient 19-year-old gentleman who presents emergency department chief complaint of hyperglycemia. The patient reports that he has history of insulin-dependent diabetes and reports that his Dexcom was on back order the patient reports he has not worn his Dexcom in 2 days and reports that he took his insulin pump off since he did not have the continuous glucose monitor and has been dosing himself based off of carb counting patient reports he has not used his stand-alone blood sugars fingerstick and reports that he feels as though he may be starting to go into DKA the patient denies fever denies cough denies shortness of breath Related Data Home Medications ?Medication ?Instructions ?Recorded ?Confirmed ?Last Taken ?Type acetone (urine) test (Ketostix 12/12/23 02/11/25 Unknown History strips) glucagon 3 mg/actuation nasal 3 mg intranasal ONCE 12/12/23 02/11/25 Unknown History spray (Baqsimi) pen needle, diabetic 32 gauge x #1,200 ea 05/27/24 02/11/25 Unknown History (TRUEplus Pen Needle) Allergies Allergy/AdvReac Type Severity Reaction Status Date / Time No Known Allergies Allergy Verified 04/02/25 22:07 Review of Systems Review of Systems: A 10 system review of systems was completed on the patient and is negative except for what is stated in the HPI. Nursing and ancillary documentation was reviewed. [facility] Past Medical History Medical History Hypertension Tobacco abuse Diabetes type I Encounter to establish care Diabetes Family History Family History Grandparent Renal cell carcinoma Diabetes mellitus Hypertension Heart disease Thyroid disorder Social History Social History Smoking packs per day: 0.5 Smoking cigarettes per day: 10.0 Years smoked: 3 Smoking pack-years: 1.50 Smoking status: Current every day smoker Tobacco type: cigarettes Alcohol intake: current Alcohol use details: 5 beers a month Substance use: former Substance use type: marijuana Current Housing: Decline to Answer Concerned About Future Housing: Decline to Answer Difficulty Paying Gas/Electric Bills: Decline to Answer Difficulty Paying for Meds: Decline to Answer Currently Unemployed: Decline to Answer Education: Decline to Answer Difficulty w/ Childcare or Family Care: Decline to Answer Exam Narrative: GENERAL: Well-appearing, well-nourished, and in no acute distress. HEAD: Normocephalic, atraumatic. EYES: PERRLA and EOMI. ENT: Nares clear, no rhinorrhea or epistaxis. Mucous membranes moist. NECK: Supple. CHEST: Clear to auscultation. No respiratory distress. HEART: Regular rate and rhythm. No murmur heard. Normal peripheral pulses. ABDOMEN: Soft, nontender, nondistended, normal active bowel sounds. EXTREMITIES: Normal range of motion. No edema. SKIN: Warm, dry, no rash. NEURO: No focal deficits. Alert and oriented x3. PSYCH: Normal mood and affect. Course Vital Signs Vital signs: Vital Signs Temperature 36.4 C 04/02/25 22:03 Pulse Rate 123 H 04/02/25 22:03 Respiratory Rate 18 04/02/25 22:03 Blood Pressure 145/73 H 04/02/25 22:03 Pulse Oximetry 100 04/02/25 22:03 Oxygen Delivery Room Air 04/02/25 22:03 Temperature 36.4 C 04/02/25 22:03 Pulse Rate 123 H 04/02/25 22:03 Respiratory Rate 18 04/02/25 22:03 Blood Pressure 145/73 H 04/02/25 22:03 Pulse Oximetry 100 04/02/25 22:03 Oxygen Delivery Room Air 04/02/25 22:03 Medical Decision Making [facility] Narrative Medical decision making narrative: Differential diagnosis includes hyperglycemia, DKA, Laboratory studies were obtained on the patient which showed a a blood sugar of 586 patient has an anion gap of 23 and a CO2 of 13 IV fluids were started on the patient 2 L of fluid were administered And insulin drip has been ordered for the patient Vital Signs Vital Signs: Vital Signs Temperature 36.4 C 04/02/25 22:03 Pulse Rate 123 H 04/02/25 22:03 Respiratory Rate 18 04/02/25 22:03 Blood Pressure 145/73 H 04/02/25 22:03 Pulse Oximetry 100 04/02/25 22:03 Oxygen Delivery Room Air 04/02/25 22:03 Temperature 36.4 C 04/02/25 22:03 Pulse Rate 123 H 04/02/25 22:03 Respiratory Rate 18 04/02/25 22:03 Blood Pressure 145/73 H 04/02/25 22:03 Pulse Oximetry 100 04/02/25 22:03 Oxygen Delivery Room Air 04/02/25 22:03 Lab Data 04/02/25 22:27 04/02/25 22:27 Labs: Lab Results 04/02/25 04/02/25 Range/Units 22:04 22:27 WBC 14.1 H (4.5-10.0) K/mm3 RBC 4.99 (4.6-6.20) M/mm3 Hgb 15.5 (14.0-18.0) g/dL Hct 45.5 (42.0-52.0) % MCV 91.2 (80-100) fl MCH 31.1 (26-34) pg MCHC 34.1 (32-36) g/dl RDW 12.4 (11.5-14.5) % Plt Count 351 (150-375) k/mm3 MPV 10.5 H (7.4-10.4) fl Immature Gran % (Auto) 0.9 H (0-0.5) % Neut % (Auto) 67.3 (45.5-73.1) % Lymph % (Auto) 23.2 (18.3-44.2) % Pierce % (Auto) 6.2 (2.6-8.5) % Eos % (Auto) 1.8 (0-4.4) % Baso % (Auto) 0.6 (0.2-1.2) % Lymph # (Auto) 3.27 H (0.9-3.2) K/mm3 Pierce # (Auto) 0.9 H (0.1-0.6) K/mm3 Eos # (Auto) 0.3 (0-0.3) K/mm3 Baso # (Auto) 0.1 (0.0-0.1) K/mm3 Abs Immat Gran (auto) 0.13 H (0.00-0.031) K/mm3 Absolute Neuts (auto) 9.5 H (1.3-6.7) K/mm3 Absolute Nucleated RBC 0.000 (0.0-0.012) K/mm3 Nucleated RBC % 0.0 (0.0-0.2) % Sodium 128 L (137-145) mmol/L Potassium 4.7 (3.4-5.0) mmol/L Chloride 92 L (98-107) mmol/L Carbon Dioxide 13 L (22-30) mmol/L Anion Gap 23 H (4-12) mmol/L BUN 25 H (9-20) mg/dL Creatinine 0.94 (0.7-1.3) mg/dL Estim Creat Clear Calc 106 ml/min Estimated GFR > 60 (59 - ) Glucose 586 H* (65-110) mg/dL POC Capillary Glucose 489 H (65-105) mg/dl Hemoglobin A1c Pending Calcium 9.6 (8.4-10.2) mg/dL Phosphorus 4.3 (2.5-4.5) mg/dL Magnesium 1.9 (1.6-2.3) mg/dL Total Bilirubin 1.3 (0.2-1.3) mg/dL AST 33 (17-59) U/L ALT 27 (6-50) U/L Alkaline Phosphatase 158 H (38-126) U/L Total Protein 7.8 (6.3-8.2) g/dL Albumin 5.3 H (3.5-5.1) g/dL Beta-Hydroxybutyrate/Acetoacetate Pending Critical Care Time Critical Care Time Critical Care Time: Yes Total Critical Care Time: 35 Discharge Plan Discharge Clinical Impression: DKA, type 1 Patient Disposition: Still a Patient Condition: Stable Patient Language: Maltese Prescriptions: No Action (DME) Ketostix Strip See Rx Instructions .Route Rx Instructions: As directed Baqsimi 3 mg/actuation spray,non-aerosol 3 mg intranasal ONCE Rx Instructions: as a single dose insulin lispro 100 unit/mL solution 60 unit continuous subcutaneous infusion DAILY 90 Days Qty: 60 1RF (DME) Dexcom G7 Sensor Device See Rx Instructions .ROUTE .MEDSUPPLY Qty: 9 2RF Rx Instructions: As directed fosinopril 40 mg tablet 40 mg PO DAILY Qty: 90 3RF (DME) pen needle, diabetic [TRUEplus Pen Needle] 32 gauge x 5/32 needle See Rx Instructions .ROUTE .MEDSUPPLY Qty: 1200 Rx Instructions: As directed Follow-up/Referrals: UNKNOWN,DOCTOR [Non-Staff] - Time of Disposition: 22:56
[2025-04-02 22:26] VITALS: BP 148/69; PULSE 122; RESP 21; O2SAT 98
[2025-04-02 22:30] VITALS: BP 150/67; PULSE 121; RESP 19; O2SAT 97
--- OUTSIDE RECORDS SUMMARY | 2025-04-02 22:35 | XMS_ITS | Encounter Summary ---
Author Organization [facility] [employer] Address [address] [facility] [place] [address] Care Team Providers Care Animal Rehabilitator Name Role Phone Genia Epps MD Unavailable [phone] Genia Epps MD Primary Care Provider [phone] Unknown, Provider Primary Care Provider Unavaila Bartolo Ovalle DO Primary Care Provider Reason for Visit * Reason Onset Date Comments MEDICATION REFILL 12/29/2021 Encounter Details Date Type Department Care Team (Late st Contact Info) Description 12/29/2021 Refill [facility] Pediatrics - Diabetes [facility] [address] [place] [address] Ambar Wong, INSPECTOR PACKER GLASS CONTAINER-AUDIOMETRIST [facility] [place] [address] MEDICATION REFILL Social History Tobacco Use Types [...] on file Legal Sex Male 8:23 AM WHARFMASTER Gender Identity Not on file Sexual Orientation Not on file COVID-19 Exposure Response Date Recorded In the last month, have you been in contact with someone who was confirmed or suspected to have Coronavirus / COVID-19? No / Unsure 12/15/2021 1:21 PM WHARFMASTER documented as of this encounter Functional Status [...] car Lifestyle On track( 022 11:33 AM WHARFMASTER) No Elli Lainez RN documented as of this encounter Visit Diagnoses Diagnosis Type 1 diabetes mellitus with hyperglycemia (HCC)- Primary Type I (juvenile type) diabetes mellitus without mention of complication, not stated as uncontrolled documented in this encounter Care Teams Animal Rehabilitator Relationship Specialty Start Date End Date Genia Epps MD PCP - Pediatrics Pediatrics 11/22/11 10/02/23 Genia Epps MD PCP - General Pediatrics 04/12/20 10/02/23 Unknown, Provider PCP - General 11/07/23 12/05/23 Bartolo Aviles DO PCP - General 12/06/23 documented as of this encounter
--- OUTSIDE RECORDS SUMMARY | 2025-04-02 22:35 | XMS_ITS | Encounter Summary ---
Author Organization [facility] [employer] Address [address] [facility] [place] [address] Care Team Providers Care Electric Truck Driver Name Role Phone Genia Epps MD Unavailable [phone] Genia Epps MD Primary Care Provider Unknown, Provider Primary Care Provider Unavaila Bartolo Ovalle DO Primary Care Provider Reason for Visit * Reason Onset Date Comments General 09/21/2020 Encounter Details Date Type Department Care Team (Late st Contact Info) Description 09/21/2020 Telephone [facility] Pediatrics - Diabetes [address] [id number] [place] [address] Rafa Farias APRN-JAHAIRA [address] [place] [address] General Social History Tobacco Use Types Packs/Day [...] on file Legal Sex Male 8:23 AM CUSTOMER MANAGER Gender Identity Not on file Sexual Orientation Not on file COVID-19 Exposure Response Date Recorded In the last month, have you been in contact with someone who was confirmed or suspected to have Coronavirus / COVID-19? 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 They will call us once that's done so that we can send an invitation to share. Advised contact [employer] for questions about use, she agreed. OMER MANAGER documented in this encounter Plan of Treatment Not on file documented as of this encounter Goals Goal Patient Goal Type Associated Problems Recent Progress Patient-Stated? Author Use safety retraint in car Lifestyle On track( 022 11:33 AM CUSTOMER MANAGER) Elli Emerson, ALYX documented as of this encounter Visit Diagnoses Not on filedocumented in this encounter Additional Health Concerns Infection Onset Date Last Indicated Resolved Time COVID-19 Under Investigation 11/05/2020 11/05/2020 11/05/2020 3:52 PM CUSTOMER MANAGER COVID-19 Under Investigation 11/14/2021 11/14/2021 11/25/2021 4:33 AM CUSTOMER MANAGER documented as of this encounter Care Teams Electric Truck Driver Relationship Specialty Start Date End Date Genia Epps MD PCP - Pediatrics Pediatrics 11/22/11 10/02/23 Genia Epps MD PCP - General Pediatrics 04/12/20 10/02/23 Unknown, Provider PCP - General 11/07/23 12/05/23 Bartolo Aviles DO PCP - General 12/06/23 documented as of this encounter
--- OUTSIDE RECORDS SUMMARY | 2025-04-02 22:35 | XMS_ITS | Encounter Summary ---
Author Organization [facility] [employer] Address [address] [place] [address] Care Team Providers Care Ar Manager Name Role Phone Genia Epps MD Unavailable [phone] Genai Epps MD Primary Care Provider [phone] Unknown, Provider Primary Care Provider Unavaila Bartolo Ovalle DO Primary Care Provider Reason for Visit * Reason Onset Date Comments MEDICATION REFILL 12/27/2021 Encounter Details Date Type Department Care Team (Late st Contact Info) Description 12/27/2021 Refill [facility] Pediatrics - Diabetes [facility] [address] [place] [address] Ambar Wong, CLINICAL EDUCATION COORDINATOR-TOP PRECIPITATOR OPERATOR [facility] [place] [address] MEDICATION REFILL Social History Tobacco Use Types [...] on file Legal Sex Male 8:23 AM MASSEUR/MASSEUSE Gender Identity Not on file Sexual Orientation Not on file COVID-19 Exposure Response Date Recorded In the last month, have you been in contact with someone who was confirmed or suspected to have Coronavirus / COVID-19? No / Unsure 12/15/2021 1:21 PM MASSEUR/MASSEUSE documented as of this encounter Functional Status [...] car Lifestyle On track( 022 11:33 AM MASSEUR/MASSEUSE) No Elli Lainez RN documented as of this encounter Visit Diagnoses Diagnosis Uncontrolled type 1 diabetes mellitus with hyperglycemia (HCC) documented in this encounter Care Teams Ar Manager Relationship Specialty Start Date End Date Genia Epps MD PCP - Pediatrics Pediatrics 2/8/12 12/19/23 Genia Epps MD PCP - General Pediatrics 04/12/20 10/02/23 Unknown, Provider PCP - General 11/07/23 12/05/23 Bartolo Aviles DO PCP - General 12/06/23 documented as of this encounter
--- OUTSIDE RECORDS SUMMARY | 2025-04-02 22:35 | XMS_ITS | Encounter Summary ---
Author Organization [facility] [employer] Address [address] [place] [address] Care Team Providers Care Simonizer Name Role Phone Genia Epps MD Unavailable [phone] Genia Epps MD Primary Care Provider [phone] Unknown, Provider Primary Care Provider Unavaila Bartolo Ovalle DO Primary Care Provider Encounter Details Date Type Department Care Team (Late st Contact Info) Description 05/09/2022 Telephone [facility] Pediatrics - Diabetes [address] [address] Liat Dumont DO [address] [place] [id number] Social History Tobacco Use Types Packs/Day Years [...] on file Legal Sex Male 8:23 AM FORM TAMPING MACHINE OPERATOR Gender Identity Not on file Sexual Orientation [...] 05/09/2022 12:40 PM CDT PA sent to [place] via [facility] for Dexcom transmitter. * Telephone Encounter - Karime Browne RN - 05/09/2022 7:47 AM CDT Received approval for Dexcom sensors through 05/08/23 from [place]. documented in this encounter Plan of Treatment Not on file documented as of this encounter Goals Goal Patient Goal Type Associated Problems Recent Progress Patient-Stated? Author Use safety retraint in car Lifestyle On track( 022 11:33 AM FORM TAMPING MACHINE OPERATOR) No Elli Lainez, RN documented as of this encounter Visit Diagnoses Not on filedocumented in this encounter Care Teams Simonizer Relationship Specialty Start Date End Date Genia Epps MD PCP - Pediatrics Pediatrics 11/22/11 10/02/23 Genia Epps MD PCP - General Pediatrics 04/12/20 10/02/23 Unknown, Provider PCP - General 11/07/23 12/05/23 Bartolo Aviles DO PCP - General 12/06/23 documented as of this encounter
--- OUTSIDE RECORDS SUMMARY | 2025-04-02 22:35 | XMS_ITS | Encounter Summary ---
Author Organization [facility] [employer] Address [address] [place] [address] Care Team Providers Care Production Cell Leader Name Role Phone Genia Epps MD Unavailable [phone] Karen Hook MD Primary Care Provider [phone] Genia Epps MD Primary Care Provider [phone] Unknown, Provider Primary Care Provider Unavaila Bartolo Ovalle DO Primary Care Provider Reason for Visit * Reason Onset Date Comments MEDICATION REFILL 03/27/2013 Encounter Details Date Type Department Care Team (Late st Contact Info) Description 03/27/2013 Refill [facility] Pediatrics - Endocrinology [address] [place] [address] Gideon Bryant MD [address] [place] [id number] MEDICATION REFILL Social History Tobacco Use Types Packs/Day Years Used Date Smoking Tobacco: Never Alcohol Use Standard Drinks/Week Comments No 0 (1 standard drink = 0.6 oz pur e alcohol) Sex and Gender Information Value Date Recorded Sex Assigned at Not on file Legal Sex Male 8:23 AM LEGAL ASSISTANT Gender Identity Not on file Sexual Orientation Not on file documented as of this encounter Plan of Treatment Not on file documented as of this encounter Visit Diagnoses Not on filedocumented in this encounter Additional Health Concerns Infection Onset Date Last Indicated Resolved Time COVID-19 Under Investigation 11/05/2020 11/05/2020 11/05/2020 3:52 PM LEGAL ASSISTANT COVID-19 Under Investigation 11/14/2021 11/14/2021 11/25/2021 4:33 AM LEGAL ASSISTANT documented as of this encounter Care Teams Production Cell Leader Relationship Specialty Start Date End Date Genia Epps MD PCP - Pediatrics Pediatrics 11/22/11 10/02/23 Karen Hook MD PCP - General Pediatrics 09/21/12 01/26/14 Genia Epps MD PCP - General Pediatrics 04/12/20 10/02/23 Unknown, Provider PCP - General 11/07/23 12/05/23 Bartolo Aviles DO PCP - General 12/06/23 documented as of this encounter
--- OUTSIDE RECORDS SUMMARY | 2025-04-02 22:35 | XMS_ITS | Clinical Summary ---
Author Organization [facility] Address [address] [place] [address] Care Team Providers Care Personal Care Aid Name Role Phone Unavailable Primary Care Provider Unavailabl e Immunizations Immunization Administration Dates Next Due Covid-19, Mrna, Lnp-s, Pf, 30 Mcg/0.3 Ml Dose (P fizer) 10/19/2021 Social History Tobacco Use Types Packs/Day Years Used Date Smoking Tobacco: Never Assessed Sex and Gender Information Value Date Recorded Sex Assigned at Not on file Legal Sex Male 9:02 PM MAC ARTIST Gender Identity Not on file Sexual Orientation [...]
--- OUTSIDE RECORDS SUMMARY | 2025-04-02 22:35 | XMS_ITS | Encounter Summary ---
Author Organization [facility] Address [address] [place] [address] Care Team Providers Care Cooker Cleaner Name Role Phone Genia Epps MD Unavailable [phone] Genia Epps MD Primary Care Provider [phone] Unknown, Provider Primary Care Provider Unavaila Bartolo Ovalle DO Primary Care Provider Reason for Visit * Reason Onset Date Comments MEDICATION REFILL 10/10/2022 Encounter Details Date Type Department Care Team (Late st Contact Info) Description 10/10/[address] [facility] Pediatrics - Diabetes [facility] [address] [place] [address] Ambar Wong, PLATING TANK OPERATOR-TRAIL CONSTRUCTION WORKER [facility] [place] [address] MEDICATION REFILL Social History Tobacco Use Types [...] on file Legal Sex Male 8:[address] Gender Identity Not on file Sexual Orientation Not on file COVID-19 Exposure Response Date Recorded In the last 10 days, have yo u been in contact with someone who was confirmed or suspected to have Coronavirus/COVID-19? No / Unsure 10/10/2022 9:[address] JUDGE documented as of this encounter Functional Status [...] Assessment Author No 04/02/2021 4:33 AM Michael Huagn RN * Does person have difficulty dressing/bathing? [...] car Lifestyle On track( 022 11:[address] JUDGE) Elli Emerson RN documented as of this encounter Visit Diagnoses Diagnosis Uncontrolled type 1 diabetes mellitus with hyperglycemia (HCC) documented in this encounter Care Teams Cooker Cleaner Relationship Specialty Start Date End Date Genia Epps MD PCP - Pediatrics Pediatrics 11/22/11 10/02/23 Genia Epps MD PCP - General Pediatrics 04/12/20 10/02/23 Unknown, Provider PCP - General 11/07/23 12/05/23 Bartolo Aviles DO PCP - General 12/06/23 documented as of this encounter
--- OUTSIDE RECORDS SUMMARY | 2025-04-02 22:35 | XMS_ITS | Encounter Summary ---
Author Organization [facility] Address [address] [facility] [place] [address] Care Team Providers Care Crane Hoist Or Lift Operator Name Role Phone Genia Epps MD Unavailable [phone] Genia Epps MD Primary Care Provider [phone] Unknown, Provider Primary Care Provider Unavaila Bartolo Ovalle DO Primary Care Provider Encounter Details Date Type Department Care Team (Late st Contact Info) Description 01/14/2018 Telephone [facility] Pediatrics - Endocrinology [address] [place] [address] Rafa Farias APRN-MACHINE PRESERVATIVE FILLER [address] [place] [id number] Social History Tobacco Use Types Packs/Day Years Used Date Smoking Tobacco: Passive Smo ke Exposure - Never Smoker Smokeless Tobacco: Never Alcohol Use Standard Drinks/Week Comments No 0 (1 standard drink = 0.6 oz pur e alcohol) Sex and Gender Information Value Date Recorded Sex Assigned at Not on file Legal Sex Male 8:23 AM DIE SETTER Gender Identity Not on file Sexual Orientation Not on file documented as of this encounter Miscellaneous Notes * Telephone Encounter - Peewee Rosas RN - 01/14/2018 11:06 AM CDT Received Fax from [facility] for PA approval for Basaglar Kwikpen from 01/12/18- 10/14/18. Ticket # [id number]. * Telephone Encounter - Peewee Rosas RN - 01/14/2018 9:16 AM CDT PA request faxed to [place] for Basaglar 100u/ml Kwikpen. documented in this encounter Plan of Treatment Not on file documented as of this encounter Goals Goal Patient Goal Type Associated Problems Recent Progress Patient-Stated? Author Use safety retraint in car Lifestyle On track( 022 11:33 AM DIE SETTER) No Elli Lainez RN documented as of this encounter Visit Diagnoses Not on filedocumented in this encounter Additional Health Concerns Infection Onset Date Last Indicated Resolved Time COVID-19 Under Investigation 11/05/2020 11/05/2020 11/05/2020 3:52 PM DIE SETTER COVID-19 Under Investigation 11/14/2021 11/14/2021 11/25/2021 4:33 AM DIE SETTER documented as of this encounter Care Teams Crane Hoist Or Lift Operator Relationship Specialty Start Date End Date Genia Epps MD PCP - Pediatrics Pediatrics 11/22/11 10/02/23 Genia Epps MD PCP - General Pediatrics 04/12/20 10/02/23 Unknown, Provider PCP - General 11/07/23 12/05/23 Bartolo Aviles DO PCP - General 12/06/23 documented as of this encounter
--- OUTSIDE RECORDS SUMMARY | 2025-04-02 22:35 | XMS_ITS | Encounter Summary ---
Author Organization [facility] Address [address] [facility] [place] [address] Care Team Providers Care Licensed Practical Nurse Instructor Name Role Phone Genia Epps MD Unavailable [phone] Genia Epps MD Primary Care Provider [phone] Unknown, Provider Primary Care Provider Unavaila Bartolo Ovalle DO Primary Care Provider Reason for Visit * Reason Onset Date Comments MEDICATION REFILL 08/03/2015 Encounter Details Date Type Department Care Team (Late st Contact Info) Description 08/03/2015 Refill [facility] Pediatrics - Endocrinology [address] [place] [address] Rafa Farias APRN-COMMUNITY ARTS CENTRE MANAGER [address] [place] [address] MEDICATION REFILL Social History Tobacco Use Types Packs/Day Years Used Date Smoking Tobacco: Never Alcohol Use Standard Drinks/Week Comments No 0 (1 standard drink = 0.6 oz pur e alcohol) Sex and Gender Information Value Date Recorded Sex Assigned at Not on file Legal Sex Male 8:23 AM SIDEROGRAPHER Gender Identity Not on file Sexual Orientation Not on file documented as of this encounter Plan of Treatment Not on file documented as of this encounter Goals Goal Patient Goal Type Associated Problems Recent Progress Patient-Stated? Author Use safety retraint in car Lifestyle On track( 022 11:33 AM SIDEROGRAPHER) No Elli Lainez RN documented as of this encounter Visit Diagnoses Not on filedocumented in this encounter Additional Health Concerns Infection Onset Date Last Indicated Resolved Time COVID-19 Under Investigation 11/05/2020 11/05/2020 11/05/2020 3:52 PM SIDEROGRAPHER COVID-19 Under Investigation 11/14/2021 11/14/2021 11/25/2021 4:33 AM SIDEROGRAPHER documented as of this encounter Care Teams Licensed Practical Nurse Instructor Relationship Specialty Start Date End Date Genia Epps MD PCP - Pediatrics Pediatrics 11/22/11 10/02/23 Genia Epps MD PCP - General Pediatrics 04/12/20 10/02/23 Unknown, Provider PCP - General 11/07/23 12/05/23 Bartolo Aviles DO PCP - General 12/06/23 documented as of this encounter
--- OUTSIDE RECORDS SUMMARY | 2025-04-02 22:35 | XMS_ITS | Encounter Summary ---
Author Organization [facility] Address [address] [facility] [place] [address] Care Team Providers Care Sustainment Logistics Analyst Name Role Phone Genia Epps MD Unavailable [phone] Karen Hook MD Primary Care Provider [phone] Genia Epps MD Primary Care Provider [phone] Unknown, Provider Primary Care Provider Bartolo Ortega DO Primary Care Provider Encounter Details Date Type Department Care Team (Late st Contact Info) Description 03/08/2013 [facility] Outpatient Visit [facility] [address] [place] [address] Unknown, Provider Social History Tobacco Use Types Packs/Day Years Used Date Smoking Tobacco: Never Alcohol Use Standard Drinks/Week Comments No 0 (1 standard drink = 0.6 oz pur e alcohol) Sex and Gender Information Value Date Recorded Sex Assigned at Not on file Legal Sex Male 8:23 AM AIR PRESS OPERATOR Gender Identity Not on file Sexual Orientation Not on file documented as of this encounter Plan of Treatment Not on file documented as of this encounter Visit Diagnoses Not on filedocumented in this encounter Additional Health Concerns Infection Onset Date Last Indicated Resolved Time COVID-19 Under Investigation 11/05/2020 11/05/2020 11/05/2020 3:52 PM AIR PRESS OPERATOR COVID-19 Under Investigation 11/14/2021 11/14/2021 11/25/2021 4:33 AM AIR PRESS OPERATOR documented as of this encounter Care Teams Sustainment Logistics Analyst Relationship Specialty Start Date End Date Genia Epps MD PCP - Pediatrics Pediatrics 11/22/11 10/02/23 Karen Hook MD PCP - General Pediatrics 09/21/12 01/26/14 Genia Epps MD PCP - General Pediatrics 04/12/20 10/02/23 Unknown, Provider PCP - General 11/07/23 12/05/23 Bartolo Aviles DO PCP - General 12/06/23 documented as of this encounter
--- OUTSIDE RECORDS SUMMARY | 2025-04-02 22:35 | XMS_ITS | Encounter Summary ---
Author Organization [facility] [employer] Address [address] [facility] [place] [address] Care Team Providers Care Integrity Engineer Name Role Phone Genia Epps MD Unavailable [phone] Genia Epps MD Primary Care Provider [phone] Unknown, Provider Primary Care Provider Unavaila Bartolo Ovalle DO Primary Care Provider Reason for Visit * Reason Onset Date Comments MEDICATION REFILL 12/30/2021 Encounter Details Date Type Department Care Team (Late st Contact Info) Description 12/30/2021 Refill [facility] Pediatrics - Diabetes [facility] [address] [place] [address] Ambar Wong, SEAT BUILDER-SEED CUTTER [facility] [place] [address] MEDICATION REFILL Social History Tobacco Use Types [...] on file Legal Sex Male 8:23 AM WAREHOUSE SHIFT SUPERVISOR Gender Identity Not on file Sexual Orientation Not on file COVID-19 Exposure Response Date Recorded In the last month, have you been in contact with someone who was confirmed or suspected to have Coronavirus / COVID-19? No / Unsure 12/15/2021 1:21 PM WAREHOUSE SHIFT SUPERVISOR documented as of this encounter Functional Status [...] car Lifestyle On track( 022 11:33 AM WAREHOUSE SHIFT SUPERVISOR) No Elli Lainez RN documented as of this encounter Visit Diagnoses Diagnosis Type 1 diabetes mellitus without complication, with long-term current use of insulin (HCC)- Primary documented in this encounter Care Teams Integrity Engineer Relationship Specialty Start Date End Date Genia Epps MD PCP - Pediatrics Pediatrics 11/22/11 10/02/23 Genia Epps MD PCP - General Pediatrics 04/12/20 10/02/23 Unknown, Provider PCP - General 11/07/23 12/05/23 Bartolo Aviles DO PCP - General 12/06/23 documented as of this encounter
--- OUTSIDE RECORDS SUMMARY | 2025-04-02 22:35 | XMS_ITS | Encounter Summary ---
Author Organization [facility] Address [address] [facility] [place] [address] Care Team Providers Care Pain Management Physician Name Role Phone Genia Epps MD Unavailable [phone] Genia Epps MD Primary Care Provider [phone] Unknown, Provider Primary Care Provider Unavaila Bartolo Ovalle DO Primary Care Provider Reason for Visit * Reason Onset Date Comments MEDICATION REFILL 09/21/2017 Encounter Details Date Type Department Care Team (Late st Contact Info) Description 09/21/2017 Refill [facility] Pediatrics - Endocrinology [address] [place] [address] Rafa Farias APRN-SCHEDULE ANALYST [address] [place] [address] MEDICATION REFILL Social History Tobacco Use Types Packs/Day Years Used Date Smoking Tobacco: Passive Smo ke Exposure - Never Smoker Smokeless Tobacco: Never Alcohol Use Standard Drinks/Week Comments No 0 (1 standard drink = 0.6 oz pur e alcohol) Sex and Gender Information Value Date Recorded Sex Assigned at Not on file Legal Sex Male 8:23 AM BUSINESS EDUCATION PROFESSOR Gender Identity Not on file Sexual Orientation Not on file documented as of this encounter Plan of Treatment Not on file documented as of this encounter Goals Goal Patient Goal Type Associated Problems Recent Progress Patient-Stated? Author Use safety retraint in car Lifestyle On track( 022 11:33 AM BUSINESS EDUCATION PROFESSOR) No Elli Lainez RN documented as of this encounter Visit Diagnoses Diagnosis Type 1 diabetes mellitus without complication, with long-term current use of insulin (HCC) documented in this encounter Additional Health Concerns Infection Onset Date Last Indicated Resolved Time COVID-19 Under Investigation 11/05/2020 11/05/2020 11/05/2020 3:52 PM BUSINESS EDUCATION PROFESSOR COVID-19 Under Investigation 11/14/2021 11/14/2021 11/25/2021 4:33 AM BUSINESS EDUCATION PROFESSOR documented as of this encounter Care Teams Pain Management Physician Relationship Specialty Start Date End Date Genia Epps MD PCP - Pediatrics Pediatrics 11/22/11 10/02/23 Genia Epps MD PCP - General Pediatrics 04/12/20 10/02/23 Unknown, Provider PCP - General 11/07/23 12/05/23 Bartolo Aviles DO PCP - General 12/06/23 documented as of this encounter
--- OUTSIDE RECORDS SUMMARY | 2025-04-02 22:35 | XMS_ITS | Encounter Summary ---
Author Organization [facility] Address [address] [place] [address] Care Team Providers Care Instrument And Control Service Person Name Role Phone Genia Epps MD Unavailable [phone] Genia Epps MD Primary Care Provider [phone] Unknown, Provider Primary Care Provider Unavaila Bartolo Ovalle DO Primary Care Provider Reason for Visit * Reason Onset Date Comments MEDICATION REFILL 01/14/2018 Encounter Details Date Type Department Care Team (Late st Contact Info) Description 01/14/2018 Refill [facility] Pediatrics - Endocrinology [address] [place] [address] Rafa Farias APRN-FURNITURE UPHOLSTERER APPRENTICE [address] [place] [address] MEDICATION REFILL Social History Tobacco Use Types Packs/Day Years Used Date Smoking Tobacco: Passive Smo ke Exposure - Never Smoker Smokeless Tobacco: Never Alcohol Use Standard Drinks/Week Comments No 0 (1 standard drink = 0.6 oz pur e alcohol) Sex and Gender Information Value Date Recorded Sex Assigned at Not on file Legal Sex Male 8:23 AM INSTRUCTOR BRIDGE Gender Identity Not on file Sexual Orientation Not on file documented as of this encounter Plan of Treatment Not on file documented as of this encounter Goals Goal Patient Goal Type Associated Problems Recent Progress Patient-Stated? Author Use safety retraint in car Lifestyle On track( 022 11:33 AM INSTRUCTOR BRIDGE) No Elli Lainez RN documented as of this encounter Visit Diagnoses Diagnosis Type 1 diabetes mellitus with complication (HCC) Type I (juvenile type) diabetes mellitus with unspecified complication, not stated as uncontrolled documented in this encounter Additional Health Concerns Infection Onset Date Last Indicated Resolved Time COVID-19 Under Investigation 11/05/2020 11/05/2020 11/05/2020 3:52 PM INSTRUCTOR BRIDGE COVID-19 Under Investigation 11/14/2021 11/14/2021 11/25/2021 4:33 AM INSTRUCTOR BRIDGE documented as of this encounter Care Teams Instrument And Control Service Person Relationship Specialty Start Date End Date Genia Epps MD PCP - Pediatrics Pediatrics 11/22/11 10/02/23 Genia Epps MD PCP - General Pediatrics 04/12/20 10/02/23 Unknown, Provider PCP - General 11/07/23 12/05/23 Bartolo Aviles DO PCP - General 12/06/23 documented as of this encounter
--- OUTSIDE RECORDS SUMMARY | 2025-04-02 22:35 | XMS_ITS | Clinical Summary ---
Author Organization [facility] [employer] Address [address] [place] [address] Care Team Providers Care Fire Boss Name Role Phone Bartolo Aviles DO Primary Care Provider Source Comments [facility] [employer],non-owned Affiliates and Associated Physician Practices is amultiple site organization consisting of ambulatory clinics and hospital sitesin [place], [place], [place] and [place]. This disclosure is being madepursuant to the Care Everywhere program and may not contain all information available regarding this patient. Last updated 18.[employer] Allergies No known active allergies Medications * Be aware that medications may not be up to date on this document. Alwaysverify current medications with the patient. Blood Glucose Monitoring Suppl (SEEC ABTOUCH VERIO) W/DEVICE KIT Use 1 Each as [...] strip 12/28/19 22 Active Continuous Blood Gluc Menagerie Caretaker (DEXCOM G6 ORE SMELTER) DEVIIndications:T ype 1 diabetes mellitus with hyperglycemia (HCC) Use 1 Each as directed 1 Each 12/30/19 22 Active Insulin Pen Needle (TRUEplus Pen [place]) 32G X 4 MM MISCIndications:T ype 1 diabetes mellitus without complication, with long-term current use of insulin ([facility]) Use 1 Each as directed Use to administer insulin 4-6 times per day 200 Each 05/09/20 23 Active Continuous Blood Gluc Sensor (Dexcom G6 Sensor) MISCIndications:T ype 1 diabetes mellitus without complication, with long-term current use of insulin ([facility]) Use 1 Each every 10 days 3 Each 06/26/20 23 Active Continuous Blood Gluc Transmit (Dexcom G6 Transmitter) MISCIndications:T ype 1 diabetes mellitus without complication, with long-term current use of insulin ([facility]) Use 1 Each Every 90 days [...] complication, with long-term current use of insulin ([facility]) Test urine when blood sugar is 250 or higher or when [place] is sick. 100 strip 11 03/11/20 24 Active Glucagon (Baqsimi Two Pack) 3 MG/DOSE POWDIndications:T ype 1 diabetes mellitus with hyperglycemia (HCC) [place] 1 Each into the nose as directed [...] & Plan (03/07/2021 10:05 AM CDT): 1) [email or web address] 2) in the meantime you need to take correction doses every 2 hours until blood sugar is in range 3) plan on pump start over the summer 4) return in 3-4 months Assessment & Plan (12/03/2020 2:10 PM CONTRACT PREPARER): 1) take correction dose every 2 hours when glucose is not in range 2) re-evaluate carb counting 3) call in one week to review sensor 4) return in 3 months for Anita Assessment & Plan (08/31/2020 4:12 PM CONTRACT PREPARER): 1) continue current insulin doses 2) I [...] anita Assessment & Plan (10/17/2019 8:05 AM CONTRACT PREPARER): 1) change correction dose to 2 per [...] anita Assessment & Plan (09/20/2018 8:57 AM CONTRACT PREPARER): 1) must check blood sugar at least [...] meal snacking without taking insulin. Per the [place] Diabetes Association practice guidelines [Diabetes Care 2015 [...] office visit) Follow-up by telephone (office number: [phone], option #4 or fax number: [phone]) in 2 weeks to review [place]'s interval home blood glucose records and make any additional insulin dose adjustments. Return appointment in 3 months Assessment & Plan (12/04/2016 8:48 AM CONTRACT PREPARER): Lantus 20 units at 9 p.m. Novolog/humalo [...] meal snacking without taking insulin. Per the [place] Diabetes Association practice guidelines [Diabetes Care 2015 [...] office visit) Follow-up by telephone (office number: [phone], option #4 or fax number: [phone]) in 2 weeks to review [place]'s interval [...] meal snacking without taking insulin. Per the [place] Diabetes Association practice guidelines [Diabetes Care 2015 [...] office visit) Follow-up by telephone (office number: [phone], option #4 or fax number: [phone]) in 2 weeks to review [place]'s interval [...] meal snacking without taking insulin. Per the [place] Diabetes Association practice guidelines [Diabetes Care 2015 [...] office visit) Follow-up by telephone (office number: [phone], option #4 or fax number: [phone]) in 2 weeks to review Ha[place]'s interval [...] meal snacking without taking insulin. Per the [place] Diabetes Association practice guidelines [Diabetes Care 2015 [...] office visit) Follow-up by telephone (office number: [phone], option #4 or fax number: [phone]) in 2 weeks to review [place]'s interval home blood glucose records and make any additional insulin dose adjustments. Return appointment in 3 months Assessment & Plan (11/23/2015 2:16 PM CONTRACT PREPARER): Lantus 17 units at 9 p.m. Novolog/humalo [...] meal snacking without taking insulin. Per the [place] Diabetes Association practice guidelines [Diabetes Care 2015 [...] office visit) Follow-up by telephone (office number: [phone], option #4 or fax number: [phone]) in 2 weeks to review [place]'s interval home blood glucose records and make any additional insulin dose adjustments. Return appointment in 3 months Assessment & Plan (08/27/2015 12:49 PM CONTRACT PREPARER): 1) decrease dinner to 1:7 2) call [...] in blood sugars in one week to [phone] option 4 6) return in 3 months [...] in blood sugars in 1 week to [phone] option 4 5) return in 3 months for anita or Dr. Bryant 6) decrease lunch to 1:10 Assessment & Plan (11/10/2014 2:12 PM CONTRACT PREPARER): Lantus 11 units at 10 p.m. Novolog/humalo [...] office visit) Follow-up by telephone (office number: [phone], option #4 or fax number: [phone]) in 2 weeks to review Haider's interval [...] office visit) Follow-up by telephone (office number: [phone], option #4 or fax number: [phone]) in 1 weeks to review Haider's interval [...] office visit) Follow-up by telephone (office number: [phone], option #4 or fax number: [phone]) in 2 weeks to review [facility]'s interval home blood glucose records and make [...] times. 8. Follow-up by telephone (office number: [phone], option #4 or fax number: [phone]) in 1-2 weeks to review Haider's interval home blood glucose records and make any additional insulin dose adjustments. 9. Return appointment in 3 months Assessment & Plan (10/28/2013 12:06 PM CONTRACT PREPARER): Lantus 8.5 units at bedtime Rotate insulin [...] all times. Follow-up by telephone (office number: [phone], option #4 or fax number: [phone]) in 1-2 weeks to review Haider's interval [...] all times. Follow-up by telephone (office number: [phone], option #4 or fax number: [phone]) in 1-2 weeks to review Haider's interval [...] on file Legal Sex Male 8:23 AM CONTRACT PREPARER Gender Identity Not on file Sexual Orientation Not on file Last Filed Vital Signs Vital Sign Reading Time Taken Comments Blood Pressure 130/78 03/11/2024 9:54 AM CDT Pulse 74 04/14/2021 10:31 AM CDT Temperature 37.1 C (98.8 F) 10/01/2023 3:53 PM CONTRACT PREPARER Respiratory Rate 22 04/02/2021 8:13 PM CDT [...] car Lifestyle On track( 022 11:33 AM CONTRACT PREPARER) Elli Emerson, animal care specialist Procedure Name Priority Date/Time Associated Diagnosis Comments HEMOGLOBIN A1C - POCT INTERFACED Routine 03/11/2024 9:56 AM CDT BASIC METABOLIC PANEL (CALCIUM TOTAL) Routine 11/13/2023 11:39 AM CONTRACT PREPARER 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 Essential hypertension MICROALB/CREAT RATIO URINE RANDOM PANEL Routine 12/22/2022 11:36 AM CONTRACT PREPARER Type 1 diabetes mellitus with hyperglycemia from Last 3 Months or Most Recently Relevant to Health Maintenance Results * (ABNORMAL) HEMOGLOBIN A1C - POCT INTERFACED (03/11/2024 9:56 AM CDT) Hemoglobin A1C POCT 9.7(H) <5.7 % 03/11/2024 10:04 AM T [facility] Estimated Average Glucose 232 mg/dL 03/11/2024 10:04 AM T [facility] Blood BLOOD SPECIMEN / Unknown 03/11/2024 9:56 AM CDT 03/11/2024 10:04 AM CDT Narrative [facility] - 03/11/2024 10:04 AM CDT [...] Standardization Program (NGSP) certified method. Ambar Wong TECHNICAL SERVICE SPECIALIST-SUSTAINABILITY DIRECTOR LAB - POINT OF CARE ORD ERABLES Final Result [facility] [address] [place] [id number] * (ABNORMAL) BASIC METABOLIC PANEL (CALCIUM TOTAL) (11/13/2023 11:39 AM CONTRACT PREPARER) BUN 14 7 - 26 mg/dL 11/13/2023 1:00 PM [facility] Creatinine 0.72 0.71 - 1.16 mg/dL 11/13/2023 1:00 PM [facility] Sodium 141 136 - 145 mmol/L 11/13/2023 1:00 PM [facility] Potassium 4.0 3.5 - 4.5 mmol/L 11/13/2023 1:00 PM [facility] Chloride 104 98 - 107 mmol/L 11/13/2023 1:00 PM [facility] CO2 28 22 - 29 mmol/L 11/13/2023 1:00 PM [facility] Glucose 43(LL) 70 - 115 mg/dL 11/13/2023 1:00 PM [facility] Calcium 9.7 8.4 - 10.2 mg/dL 11/13/2023 1:00 PM [facility] Anion Gap 9 6 - 16 11/13/2023 1:00 PM [facility] BUN/Creatinine Ratio 19 7 - 23 11/13/2023 1:00 PM [facility] Osmolality Calculated 289 275 - 295 mOsm/kg 11/13/2023 1:00 PM [facility] eGFR by CKD-EPI >90 >=90 mL/min/1.7 3 m2 11/13/2023 1:00 PM [facility] Blood BLOOD SPECIMEN / Unknown Lab Venipuncture / Unknown 11/13/2023 11:39 AM [facility] 11/13/2023 11:49 AM [facility] us Liat Dumont DO LAB - CHEMISTRY ORDERABLES Final Result [address] [address], [facility] [phone] * MICROALB/CREAT RATIO URINE RANDOM PANEL (12/22/2022 11:36 AM [facility]) Albumin Random Urine <5.0 Not Established ug/mL 12/22/2022 12:31 PM [facility] Creatinine Urine 28 Not Established mg/dL 12/22/2022 12:31 PM [facility] Urine Albumin/Creati nine Ratio <18 <30 mg/g 12/22/2022 12:31 PM [facility] Albumin/Creati nine Ratio Urine See Comment <30 mg/g 12/22/2022 12:31 PM [facility] Comment:Unable to calculate the Urine Albumin/Creatinine Ratio due to one or more analyte concentration(s) being outside the measuring limits of the instrument. Urine URINE SPECIMEN OBTAINED BY CLEAN CATCH PROCEDURE / Unknown Collection / Unknown 12/22/2022 11:36 AM CONTRACT PREPARER 12/22/2022 11:43 AM CONTRACT PREPARER Ambar Wong TECHNICAL SERVICE SPECIALIST-SUSTAINABILITY DIRECTOR LAB - URINE CHEMISTRY O RDERABLES Final Result [facility] [address] [place] [address], [facility] [phone] from Last 3 Months or Most Recently Relevant to Health Maintenance Insurance [facility] Advance Directives * Full Code (Latest Code Status on File) Date Activated Date Inactivated Comments 04/02/2021 4:22 AM 04/02/2021 11:05 PM Care Teams Fire Boss Relationship Specialty Start Date End Date Bartolo Aviles DO PCP - General 12/06/23
--- OUTSIDE RECORDS SUMMARY | 2025-04-02 22:35 | XMS_ITS | Encounter Summary ---
Author Organization [facility] [employer] Address [address] [facility] [facility] [place] [address] Care Team Providers Care Rubber Belt Splicer Name Role Phone Genia Epps MD Unavailable [phone] Genia Epps MD Primary Care Provider [phone] Unknown, Provider Primary Care Provider Unavaila Bartolo Ovalle DO Primary Care Provider Reason for Visit * Reason Onset Date Comments Refill Request 06/21/2018 Fosinopril Encounter Details Date Type Department Care Team (Late st Contact Info) Description 06/21/2018 Telephone [facility] Pediatrics - Endocrinology [facility] [place] [address] Jeannie Martinez Refill Request (Fosinopril) Social History Tobacco Use Types Packs/Day Years Used Date Smoking Tobacco: Passive Smo ke Exposure - Never Smoker Smokeless Tobacco: Never Alcohol Use Standard Drinks/Week Comments No 0 (1 standard drink = 0.6 oz pur e alcohol) Sex and Gender Information Value Date Recorded Sex Assigned at Not on file Legal Sex Male 8:23 AM RIVET DRIVER Gender Identity Not on file Sexual Orientation Not on file documented as of this encounter Plan of Treatment Not on file documented as of this encounter Goals Goal Patient Goal Type Associated Problems Recent Progress Patient-Stated? Author Use safety retraint in car Lifestyle On track( 022 11:33 AM RIVET DRIVER) No Elli Lainez RN documented as of this encounter Visit Diagnoses Not on filedocumented in this encounter Additional Health Concerns Infection Onset Date Last Indicated Resolved Time COVID-19 Under Investigation 11/05/2020 11/05/2020 11/05/2020 3:52 PM RIVET DRIVER COVID-19 Under Investigation 11/14/2021 11/14/2021 11/25/2021 4:33 AM RIVET DRIVER documented as of this encounter Care Teams Rubber Belt Splicer Relationship Specialty Start Date End Date Genia Epps MD PCP - Pediatrics Pediatrics 11/22/11 10/02/23 Genia Epps MD PCP - General Pediatrics 04/12/20 10/02/23 Unknown, Provider PCP - General 11/07/23 12/05/23 Bartolo Aviles DO PCP - General 12/06/23 documented as of this encounter
--- OUTSIDE RECORDS SUMMARY | 2025-04-02 22:36 | XMS_ITS | Encounter Summary ---
Author Organization [facility] [employer] Address [address] [facility] [place] [address] Care Team Providers Care Coper Hand Name Role Phone Genia Epps MD Unavailable [phone] Genia Epps MD Primary Care Provider [phone] Unknown, Provider Primary Care Provider Unavaila Bartolo Ovalle DO Primary Care Provider Encounter Details Date Type Department Care Team (Late st Contact Info) Description 09/06/2021 Telephone [facility] Pediatrics - Diabetes [address] [address] Liat Dumont DO [address] [place] [phone] Social History Tobacco Use Types Packs/Day Years [...] file Legal Sex Male 8:23 AM BUSINESS MGR Gender Identity Not on file Sexual Orientation [...] Karime Browne RN - 09/06/2021 11:54 AM BUSINESS MGR Received approval for [employer] sensors through 10/14/21. Pharmacy notified. NESS MGR documented in this encounter Plan of Treatment Not on file documented as of this encounter Goals Goal Patient Goal Type Associated Problems Recent Progress Patient-Stated? Author Use safety retraint in car Lifestyle On track( 022 11:33 AM BUSINESS MGR) Elli Emerson RN documented as of this encounter Visit Diagnoses Not on filedocumented in this encounter Additional Health Concerns Infection Onset Date Last Indicated Resolved Time COVID-19 Under Investigation 11/14/2021 11/14/2021 11/25/2021 4:33 AM BUSINESS MGR documented as of this encounter Care Teams Coper Hand Relationship Specialty Start Date End Date Genia Epps MD PCP - Pediatrics Pediatrics 11/22/11 10/02/23 Genia Epps MD PCP - General Pediatrics 04/12/20 10/02/23 Unknown, Provider PCP - General 11/07/23 12/05/23 Bartolo Aviles DO PCP - General 12/06/23 documented as of this encounter
--- OUTSIDE RECORDS SUMMARY | 2025-04-02 22:36 | XMS_ITS | Encounter Summary ---
Author Organization [facility] [employer] Address [address] [place] [address] Care Team Providers Care Hearing Aid Technician Name Role Phone Genia Epps MD Unavailable [phone] Genia Epps MD Primary Care Provider [phone] Karen Hook MD Primary Care Provider [phone] Genia Epps MD Primary Care Provider [phone] Unknown, Provider Primary Care Provider Unavaila Bartolo Ovalle DO Primary Care Provider Reason for Visit * Reason Onset Date Comments MEDICATION REFILL 04/21/2012 Encounter Details Date Type Department Care Team (Late st Contact Info) Description 04/21/2012 Refill [facility] - Diabetes Mgmt [address] [place] [address] Gideon Bryant MD [address] [place] [address] [phone] MEDICATION REFILL Social History Tobacco Use Types Packs/Day Years Used Date Smoking Tobacco: Never Assessed Sex and Gender Information Value Date Recorded Sex Assigned at Not on file Legal Sex Male 8:23 AM FOOD CONCESSION MANAGER Gender Identity Not on file Sexual Orientation Not on file documented as of this encounter Plan of Treatment Not on file documented as of this encounter Visit Diagnoses Not on filedocumented in this encounter Additional Health Concerns Infection Onset Date Last Indicated Resolved Time COVID-19 Under Investigation 11/05/2020 11/05/2020 11/05/2020 3:52 PM FOOD CONCESSION MANAGER COVID-19 Under Investigation 11/14/2021 11/14/2021 11/25/2021 4:33 AM FOOD CONCESSION MANAGER documented as of this encounter Care Teams Hearing Aid Technician Relationship Specialty Start Date End Date [...]
--- OUTSIDE RECORDS SUMMARY | 2025-04-02 22:36 | XMS_ITS | Encounter Summary ---
Author Organization [facility] [employer] Address [address] [place] [address] Care Team Providers Care Campus Monitor Name Role Phone Genia Epps MD Unavailable [phone] Karen Hook MD Primary Care Provider [phone] Genia Epps MD Primary Care Provider [phone] Unknown, Provider Primary Care Provider Unavaila Bartolo Ovalle DO Primary Care Provider Reason for Visit * Reason Onset Date Comments Letter for School or Work 07/16/2013 Please send changes made to diabetes plan to School RNReina Rios [phone] Encounter Details Date Type Department Care Team (Late st Contact Info) Description 07/16/[address] [facility] Pediatrics - Diabetes Mgmt [address] [place] [phone] Gideon Bryant MD [address] [place] [address] [phone] Letter for School or Work (Please send changes made to diabetes plan to School RN- Milagros Rios [phone]) Social History Tobacco Use Types Packs/Day Years Used Date Smoking Tobacco: Never Alcohol Use Standard Drinks/Week Comments No 0 (1 standard drink = 0.6 oz pur e alcohol) Sex and Gender Information Value Date Recorded Sex Assigned at Not on file Legal Sex Male 8:23 AM OIL AGENT Gender Identity Not on file Sexual Orientation Not on file documented as of this encounter Plan of Treatment Not on file documented as of this encounter Visit Diagnoses Not on filedocumented in this encounter Additional Health Concerns Infection Onset Date Last Indicated Resolved Time COVID-19 Under Investigation 11/05/2020 11/05/2020 11/05/2020 3:52 PM OIL AGENT COVID-19 Under Investigation 11/14/2021 11/14/2021 11/25/2021 4:33 AM OIL AGENT documented as of this encounter Care Teams Campus Monitor Relationship Specialty Start Date End Date Genia Epps MD PCP - Pediatrics Pediatrics 11/22/11 10/02/23 Karen Hook MD PCP - General Pediatrics 09/21/12 01/26/14 Genia Epps MD PCP - General Pediatrics 04/12/20 10/02/23 Unknown, Provider PCP - General 11/07/23 12/05/23 Bartolo Aviles DO PCP - General 12/06/23 documented as of this encounter
--- OUTSIDE RECORDS SUMMARY | 2025-04-02 22:36 | XMS_ITS | Encounter Summary ---
Author Organization [facility] Address [address] [place] [address] Care Team Providers Care Automation Qa Tester Name Role Phone Genia Epps MD Unavailable [phone] Genia Epps MD Primary Care Provider [phone] Unknown, Provider Primary Care Provider Unavaila Bartolo Ovalle DO Primary Care Provider Encounter Details Date Type Department Care Team (Late st Contact Info) Description 04/28/2020 Telephone [facility] - Diabetes [address] [address] Genia Pires, RN Social History Tobacco Use Types Packs/Day Years Used Date Smoking Tobacco: Passive Smo ke Exposure - Never Smoker Smokeless Tobacco: Never Alcohol Use Standard Drinks/Week Comments No 0 (1 standard drink = 0.6 oz pur e alcohol) Sex and Gender Information Value Date Recorded Sex Assigned at Not on file Legal Sex Male 8:23 AM WEED SPRAYER Gender Identity Not on file Sexual Orientation [...] car Lifestyle On track( 022 11:33 AM WEED SPRAYER) Elli Emerson RN documented as of this encounter Visit Diagnoses Not on filedocumented in this encounter Additional Health Concerns Infection Onset Date Last Indicated Resolved Time COVID-19 Under Investigation 11/05/2020 11/05/2020 11/05/2020 3:52 PM WEED SPRAYER COVID-19 Under Investigation 11/14/2021 11/14/2021 11/25/2021 4:33 AM WEED SPRAYER documented as of this encounter Care Teams Automation Qa Tester Relationship Specialty Start Date End Date Genia Epps MD PCP - Pediatrics Pediatrics 11/22/11 10/02/23 Genia Epps MD PCP - General Pediatrics 04/12/20 10/02/23 Unknown, Provider PCP - General 11/07/23 12/05/23 Bartolo Aviles DO PCP - General 12/06/23 documented as of this encounter
--- OUTSIDE RECORDS SUMMARY | 2025-04-02 22:36 | XMS_ITS | Encounter Summary ---
Author Organization [facility] [employer] Address [address] [facility] [place] [address] Care Team Providers Care Drug Abuse Program Coordinator Name Role Phone Genia Epps MD Unavailable [phone] Genia Epps MD Primary Care Provider [phone] Karen Hook MD Primary Care Provider [phone] Genia Epps MD Primary Care Provider [phone] Unknown, Provider Primary Care Provider Unavaila Bartolo Ovalle DO Primary Care Provider Reason for Visit * Reason Onset Date Comments MEDICATION REFILL 04/21/2012 Encounter Details Date Type Department Care Team (Late st Contact Info) Description 04/21/2012 Refill [facility] Pediatrics - Diabetes Mgmt [address] [place] [phone] Gideon Bryant MD [address] [place] [address] [phone] MEDICATION REFILL Social History Tobacco Use Types Packs/Day Years Used Date Smoking Tobacco: Never Assessed Sex and Gender Information Value Date Recorded Sex Assigned at Not on file Legal Sex Male 8:23 AM LOCAL AREA NETWORK SYSTEMS ADMINSTRATOR Gender Identity Not on file Sexual Orientation [...] Under Investigation 11/05/2020 11/05/2020 11/05/2020 3:52 PM LOCAL AREA NETWORK SYSTEMS ADMINSTRATOR COVID-19 Under Investigation 11/14/2021 11/14/2021 11/25/2021 4:33 AM LOCAL AREA NETWORK SYSTEMS ADMINSTRATOR documented as of this encounter Care Teams Drug Abuse Program Coordinator Relationship Specialty Start Date End Date [...]
--- OUTSIDE RECORDS SUMMARY | 2025-04-02 22:36 | XMS_ITS | Encounter Summary ---
Author Organization [facility] [employer] Address [address] [place] [address] Care Team Providers Care Buncher Machine Name Role Phone Genia Epps MD Unavailable [phone] Karen Hook MD Primary Care Provider [phone] Genia Epps MD Primary Care Provider [phone] Unknown, Provider Primary Care Provider Unavail Bartolo Ovalle DO Primary Care Provider Encounter Details Date Type Department Care Team (Late st Contact Info) Description 05/20/2013 Telephone [facility] Pediatrics - Diabetes [address] [place] [address] Gideon Bryant MD [address] [place] [id number] Social History Tobacco Use Types Packs/Day Years Used Date Smoking Tobacco: Never Alcohol Use Standard Drinks/Week Comments No 0 (1 standard drink = 0.6 oz pur e alcohol) Sex and Gender Information Value Date Recorded Sex Assigned at Not on file Legal Sex Male 8:23 AM WORD PROCESSING OPERATOR Gender Identity Not on file Sexual Orientation Not on file documented as of this encounter Plan of Treatment Not on file documented as of this encounter Visit Diagnoses Not on filedocumented in this encounter Additional Health Concerns Infection Onset Date Last Indicated Resolved Time COVID-19 Under Investigation 11/05/2020 11/05/2020 11/05/2020 3:52 PM WORD PROCESSING OPERATOR COVID-19 Under Investigation 11/14/2021 11/14/2021 11/25/2021 4:33 AM WORD PROCESSING OPERATOR documented as of this encounter Care Teams Buncher Machine Relationship Specialty Start Date End Date Genia Epps MD PCP - Pediatrics Pediatrics 11/22/11 10/02/23 Karen Hook MD PCP - General Pediatrics 09/21/12 01/26/14 Genia Epps MD PCP - General Pediatrics 04/12/20 10/02/23 Unknown, Provider PCP - General 11/07/23 12/05/23 Bartolo Aviles DO PCP - General 12/06/23 documented as of this encounter
--- OUTSIDE RECORDS SUMMARY | 2025-04-02 22:36 | XMS_ITS | Encounter Summary ---
Author Organization [facility] [employer] Address [address] [facility] [place] [address] Care Team Providers Care Local Company Flatbed Truck Driver Name Role Phone Genia Epps MD Unavailable [phone] Genia Epps MD Primary Care Provider [phone] Unknown, Provider Primary Care Provider Unavaila Bartolo Ovalle DO Primary Care Provider Reason for Visit * Reason Onset Date Comments Letter for School or Work 11/23/2015 Encounter Details Date Type Department Care Team (Late st Contact Info) Description 11/23/2015 Telephone [facility] - Diabetes [address] 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 Author Use safety retraint in car Lifestyle On track( 022 11:33 AM SOFTWARE SALES) No Elli Lainez RN documented as of this encounter Visit Diagnoses Not on filedocumented in this encounter Additional Health Concerns Infection Onset Date Last Indicated Resolved Time COVID-19 Under Investigation 11/05/2020 11/05/2020 11/05/2020 3:52 PM SOFTWARE SALES COVID-19 Under Investigation 11/14/2021 11/14/2021 11/25/2021 4:33 AM SOFTWARE SALES documented as of this encounter Care Teams Local Company Flatbed Truck Driver Relationship Specialty Start Date End Date Genia Epps MD PCP - Pediatrics Pediatrics 11/22/11 10/02/23 Genia Epps MD PCP - General Pediatrics 04/12/20 10/02/23 Unknown, Provider PCP - General 11/07/23 12/05/23 Bartolo Aviles DO PCP - General 12/06/23 documented as of this encounter
--- OUTSIDE RECORDS SUMMARY | 2025-04-02 22:36 | XMS_ITS | Encounter Summary ---
Author Organization [facility] [employer] Address [address] [facility] [place] [address] Care Team Providers Care Soft Work Wrapper Layer And Examiner Name Role Phone Genia Epps MD Unavailable [phone] Genia Epps MD Primary Care Provider [phone] Unknown, Provider Primary Care Provider Unavaila Bartolo Ovalle DO Primary Care Provider Encounter Details Date Type Department Care Team (Late st Contact Info) Description 04/19/2021 Telephone [facility] Pediatrics - Diabetes [address] [address] Liat Dumont DO [address] [place] [id number] Social History Tobacco Use Types Packs/Day Years [...] on file 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 documented in this encounter Plan of Treatment Not on file documented as of this encounter Goals Goal Patient Goal Type Associated Problems Recent Progress Patient-Stated? Author Use safety retraint in car Lifestyle On track( 022 11:33 AM HOGSHEAD DUMPER) Elli Emerson RN documented as of this encounter Visit Diagnoses Not on filedocumented in this encounter Additional Health Concerns Infection Onset Date Last Indicated Resolved Time COVID-19 Under Investigation 11/14/2021 11/14/2021 11/25/2021 4:33 AM HOGSHEAD DUMPER documented as of this encounter Care Teams Soft Work Wrapper Layer And Examiner Relationship Specialty Start Date End Date Genia Epps MD PCP - Pediatrics Pediatrics 11/22/11 10/02/23 Genia Epps MD PCP - General Pediatrics 04/12/20 10/02/23 Unknown, Provider PCP - General 11/07/23 12/05/23 Bartolo Aviles DO PCP - General 12/06/23 documented as of this encounter
--- OUTSIDE RECORDS SUMMARY | 2025-04-02 22:36 | XMS_ITS | Encounter Summary ---
Author Organization [facility] [employer] Address [address] [facility] [place] [address] Care Team Providers Care Regulatory Affairs Intern Name Role Phone Genia Epps MD Unavailable [phone] Genia Epps MD Primary Care Provider [phone] Unknown, Provider Primary Care Provider Unavaila Bartolo Ovalle DO Primary Care Provider Encounter Details Date Type Department Care Team (Late st Contact Info) Description 04/18/2021 Telephone [facility] Pediatrics - Endocrinology [address] [place] [id number] Liat Dumont DO [facility] [place] [address] Social History Tobacco Use Types Packs/Day Years [...] on file 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 Gender Identity Not on file Sexual Orientation [...] Author No 04/02/2021 4:33 AM LUIST Michael Concepicon RN documented as of this encounter Mental [...] already aware, 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.She did not receive a notification when the [...] car Lifestyle On track( 022 11:33 AM OUTSIDE PRODUCTION INSPECTOR) No Elli Lainez RN documented as of this encounter Visit Diagnoses Not on filedocumented in this encounter Additional Health Concerns Infection Onset Date Last Indicated Resolved Time COVID-19 Under Investigation 11/14/2021 11/14/2021 11/25/2021 4:33 AM OUTSIDE PRODUCTION INSPECTOR documented as of this encounter Care Teams Regulatory Affairs Intern Relationship Specialty Start Date End Date Genia Epps MD PCP - Pediatrics Pediatrics 11/22/11 10/02/23 Genia Epps MD PCP - General Pediatrics 04/12/20 10/02/23 Unknown, Provider PCP - General 11/07/23 12/05/23 Bartolo Aviles DO PCP - General 12/06/23 documented as of this encounter
[2025-04-02] MEDS: SODIUM CHLORIDE 0.9% IV 1,000 ML 999 ML IV CONT ×3 (22:37→23:51)
[2025-04-02 22:38] LABS: Basophils Absolute Auto 0.1 K/mm3 (0.0-0.1); Basophils Percent Auto 0.6 % (0.2-1.2); Eosinophils Absolute Auto 0.3 K/mm3 (0-0.3); Eosinophils Percent Auto 1.8 % (0-4.4); Hematocrit 45.5 % (42.0-52.0); Hemoglobin 15.5 g/dL (14.0-18.0); Immature Granulocyte Absolute 0.13 K/mm3 (0.00-0.031); Immature Granulocyte Percent A 0.9 % (0-0.5); Lymphocytes Absolute Auto 3.27 K/mm3 (0.9-3.2); Lymphocytes Percent Auto 23.2 % (18.3-44.2); Mean Corpuscular HGB Conc 34.1 g/dl (32-36); Mean Corpuscular Hemoglobin 31.1 pg (26-34); Mean Corpuscular Volume 91.2 fl (80-100); Mean Platelet Volume 10.5 fl (7.4-10.4); Monocytes Absolute Auto 0.9 K/mm3 (0.1-0.6); Monocytes Percent Auto 6.2 % (2.6-8.5); Neutrophils Absolute Auto 9.5 K/mm3 (1.3-6.7); Neutrophils Percent Auto 67.3 % (45.5-73.1); Platelet Count Result 351 k/mm3 (150-375); Red Blood Count 4.99 M/mm3 (4.6-6.20); Red Cell Distribution Width 12.4 % (11.5-14.5); White Blood Count 14.1 K/mm3 (4.5-10.0)
[2025-04-02 22:51] LABS: Alanine Aminotransferase 27 U/L (6-50); Albumin Level 5.3 g/dL (3.5-5.1); Alkaline Phosphatase 158 U/L (38-126); Anion Gap 23 mmol/L (4-12); Aspartate Amino Transferase 33 U/L (17-59); Bilirubin,Total 1.3 mg/dL (0.2-1.3); Blood Urea Nitrogen 25 mg/dL (9-20); Calcium 9.6 mg/dL (8.4-10.2); Carbon Dioxide 13 mmol/L (22-30); Chloride 92 mmol/L (98-107); Estimated CRCL calculation 106 ml/min; Estimated Glomerular Filt Rate > 60; Glucose 586 mg/dL (65-110); Magnesium 1.9 mg/dL (1.6-2.3); Phosphorus 4.3 mg/dL (2.5-4.5); Potassium 4.7 mmol/L (3.4-5.0); Sodium 128 mmol/L (137-145); Total Protein 7.8 g/dL (6.3-8.2)
[2025-04-02 23:00] VITALS: BP 138/54; PULSE 117; RESP 21; O2SAT 96
[2025-04-02 23:02] LABS: Glucose Point of Care > 500 mg/dl (65-105)
[2025-04-02 23:15] LABS: Add Urine Microscopic? NO; Appearance Urine Clear (Clear); Bilirubin Urine Negative (Negative); Blood Urine Negative (Negative); Color Urine Yellow (Yellow); Glucose Urine UA 3+ mg/dL (Negative); Ketones Urine 3+ mg/dL (Negative); Leukocyte Esterase Ur Negative LEU/UL (Negative); Nitrate Urine Negative (Negative); Protein Urine Negative (Negative); Urobilinogen Urine 0.2 mg/dL (<2.0)
[2025-04-02 23:19] LABS: Hemoglobin A1C 9.9 % (<5.7)
[2025-04-02 23:36] LABS: Fractional Inspired Oxygen 21 %; HCO3 VBG 12.5 mEq/l (24.0-30.0); PO2 VBG 80.3 mmHg (35.0-45.0); pH VBG 7.265 (7.300-7.400)
[2025-04-02 23:41] LABS: Device ROOM AIR; PCO2 VBG 28.1 mmHg (42.0-48.0)
[2025-04-02] MEDS: INSULIN HUMAN REGULAR (*BKC) 100 UNITS/ML 10.2 UNITS IV PUSH (23:42)
[2025-04-02] MEDS: INSULIN HUMAN REGULAR (*BKC) 100 UNITS in SODIUM CHLORIDE 0.9% IV 99 ML 6.8 UNITS IV CONT (23:43)
[2025-04-02 23:49] VITALS: PULSE 118; RESP 17; O2SAT 98
[2025-04-02] MEDS: SODIUM CHLORIDE 0.9% IV 1,000 ML 150 ML IV CONT (23:51)
[2025-04-03] VITALS (12 sets, daily range): BP systolic 130–159; BP diastolic 58–80; PULSE 64–120; RESP 13–21; TEMP 36.6–37; O2SAT 97–100; BMI 21.7
[2025-04-03 00:16] LABS: Beta-Hydroxybutyrate/Acetoace. 6.29 mmol/L (0.02-0.27)
[2025-04-03 00:45] LABS: Glucose Point of Care 380 mg/dl (65-105)
--- NOTE | 2025-04-03 01:04 | P.HP_ITS ---
H&P: HPI History of Present Illness Date/Time: 04/03/25 01:04 Chief Complaint: ?I think I am going into DKA? Narrative: 19-year-old male with a past medical history of essential hypertension and uncontrolled type 1 diabetes mellitus on insulin pump and Dexcom who presented to the ER with symptoms of DKA. He reports that he has been waiting for his new Dexcom sensor to arrive and is been randomly dosing himself with insulin from his pump. Usually pump automatically doses based on his Dexcom sensor. He has not been checking his blood sugars to verify dosing or frequency. He does have a glucometer at home but was not checking. He reports feeling dehydrated and thirsty with some nausea, dizziness and generalized body aches that started today while he was at work. 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 Because of this he and his sales and in home delivery specialist have been adjusting his pump settings to try to optimize his glucose control. He last saw his sales and in home delivery specialist in January. He reports that he knew he was probably and DKA when he was drinking large amounts of water and still was feeling thirsty. He also was having some epigastric discomfort. His glucoses in triage were 489. Glucoses on initial BMP were 586. He had pseudo hyponatremia, low serum bicarb at 13 and anion gap of 23 with an elevated BUN to 25. His UA demonstrated 3+ ketones and 3+ glucose. He did have some mild leukocytosis but no signs of infection. Initial heart rates in the ER were in the 120s. His EKG was sinus tachycardia. He received 2 L of IV fluid bolus with heart rate improving down into the 110s. Despite his hemoglobin A1c be above 9 the patient reports that he actually has not been in DKA since he was in [employer]. He has been a type 1 diabetic since he was 6 years old. He denies any history of diabetic peripheral neuropathy or retinopathy. 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 Review of Systems 2 Review of Systems: 12 systems were reviewed with pertinent positives and negatives per HPI. Except as documented in the HPI, all other systems were reviewed and are negative. [facility] Past Medical History Medical History Vitamin D deficiency Hypertension Tobacco abuse Diabetes type I Surgical History Surgical History (Updated 04/03/25 @ 04:19 by Fidelina Bell DO) No history of previous surgery Family History Family History (Updated 04/03/25 @ 04:27 by Fidelina Bell DO) Grandparent Renal cell carcinoma Diabetes mellitus Hypertension Heart disease Thyroid disorder Father Suicide Social History Social History (Updated 04/03/25 @ 04:27 by Fidelina Bell DO) Social History: He is single. He does not have any children. He lives with his god parents and their children. He has bait since he was 15 years old and transition to smoking 0.5 packs of cigarettes per day over the last year so. He drinks 4 beers a couple of times a week. He denies illicit substance use. Code status: Full code Smoking packs per day: 0.5 Smoking cigarettes per day: 10.0 Years smoked: 3 Smoking pack-years: 1.50 Smoking status: Current every day smoker Tobacco type: cigarettes Alcohol intake: current Drinks per week: 5 Alcohol use details: 5 beers a month Substance use: never Substance use type: does not use Do You Feel Safe in your Home?: Yes Lack of Transportation: No Lack of Food: Never True Current Housing: I Have Housing Concerned About Future Housing: No Difficulty Paying Gas/Electric Bills: No Difficulty Paying for Meds: No Currently Unemployed: No Education: Trade/Vocational Certificate Difficulty w/ Childcare or Family Care: No Spiritual care concerns: No Meds Home Medications and Allergies Home Medications ?Medication ?Instructions ?Recorded ?Confirmed ?Type acetone (urine) test (Ketostix 12/12/23 02/11/25 History strips) glucagon 3 mg/actuation nasal 3 mg intranasal ONCE 12/12/23 02/11/25 History spray (Baqsimi) pen needle, diabetic 32 gauge x #1,200 ea 05/27/24 02/11/25 History (TRUEplus Pen Needle) insulin lispro 100 unit/mL 60 unit (0.6 mL) continuous 07/17/24 02/11/25 Rx subcutaneous solution subcutaneous infusion DAILY 90 days #60 mL blood-glucose sensor (Dexcom G7 #9 ea 01/29/25 02/11/25 Rx Sensor device) fosinopril 40 mg tablet 40 mg PO DAILY #90 tabs 02/11/25 02/11/25 Rx Allergies Allergy/AdvReac Type Severity Reaction Status Date / Time No Known Allergies Allergy Verified 04/02/25 22:07 Vital Signs Vital Signs - 24 hr 04/02/25 22:03 04/02/25 22:26 04/02/25 22:30 Temperature 97.6 F Pulse Rate 123 H 122 H 121 H Respiratory Rate 18 21 H 19 Blood Pressure 145/73 H 148/69 H 150/67 H Pulse Oximetry 100 98 97 Oxygen Delivery Room Air 04/02/25 23:00 04/02/25 23:49 04/03/25 00:02 Temperature Pulse Rate 117 H 118 H 120 H Respiratory Rate 21 H 17 13 Blood Pressure 138/54 L 130/80 Pulse Oximetry 96 98 97 Oxygen Delivery 04/03/25 00:15 Temperature Pulse Rate 117 H Respiratory Rate 21 H Blood Pressure Pulse Oximetry 97 Oxygen Delivery Exam 2 Narrative: Weight 68.8 kg BMI 21.8 Const: Other: Thin body habitus, no acute distress, sitting upright in bed still wearing his work clothes HENMT: Other: Mucous membranes are dry, no oral pharyngeal erythema, fair dentition Eyes: Other: Pupils are equal and reactive, no scleral icterus, no conjunctival pallor Neck: Other: No lymphadenopathy, no thyromegaly Resp: Other: Mild tachypnea, no accessory muscle use, clear lung sounds Cardio: Other: Sinus tachycardia, 2+ bilateral radial pulses GI: Other: Soft, nontender, nondistended, positive bowel sounds Skin: Other: Sunburn to his cheeks in the back of the neck, no petechiae or bruising Neuro: Other: Alert oriented, speech is clear, no facial asymmetry, no localizing neurologic deficits noted during the course of conversation Extrem: Other: No clubbing, cyanosis or edema, no foot wounds Psych: Other: Appropriate mood and affect, pleasant and cooperative, judgment and insight intact H&P: Results Labs Labs: Laboratory Tests 04/02/25 22:27 04/02/25 22:27 04/02/25 04/02/25 04/02/25 22:04 22:27 22:59 WBC 14.1 H RBC 4.99 Hgb 15.5 Hct 45.5 MCV 91.2 MCH 31.1 MCHC 34.1 RDW 12.4 Plt Count 351 MPV 10.5 H Immature Gran % (Auto) 0.9 H Neut % (Auto) 67.3 Lymph % (Auto) 23.2 [place] % (Auto) 6.2 Eos % (Auto) 1.8 Baso % (Auto) 0.6 Lymph # (Auto) 3.27 H [place] # (Auto) 0.9 H Eos # (Auto) 0.3 Baso # (Auto) 0.1 Abs Immat Gran (auto) 0.13 H Absolute Neuts (auto) 9.5 H Absolute Nucleated RBC 0.000 Nucleated RBC % 0.0 VBG pH VBG pCO2 VBG pO2 VBG HCO3 O2 Delivery Device O2 Liters/Min FiO2 Sodium 128 L Potassium 4.7 Chloride 92 L Carbon Dioxide 13 L Anion Gap 23 H BUN 25 H Creatinine 0.94 Estim Creat Clear Calc 106 Estimated GFR > 60 Glucose 586 H* POC Capillary Glucose 489 H > 500 H* Hemoglobin A1c 9.9 H Calcium 9.6 Phosphorus 4.3 Magnesium 1.9 Total Bilirubin 1.3 AST 33 ALT 27 Alkaline Phosphatase 158 H Total Protein 7.8 Albumin 5.3 H Beta-Hydroxybutyrate/Acetoacetate 6.29 H Urine Color Urine Appearance Urine pH Ur Specific [place] Urine Protein Urine Glucose (UA) Urine Ketones Ur Blood (Man) Urine Nitrate Urine Bilirubin Urine Urobilinogen Leukocyte Esterase Rfl Nasal MRSA (PCR) 04/02/25 04/02/25 04/02/25 23:08 23:22 23:53 WBC RBC Hgb Hct MCV MCH MCHC RDW Plt Count MPV Immature Gran % (Auto) Neut % (Auto) Lymph % (Auto) [place] % (Auto) Eos % (Auto) Baso % (Auto) Lymph # (Auto) [place] # (Auto) Eos # (Auto) Baso # (Auto) Abs Immat Gran (auto) Absolute Neuts (auto) Absolute Nucleated RBC Nucleated RBC % VBG pH 7.265 L VBG pCO2 28.1 L* VBG pO2 80.3 H VBG HCO3 12.5 L O2 Delivery Device Room air O2 Liters/Min Not Reportable FiO2 21 Sodium Potassium Chloride Carbon Dioxide Anion Gap BUN Creatinine Estim Creat Clear Calc Estimated GFR Glucose POC Capillary Glucose Hemoglobin A1c Calcium Phosphorus Magnesium Total Bilirubin AST ALT Alkaline Phosphatase Total Protein Albumin Beta-Hydroxybutyrate/Acetoacetate Urine Color Yellow Urine Appearance Clear Urine pH 5.0 Ur Specific [place] 1.030 Urine Protein Negative Urine Glucose (UA) 3+ H Urine Ketones 3+ H Ur Blood (Man) Negative Urine Nitrate Negative Urine Bilirubin Negative Urine Urobilinogen 0.2 Leukocyte Esterase Rfl Negative Nasal MRSA (PCR) Pending 04/03/25 00:42 WBC RBC Hgb Hct MCV MCH MCHC RDW Plt Count MPV Immature Gran % (Auto) Neut % (Auto) Lymph % (Auto) [place] % (Auto) Eos % (Auto) Baso % (Auto) Lymph # (Auto) [place] # (Auto) Eos # (Auto) Baso # (Auto) Abs Immat Gran (auto) Absolute Neuts (auto) Absolute Nucleated RBC Nucleated RBC % VBG pH VBG pCO2 VBG pO2 VBG HCO3 O2 Delivery Device O2 Liters/Min FiO2 Sodium Potassium Chloride Carbon Dioxide Anion Gap BUN Creatinine Estim Creat Clear Calc Estimated GFR Glucose POC Capillary Glucose 380 H Hemoglobin A1c Calcium Phosphorus Magnesium Total Bilirubin AST ALT Alkaline Phosphatase Total Protein Albumin Beta-Hydroxybutyrate/Acetoacetate Urine Color Urine Appearance Urine pH Ur Specific [place] Urine Protein Urine Glucose (UA) Urine Ketones Ur Blood (Man) Urine Nitrate Urine Bilirubin Urine Urobilinogen Leukocyte Esterase Rfl Nasal MRSA (PCR) Impressions Chest X-Ray 04/02/25 22:39 IMPRESSION: No focal infiltrate or effusion. EKG sinus tachycardia rate 116 the normal QTC, possible left atrial enlargement, right axis deviation, right ventricular conduction delay. Cardiology interpretation pending All imaging and EKGs personally reviewed and interpreted. And unless stated otherwise agree with radiologic and cardiology interpretation. Assessment and Plan Assessment and plan (1) DKA, type 1: Qualifiers: Diabetes mellitus complication detail: without coma Qualified Code(s): E10.10 - Type 1 diabetes mellitus with ketoacidosis without coma Code(s): E10.10 - Type 1 diabetes mellitus with ketoacidosis without coma Status: Acute (2) Uncontrolled type 1 diabetes mellitus with hyperglycemia: Code(s): E10.65 - Type 1 diabetes mellitus with hyperglycemia Status: Acute Plan Patient is in DKA due to inadequate insulin dosing since she has not had continuous glucose monitoring communicating with his insulin pump. Patient received 2 L of isotonic fluids in the ER. I requested patient receive 1/3 L of fluids. Patient has been started on insulin drip per protocol with titration of IV fluids with bearing levels of dextrose based on glucose per protocol. Will monitor serial BMPs until anion gap is closed and CO2 is normalized. Patient does have historically uncontrolled diabetes with A1c today 9.9. Patient does have a compensatory respiratory alkalosis with some mild tachypnea but chest x- ray does not demonstrate evidence of infection. Patient has pseudo hyponatremia due to hyperglycemia but this corrects as expected. Will add potassium supplementation to the patient's IV fluids and monitor closely. Currently potassium is normal. Anticipate rapid correction of patient's DKA with adequate insulin administration. Patient has been admitted to the ICU. Mail Opener has been consulted. Prior to the end of my shift the patient denies gap had closed in his serum bicarb it normally. Will transition the patient to Lantus and moderate dose sliding scale insulin with Accu-Cheks a.c. HS. Patient has been admitted as observation status. 35 minute spent in critical care activities. Due to a high probability of clinically significant, life threatening deterioration, the patient required my highest level of preparedness to intervene emergently and I personally spent this critical care time directly and personally managing the patient. This critical care time included obtaining a history; examining the patient; pulse oximetry; ordering and review of studies; arranging urgent treatment with development of a management plan; evaluation of patient's response to treatment; frequent reassessment; and discussions with other providers. It was exclusive of separately billable procedures and treating other patients and teaching time. Please see Assessment and Plan section and the rest of the note for further information on patient assessment and treatment. Quality VTE Prophylaxis VTE prophylaxis: pharmacologic ordered (Lovenox 40 mg subQ daily.) Hospitalist [facility] Advance Care Plan I have confirmed that the patient's Advanced Care Plan is present, code status is documented, or surrogate decision maker is listed in patient medical record.: Yes Medication Reconciliation I have utilized all available resources to obtain, update and review the patients current medications (includes all prescriptions, OTC, herbals, cannabis, and nutritional supplements).: Yes
[2025-04-03 01:11] LABS: MRSA (PCR) NOT DETECTED (NOT DETECTE)
[2025-04-03] MEDS: KCL 20 MEQ/D5/0.45% SOD CHL 1,000 ML 150 ML IV CONT (01:45)
[2025-04-03 03:15] LABS: Glucose Point of Care 197 mg/dl (65-105)
[2025-04-03 03:15] LABS: Glucose Point of Care 235 mg/dl (65-105)
[2025-04-03 03:53] LABS: Glucose Point of Care 209 mg/dl (65-105)
--- NOTE | 2025-04-03 04:01 | PC.NURSE ---
This patient, Haider Gordon, was admitted to Intensive Care Unit-10 at 0138. Patient/family oriented to hospital policies and general routines including ID bracelet, bed and alarms, visiting hours, pain management, procedures, bathroom and other care routines, personal items, smoking policy, room service/diet, and visiting hours. Information on how to activate the Rapid Response Team has been discussed. Patient/Family are encouraged to report perceived risks to care and to ask questions if they do not understand what they are told or what they should do.
[2025-04-03 04:21] LABS: Anion Gap 8 mmol/L (4-12); Blood Urea Nitrogen 19 mg/dL (9-20); Calcium 8.3 mg/dL (8.4-10.2); Carbon Dioxide 21 mmol/L (22-30); Chloride 106 mmol/L (98-107); Estimated CRCL calculation 141 ml/min; Estimated Glomerular Filt Rate > 60; Glucose 197 mg/dL (65-110); Sodium 135 mmol/L (137-145)
[2025-04-03] MEDS: INSULIN GLARGINE (*BKC) 100 UNITS/ML 20 UNITS SUB-Q (04:40)
[2025-04-03 06:46] LABS: Hematocrit 39.2 % (42.0-52.0); Mean Corpuscular HGB Conc 33.2 g/dl (32-36); Mean Corpuscular Hemoglobin 30.7 pg (26-34); Mean Corpuscular Volume 92.5 fl (80-100); Mean Platelet Volume 10.3 fl (7.4-10.4); Platelet Count Result 265 k/mm3 (150-375); Red Blood Count 4.24 M/mm3 (4.6-6.20); Red Cell Distribution Width 12.5 % (11.5-14.5)
[2025-04-03 07:13] LABS: Anion Gap 7 mmol/L (4-12); Blood Urea Nitrogen 18 mg/dL (9-20); Calcium 8.4 mg/dL (8.4-10.2); Carbon Dioxide 22 mmol/L (22-30); Chloride 106 mmol/L (98-107); Estimated CRCL calculation 136 ml/min; Estimated Glomerular Filt Rate > 60; Glucose 211 mg/dL (65-110); Potassium 4.7 mmol/L (3.4-5.0); Sodium 135 mmol/L (137-145)
[2025-04-03 07:25] LABS: Glucose Point of Care 216 mg/dl (65-105)
[2025-04-03] MEDS: ENOXAPARIN 40 MG/0.4 ML SYRINGE SUB-Q (08:08)
[2025-04-03] MEDS: INSULIN ASPART (*BKC) 100 UNITS/ML SUB-Q ×4 (08:08→17:12)
[2025-04-03] MEDS: lisinopriL 20 MG TABLET 40 MG PO (08:09)
--- NOTE | 2025-04-03 08:38 | WPDCNINT ---
Assessment and Plan Assessment and plan (1) Hypertension: Code(s): I10 - Essential (primary) hypertension Status: Acute Assessment and Plan: Continue lisinopril (2) DKA, type 1: Qualifiers: Diabetes mellitus complication detail: without coma Qualified Code(s): E10.10 - Type 1 diabetes mellitus with ketoacidosis without coma Code(s): E10.10 - Type 1 diabetes mellitus with ketoacidosis without coma Status: Acute Assessment and Plan: Pt was given IVF bolus and started on infusion of insulin IV fluid Anion gap has now closed and symptoms are improved Patient has been transition to subcutaneous insulin Monitor and adjust accordingly Consult dietitian and needle bar molder Diabetic diet Patient was counseled regarding compliance (3) Leukocytosis: Code(s): D72.829 - Elevated white blood cell count, unspecified Status: Acute Assessment and Plan: Likely stress response from DKA. No objective sign of infection UA chest x-ray negative Plan DVT prophylaxis -Lovenox Nutrition -consistent carbohydrate diet Code Status - Full Code Transfer out of ICU Construction Controller Consult Note Consult date: 04/03/25 Reason for consult: DKA HPI: Haider Gordon is a 19 year old male with a past medical history of essential hypertension and uncontrolled type 1 diabetes mellitus on insulin pump and Dexcom who presented to the ER with symptoms of DKA. He states that he does not have eased Dexcom blood glucose monitor and has been randomly dosing himself through his insulin pump. He states he does not know the basal rate or how much insulin he receives from the pump for his carbs but he just feels in the numbers in the pump calculates the dosing. He has not been checking his blood sugars to verify dosing or frequency. He does have a glucometer at home but was not checking. Last few days he started feeling dehydrated and thirsty with some nausea, dizziness and generalized body aches that started yesterday while he was at work. 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 He states that he felt that he was probably in in DKA hence came to the hospital. All other systems were reviewed and were negative Workup in the ER showed Glucoses on initial BMP were 586. He had pseudo hyponatremia, low serum bicarb at 13 and anion gap of 23 with an elevated BUN to 25. UA demonstrated 3+ ketones and 3+ glucose. mild leukocytosis Initial heart rates in the ER were in the 120s. His EKG was sinus tachycardia. He received 2 L of IV fluid bolus and started on insulin infusion and IV fluids admitted to ICU. Overnight his anion gap had closed and symptoms improved patient was transition to subcutaneous insulin and was given food Review of Systems Review of Systems: All systems reviewed & are unremarkable except as noted in HPI and below (HPI) [facility] Past Medical History Medical History Vitamin D deficiency Hypertension Tobacco abuse Diabetes type I Surgical History Surgical History No history of previous surgery Family History Family History Grandparent Renal cell carcinoma Diabetes mellitus Hypertension Heart disease Thyroid disorder Father Suicide Social History Social History Social History: He is single. He does not have any children. He lives with his god parents and their children. He has bait since he was 15 years old and transition to smoking 0.5 packs of cigarettes per day over the last year so. He drinks 4 beers a couple of times a week. He denies illicit substance use. Code status: Full code Smoking packs per day: 0.5 Smoking cigarettes per day: 10.0 Years smoked: 3 Smoking pack-years: 1.50 Smoking status: Current every day smoker Tobacco type: cigarettes Alcohol intake: current Drinks per week: 5 Alcohol use details: 5 beers a month Substance use: never Substance use type: does not use Do You Feel Safe in your Home?: Yes Lack of Transportation: No Lack of Food: Never True Current Housing: I Have Housing Concerned About Future Housing: No Difficulty Paying Gas/Electric Bills: No Difficulty Paying for Meds: No Currently Unemployed: No Education: Trade/Vocational Certificate Difficulty w/ Childcare or Family Care: No Spiritual care concerns: No Meds Home Medications and Allergies Home Medications ?Medication ?Instructions ?Recorded ?Confirmed ?Type acetone (urine) test (Ketostix 12/12/23 04/03/25 History strips) glucagon 3 mg/actuation nasal 3 mg intranasal ONCE 12/12/23 04/03/25 History spray (Baqsimi) pen needle, diabetic 32 gauge x #1,200 ea 05/27/24 04/03/25 History 32 (TRUEplus Pen Needle) insulin lispro 100 unit/mL 60 unit (0.6 mL) continuous 07/17/24 04/03/25 Rx subcutaneous solution subcutaneous infusion DAILY 90 days #60 mL blood-glucose sensor (Dexcom G7 #9 ea 01/29/25 04/03/25 Rx Sensor device) fosinopril 40 mg tablet 40 mg PO DAILY #90 tabs 02/11/25 04/03/25 Rx Allergies Allergy/AdvReac Type Severity Reaction Status Date / Time No Known Allergies Allergy Verified 04/02/25 22:07 Vital Signs Vital Signs - 24 hr 04/02/25 22:03 04/02/25 22:26 04/02/25 22:30 Temperature 36.4 C Pulse Rate 123 H 122 H 121 H Respiratory Rate 18 21 H 19 Blood Pressure 145/73 H 148/69 H 150/67 H Pulse Oximetry 100 98 97 Oxygen Delivery Room Air 04/02/25 23:00 04/02/25 23:49 04/03/25 00:02 Temperature Pulse Rate 117 H 118 H 120 H Respiratory Rate 21 H 17 13 Blood Pressure 138/54 L 130/80 Pulse Oximetry 96 98 97 Oxygen Delivery 04/03/25 00:15 04/03/25 01:36 04/03/25 02:00 Temperature Pulse Rate 117 H 115 H 114 H Respiratory Rate 21 H 16 Blood Pressure 130/58 L Pulse Oximetry 97 99 Oxygen Delivery 04/03/25 02:00 04/03/25 04:00 04/03/25 04:00 Temperature 37.0 C 36.6 C Pulse Rate 112 H 89 86 Respiratory Rate 21 H 16 Blood Pressure 137/63 137/65 Pulse Oximetry 97 97 Oxygen Delivery 04/03/25 06:00 04/03/25 06:00 04/03/25 07:48 Temperature 36.6 C Pulse Rate 81 82 79 Respiratory Rate 16 16 Blood Pressure 143/64 H 130/58 L Pulse Oximetry 97 98 Oxygen Delivery Exam Narrative: General: Pt is alert awake and in NAD Lungs/Chest: Trachea central Clear BS B/L, No crackles or wheezing. Cardiac: RRR. Normal S1 S2. No murmurs Circulation: Pedal pulses are intact and symmetrical. Abdomen: Normal bowel sounds.. Soft. NT. ND. Extremities: No clubbing, cyanosis or edema. Warm : Alanis in place Neurologic: Follows commands. Moves all 4 extremities PERRL Skin: No Rash Results Labs 04/03/25 06:33 04/03/25 06:32 Labs: Impressions Chest X-Ray 04/02/25 22:39 IMPRESSION: No focal infiltrate or effusion. Short CBC 04/02/25 04/03/25 Range/Units 22:27 06:33 WBC 14.1 H 14.0 H (4.5-10.0) K/mm3 Hgb 15.5 13.0 L (14.0-18.0) g/dL Hct 45.5 39.2 L (42.0-52.0) % Plt Count 351 265 (150-375) k/mm3 BMP 04/02/25 04/03/25 04/03/25 22:27 03:50 06:32 Sodium 128 L 135 L 135 L Potassium 4.7 4.0 4.7 Chloride 92 L 106 106 Carbon Dioxide 13 L 21 L 22 BUN 25 H 19 18 Creatinine 0.94 0.69 L 0.72 Glucose 586 H* 197 H 211 H Calcium 9.6 8.3 L 8.4 Liver Function 04/02/25 Range/Units 22:27 Total Bilirubin 1.3 (0.2-1.3) mg/dL AST 33 (17-59) U/L ALT 27 (6-50) U/L Alkaline Phosphatase 158 H (38-126) U/L Albumin 5.3 H (3.5-5.1) g/dL Urine 04/02/25 Range/Units 23:08 Urine Color Yellow (Yellow) Urine Appearance Clear (Clear) Urine pH 5.0 (5.0-9.0) Ur Specific [place] 1.030 (1.001-1.035) Urine Protein Negative (Negative) mg/dL Urine Glucose (UA) 3+ H (Negative) mg/dL Quality VTE Prophylaxis VTE prophylaxis: pharmacologic ordered Hospitalist MIPS Advance Care Plan I have confirmed that the patient's Advanced Care Plan is present, code status is documented, or surrogate decision maker is listed in patient medical record.: Yes Medication Reconciliation I have utilized all available resources to obtain, update and review the patients current medications (includes all prescriptions, OTC, herbals, cannabis, and nutritional supplements).: Yes
[2025-04-03 11:51] LABS: Glucose Point of Care 103 mg/dl (65-105)
[2025-04-03 16:01] LABS: Glucose Point of Care 128 mg/dl (65-105)
--- NOTE | 2025-04-03 18:26 | PC.NURSE ---
This patient, Haider Gordon, was received from ICU on 04/03/25 at 1826. Patient/family oriented to unit policies and routines
[2025-04-03 20:08] LABS: Glucose Point of Care 185 mg/dl (65-105)
[2025-04-04 04:38] VITALS: BP 118/58; PULSE 54; RESP 18; TEMP 36.8; O2SAT 100
--- NOTE | 2025-04-04 07:12 | P.PNIM_ITS ---
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 * Will continue current medications -lisinopril (3) Leukocytosis: Code(s): D72.829 - Elevated white blood cell count, unspecified Status: Acute Assessment and Plan: * Likely stress response from DKA. * No objective sign of infection * UA chest x-ray negative Plan DVT prophylaxis -Lovenox Nutrition -consistent carbohydrate diet Code Status - Full Code Transfer out of ICU Subjective Date/time seen: 04/04/25 07:12 Interval history: 19-year-old male with a past medical history of essential hypertension and uncontrolled type 1 diabetes mellitus on insulin pump and Dexcom who presented to the ER with symptoms of DKA. 04/04/2025 Review of Systems Review of Systems: 12 systems were reviewed with pertinent positives and negatives per HPI. Except as documented in the HPI, all other systems were reviewed and are negative. All systems reviewed & are unremarkable except as noted in HPI and below (HPI) Exam Narrative: General: Pt is alert awake and in NAD Lungs/Chest: Trachea central Clear BS B/L, No crackles or wheezing. Cardiac: RRR. Normal S1 S2. No murmurs Circulation: Pedal pulses are intact and symmetrical. Abdomen: Normal bowel sounds.. Soft. NT. ND. Extremities: No clubbing, cyanosis or edema. Warm : Alanis in place Neurologic: Follows commands. Moves all 4 extremities PERRL Skin: No Rash Const: Other: Thin body habitus, no acute distress, sitting upright in bed still wearing his work clothes HENMT: Other: Mucous membranes are dry, no oral pharyngeal erythema, fair dentition Eyes: Other: Pupils are equal and reactive, no scleral icterus, no conjunctival pallor Neck: Other: No lymphadenopathy, no thyromegaly Resp: Other: Mild tachypnea, no accessory muscle use, clear lung sounds Cardio: Other: Sinus tachycardia, 2+ bilateral radial pulses GI: Other: Soft, nontender, nondistended, positive bowel sounds Skin: Other: Sunburn to his cheeks in the back of the neck, no petechiae or bruising Neuro: Other: Alert oriented, speech is clear, no facial asymmetry, no localizing neurologic deficits noted during the course of conversation Extrem: Other: No clubbing, cyanosis or edema, no foot wounds Psych: Other: Appropriate mood and affect, pleasant and cooperative, judgment and insight intact Objective Data Vital Signs Vital Signs: Vital Signs - 24 hr 04/03/25 07:48 04/03/25 08:00 04/03/25 08:00 Temperature 98 F Pulse Rate 79 92 Respiratory Rate 16 Blood Pressure 130/58 L Pulse Oximetry 98 97 Oxygen Delivery Room Air 04/03/25 08:53 04/03/25 16:00 04/03/25 20:00 Temperature 98 F Pulse Rate 85 64 Respiratory Rate 18 18 Blood Pressure 159/66 H Pulse Oximetry 97 100 100 Oxygen Delivery Room Air Room Air 04/03/25 20:47 04/04/25 04:38 Temperature 98.1 F 98.2 F Pulse Rate 64 54 L Respiratory Rate 18 18 Blood Pressure 136/66 118/58 L Pulse Oximetry 100 100 Oxygen Delivery Intake/Output Intake/Output: Intake & Output 04/01/25 04/02/25 04/03/25 04/04/25 23:59 23:59 23:59 23:59 Intake Total 1999 1740.0 Balance 1999 1740.0 Meds/Results Medications: Active Medications Generic Name Dose Route Start Last Admin Trade Name Freq PRN Reason Stop Dose Admin Dextrose 12.5 gm 04/02/25 22:52 Dextrose 50% 25 Gm/50 Ml Syringe IV PUSH PRN PRN Hypoglycemia Protocol Enoxaparin Sodium 40 mg 04/03/25 09:00 04/03/25 08:08 Enoxaparin 40 Mg/0.4 Ml Syringe SUB-Q 40 mg DAILY BHARAT Administration Glucagon 1 mg 04/02/25 22:52 Glucagon For Inj 1 Mg Vial IM PRN PRN Hypoglycemia Protocol Glucose 15 gm 04/02/25 22:52 Glucose Oral Gel 15 Gm Of Glucse In 37.5 Gm Tube PO PRN PRN Hypoglycemia Protocol Dextrose 1,000 mls @ 100 mls/hr 04/02/25 22:52 Dextrose 5% 1,000 Ml IVPB PRN PRN Hypoglycemia Protocol Insulin Aspart 1 - 3 units 04/03/25 21:00 04/03/25 21:11 Insulin Aspart (*Bkc) 100 Units/Ml SUB-Q Not Given HS BHARAT Protocol Insulin Aspart 2 - 5 units 04/03/25 08:00 04/03/25 17:09 Insulin Aspart (*Bkc) 100 Units/Ml SUB-Q Not Given TIDWM BHARAT Protocol Insulin Aspart 3 units 04/03/25 12:00 04/03/25 17:12 Insulin Aspart (*Bkc) 100 Units/Ml SUB-Q 3 units TIDWM BHARAT Administration Insulin Glargine 20 units 04/04/25 09:00 Insulin Glargine (*Bkc) 100 Units/Ml SUB-Q QAM BHARAT Lisinopril 40 mg 04/03/25 09:00 04/03/25 08:09 Lisinopril 20 Mg Tablet PO 40 mg QAM BHARAT Administration Radiology Results: ITS Impressions Chest X-Ray 04/02/25 22:39 IMPRESSION: No focal infiltrate or effusion. Labs Labs: Laboratory Results - last 24 hr 04/03/25 04/03/25 04/03/25 06:32 07:22 11:48 Sodium 135 L Potassium 4.7 Chloride 106 Carbon Dioxide 22 Anion Gap 7 BUN 18 Creatinine 0.72 Estim Creat Clear Calc 136 Estimated GFR > 60 Glucose 211 H POC Capillary Glucose 216 H 103 Calcium 8.4 04/03/25 04/03/25 15:55 20:01 Sodium Potassium Chloride Carbon Dioxide Anion Gap BUN Creatinine Estim Creat Clear Calc Estimated GFR Glucose POC Capillary Glucose 128 H 185 H Calcium Quality VTE Prophylaxis VTE prophylaxis: pharmacologic ordered
[2025-04-04 07:23] LABS: Basophils Absolute Auto 0.1 K/mm3 (0.0-0.1); Basophils Percent Auto 0.6 % (0.2-1.2); Eosinophils Absolute Auto 0.3 K/mm3 (0-0.3); Eosinophils Percent Auto 2.8 % (0-4.4); Hematocrit 42.6 % (42.0-52.0); Immature Granulocyte Absolute 0.04 K/mm3 (0.00-0.031); Immature Granulocyte Percent A 0.4 % (0-0.5); Lymphocytes Absolute Auto 3.35 K/mm3 (0.9-3.2); Lymphocytes Percent Auto 37.6 % (18.3-44.2); Mean Corpuscular HGB Conc 32.9 g/dl (32-36); Mean Corpuscular Hemoglobin 30.6 pg (26-34); Mean Platelet Volume 10.1 fl (7.4-10.4); Monocytes Absolute Auto 0.7 K/mm3 (0.1-0.6); Monocytes Percent Auto 8.2 % (2.6-8.5); Neutrophils Absolute Auto 4.5 K/mm3 (1.3-6.7); Neutrophils Percent Auto 50.4 % (45.5-73.1); Platelet Count Result 240 k/mm3 (150-375); Red Blood Count 4.58 M/mm3 (4.6-6.20); Red Cell Distribution Width 12.7 % (11.5-14.5); White Blood Count 8.9 K/mm3 (4.5-10.0)
[2025-04-04 07:44] LABS: Alanine Aminotransferase 18 U/L (6-50); Albumin Level 3.8 g/dL (3.5-5.1); Alkaline Phosphatase 78 U/L (38-126); Anion Gap 6 mmol/L (4-12); Aspartate Amino Transferase 28 U/L (17-59); Blood Urea Nitrogen 9 mg/dL (9-20); Calcium 8.6 mg/dL (8.4-10.2); Carbon Dioxide 26 mmol/L (22-30); Chloride 105 mmol/L (98-107); Estimated CRCL calculation 161 ml/min; Estimated Glomerular Filt Rate > 60; Glucose 170 mg/dL (65-110); Sodium 137 mmol/L (137-145); Total Protein 6.1 g/dL (6.3-8.2)
[2025-04-04 07:51] LABS: Glucose Point of Care 171 mg/dl (65-105)
[2025-04-04] MEDS: ENOXAPARIN 40 MG/0.4 ML SYRINGE SUB-Q (09:20)
[2025-04-04] MEDS: lisinopriL 20 MG TABLET 40 MG PO (09:20)
[2025-04-04] MEDS: INSULIN ASPART (*BKC) 100 UNITS/ML SUB-Q ×2 (09:20→11:52)
[2025-04-04] MEDS: INSULIN GLARGINE (*BKC) 100 UNITS/ML 20 UNITS SUB-Q (09:20)
--- NOTE | 2025-04-04 10:06 | PM.DS ---
DS: Admitting Diagnosis Discharge Date 04/04/2025 Admitting Diagnosis DKA DS: Discharge Diagnosis Discharge Diagnosis (1) DKA, type 1: Qualifiers: Diabetes mellitus complication detail: without coma Qualified Code(s): E10.10 - Type 1 diabetes mellitus with ketoacidosis without coma Code(s): E10.10 - Type 1 diabetes mellitus with ketoacidosis without coma Status: Acute (2) Hypertension: Code(s): I10 - Essential (primary) hypertension Status: Acute (3) Leukocytosis: Code(s): D72.829 - Elevated white blood cell count, unspecified Status: Acute DS: Summary Hospital Course Reason for hospitalization: DKA Hospital Course: 19-year-old male with a past medical history of essential hypertension and uncontrolled type 1 diabetes mellitus on insulin pump and Dexcom who presented to the ER with symptoms of DKA. He reports that he has been waiting for his new Dexcom sensor to arrive and is been randomly dosing himself with insulin from his pump. Usually pump automatically doses based on his Dexcom sensor. He has not been checking his blood sugars to verify dosing or frequency. He does have a glucometer at home but was not checking. He reports feeling dehydrated and thirsty with some nausea, dizziness and generalized body aches that started today while he was at work. 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 Because of this he and his vacuum cleaner mechanic have been adjusting his pump settings to try to optimize his glucose control. He last saw his vacuum cleaner mechanic in January. He reports that he knew he was probably and DKA when he was drinking large amounts of water and still was feeling thirsty. He also was having some epigastric discomfort. His glucoses in triage were 489. Glucoses on initial BMP were 586. He had pseudo hyponatremia, low serum bicarb at 13 and anion gap of 23 with an elevated BUN to 25. His UA demonstrated 3+ ketones and 3+ glucose. He did have some mild leukocytosis but no signs of infection. Initial heart rates in the ER were in the 120s. His EKG was sinus tachycardia. He received 2 L of IV fluid bolus with heart rate improving down into the 110s. Despite his hemoglobin A1c be above 9 the patient reports that he actually has not been in DKA since he was in [employer]. He has been a type 1 diabetic since he was 6 years old. He denies any history of diabetic peripheral neuropathy or retinopathy. It is been a couple of years since he is followed up within ophthalmic technologist. Patient was admitted to the ICU and received 2 L IV fluid bolus and started on insulin infusion with IV fluids. Overnight, his anion gap closed and symptoms improved. Patient was subsequently transitioned to subcutaneous insulin and was given food and was able to keep down the food without any nausea or vomiting. His glucose levels remained stable after that. On 04/04, his anion gap remained within normal limits, glucose levels have remained under 200 and serum bicarb has also been within normal limits. These parameters match resolution of DKA. This, again also given the fact that the patient is otherwise hemodynamically stable with stable vital signs and without any persisting symptoms such as nausea, vomiting, or an altered mental status, the patient can safely be discharged home at this time. He will be instructed to closely follow-up with his PCP regarding management of his glucose. He will also be instructed to closely follow-up with his glucose with the glucometer that he has at home. He states that he was not using it before being admitted because he was working as 2 jobs and did have the time to regularly check his glucose. He states that he does not work until Sunday night. He also states that he will be receiving a new sensor for his Dexcom tomorrow. Given this information, the patient is stable for discharge home at this time. Patient is amenable to this plan. Status at Discharge Functional status at discharge: independent ambulation Overall status at discharge: patient is back to baseline Time Spent with Patient Time attestation: Total time spent providing and/or coordinating discharge services: 37 Exam Narrative: General: Pt is alert awake and in NAD Lungs/Chest: Trachea central Clear BS B/L, No crackles or wheezing. Cardiac: RRR. Normal S1 S2. No murmurs Circulation: Pedal pulses are intact and symmetrical. Abdomen: Normal bowel sounds.. Soft. NT. ND. Extremities: No clubbing, cyanosis or edema. Warm : Alanis in place Neurologic: Follows commands. Moves all 4 extremities PERRL Skin: No Rash Const: Other: Thin body habitus, no acute distress, sitting upright in bed still wearing his work clothes HENMT: Other: Mucous membranes are dry, no oral pharyngeal erythema, fair dentition Eyes: Other: Pupils are equal and reactive, no scleral icterus, no conjunctival pallor Neck: Other: No lymphadenopathy, no thyromegaly Resp: Other: Mild tachypnea, no accessory muscle use, clear lung sounds Cardio: Other: Sinus tachycardia, 2+ bilateral radial pulses GI: Other: Soft, nontender, nondistended, positive bowel sounds Skin: Other: Sunburn to his cheeks in the back of the neck, no petechiae or bruising Neuro: Other: Alert oriented, speech is clear, no facial asymmetry, no localizing neurologic deficits noted during the course of conversation Extrem: Other: No clubbing, cyanosis or edema, no foot wounds Psych: Other: Appropriate mood and affect, pleasant and cooperative, judgment and insight intact DS: Data Data Completed and Pending Labs on day of discharge: Labs from last 24 hours 04/04/25 04/04/25 04/03/25 07:44 07:18 20:01 WBC 8.9 RBC 4.58 L Hgb 14.0 Hct 42.6 MCV 93.0 MCH 30.6 MCHC 32.9 RDW 12.7 Plt Count 240 MPV 10.1 Immature Gran % (Auto) 0.4 Neut % (Auto) 50.4 Lymph % (Auto) 37.6 [place] % (Auto) 8.2 Eos % (Auto) 2.8 Baso % (Auto) 0.6 Lymph # (Auto) 3.35 H [place] # (Auto) 0.7 H Eos # (Auto) 0.3 Baso # (Auto) 0.1 Abs Immat Gran (auto) 0.04 H Absolute Neuts (auto) 4.5 Absolute Nucleated RBC 0.000 Nucleated RBC % 0.0 Sodium 137 Potassium 4.0 Chloride 105 Carbon Dioxide 26 Anion Gap 6 BUN 9 D Creatinine 0.59 L Estim Creat Clear Calc 161 Estimated GFR > 60 Glucose 170 H POC Capillary Glucose 171 H 185 H Calcium 8.6 Total Bilirubin 1.0 AST 28 ALT 18 Alkaline Phosphatase 78 Total Protein 6.1 L Albumin 3.8 04/03/25 04/03/25 15:55 11:48 WBC RBC Hgb Hct MCV MCH MCHC RDW Plt Count MPV Immature Gran % (Auto) Neut % (Auto) Lymph % (Auto) [place] % (Auto) Eos % (Auto) Baso % (Auto) Lymph # (Auto) [place] # (Auto) Eos # (Auto) Baso # (Auto) Abs Immat Gran (auto) Absolute Neuts (auto) Absolute Nucleated RBC Nucleated RBC % Sodium Potassium Chloride Carbon Dioxide Anion Gap BUN Creatinine Estim Creat Clear Calc Estimated GFR Glucose POC Capillary Glucose 128 H 103 Calcium Total Bilirubin AST ALT Alkaline Phosphatase Total Protein Albumin Discharge Plan Discharge Attending physician on discharge: Anabelle Albrecht Consulting providers: Jack Rodriguez; Wally Langley Discharging Clinician: Wally Langley Anticipated Discharge Date/Time: 04/04/25 10:04 Patient Disposition: Home Activity: as tolerated Diet: as tolerated Discharge Instructions: Discharge disposition: Stable Take medications as prescribed Monitor blood pressures Take caution while standing, rising, or moving Change positions slowly taking a break between each position change If you standing feel dizzy sit back down and take a break Encouraged to continue with yearly vaccinations Return to the emergency department if he developed sudden shortness of breath, chest pain, nausea, vomiting, upset stomach or intractable diarrhea Return to the emergency department if you develop fever greater than 101.5 Follow-up with the primary care physician within 1-2 weeks Thank you for [facility] for your healthcare needs Patient Instructions: Antibiotic Form, Diabetic Ketoacidosis (GEN), Basic Carbohydrate Counting (DC) Patient Language: Greek Stand Alone Forms: General Discharge Information Follow-up/Referrals: Ely Benites NP [Primary Care Provider] - Discharge Medications: Continued (DME) Ketostix Strip See Rx Instructions .Route Rx Instructions: As directed Baqsimi 3 mg/actuation spray,non-aerosol 3 mg intranasal ONCE Rx Instructions: as a single dose insulin lispro 100 unit/mL solution 60 unit continuous subcutaneous infusion DAILY 90 Days Qty: 60 1RF (DME) Dexcom G7 Sensor Device See Rx Instructions .ROUTE .MEDSUPPLY Qty: 9 2RF Rx Instructions: As directed fosinopril 40 mg tablet 40 mg PO DAILY Qty: 90 3RF (DME) pen needle, diabetic [TRUEplus Pen Needle] 32 gauge x 5/32 needle See Rx Instructions .ROUTE .MEDSUPPLY Qty: 1200 Rx Instructions: As directed Date of admission: 04/02/25 23:48 Primary Care Provider: Ely Benites Admitting Provider: Fidelina Bell Attending physician on admission: Fidelina Bell Condition: Stable Quality VTE Prophylaxis VTE prophylaxis: pharmacologic ordered
[2025-04-04 11:47] LABS: Glucose Point of Care 197 mg/dl (65-105)
--- NOTE | 2025-04-09 15:05 | PCCDE ---
Courtesy follow up call placed. Direct number included in message.
== END 2025-04-04 12:23 | disposition home or self-care (01) ==
LOC: ANHED 22:56 → ANHICU 04-03 04:15 → ANH2MED 04-04 06:42 → ANHICU 04-06 08:09
PROVIDERS: Physician Assistant; Admitting Provider Internal Medicine; Emergency Provider Emergency Medicine; PCP Nurse Practitioner Family; Visit Provider Internal Medicine
DX: E10.10 Type 1 diabetes mellitus with ketoacidosis without coma (principal); I10 Essential (primary) hypertension; D72.829 Elevated white blood cell count, unspecified; F17.210 Nicotine dependence, cigarettes, uncomplicated; Z79.4 Long term (current) use of insulin; Z79.899 Other long term (current) drug therapy
CPT/HCPCS: 36415; 71045; 80048; 80053; 81003; 82010; 82803; 82948; 83036; 83735; 84100; 85025; 85027; 87641; 93005; 96361; 96372; 96374; 96375; 99285; A9270; G0378; J1650; J1815; J3480; J7030

== ENCOUNTER 2025-07-27 21:35 | Emergency (ER) | payer OTHER, SELFPAY ==
--- NOTE | ~2025-07-27 | XR_ITS ---
XR hand LT min 3V INDICATION: pain, injury . COMPARISON: None. FINDINGS: Frontal, lateral, and oblique views of the left hand demonstrate no acute fracture or dislocation. IMPRESSION: No acute fracture or dislocation. Reviewed, dictated and finalized at location S.
--- NOTE | ~2025-07-27 | XR_ITS ---
XR wrist LT min 3V INDICATION: pian, injury . COMPARISON: None. FINDINGS: Frontal, lateral and oblique views of the left wrist were obtained. No acute fracture is seen. IMPRESSION: No acute fracture or dislocation. Reviewed, dictated and finalized at location S.
--- OUTSIDE RECORDS SUMMARY | 2025-07-27 21:37 | XMS_ITS | Encounter Summary ---
Author Organization [facility] [employer] Address [address] [facility] [place] [address] Care Team Providers Care Outside Sales Consultant Name Role Phone Genia Epps MD Unavailable [phone] Karen Hook MD Primary Care Provider [phone] Genia Epps MD Primary Care Provider [phone] Unknown, Provider Primary Care Provider Unavaila Bartolo Ovalle DO Primary Care Provider Reason for Visit * Reason Onset Date Comments MEDICATION REFILL 03/27/2013 Encounter Details Date Type Department Care Team (Late st Contact Info) Description 03/27/2013 Refill [facility] - Endocrinology [address] [place] [address] Gideon Bryant MD [address] [place] [address] MEDICATION REFILL Social History Tobacco Use Types Packs/Day Years Used Date Smoking Tobacco: Never Alcohol Use Standard Drinks/Week Comments No 0 (1 standard drink = 0.6 oz pur e alcohol) Sex and Gender Information Value Date Recorded Sex Assigned at Not on file Legal Sex Male 8:23 AM COMBINATION TECHNICIAN Gender Identity Not on file Sexual Orientation Not on file documented as of this encounter Plan of Treatment Not on file documented as of this encounter Visit Diagnoses Not on filedocumented in this encounter Additional Health Concerns Infection Onset Date Last Indicated Resolved Time COVID-19 Under Investigation 11/05/2020 11/05/2020 11/05/2020 3:52 PM COMBINATION TECHNICIAN COVID-19 Under Investigation 11/14/2021 11/14/2021 11/25/2021 4:33 AM COMBINATION TECHNICIAN documented as of this encounter Care Teams Outside Sales Consultant Relationship Specialty Start Date End Date Genia Epps MD PCP - Pediatrics Pediatrics 11/22/11 10/02/23 Karen Hook MD PCP - General Pediatrics 09/21/12 01/26/14 Genia Epps MD PCP - General Pediatrics 04/12/20 10/02/23 Unknown, Provider PCP - General 11/07/23 12/05/23 Bartolo Aviles DO PCP - General 12/06/23 documented as of this encounter
--- OUTSIDE RECORDS SUMMARY | 2025-07-27 21:37 | XMS_ITS | Clinical Summary ---
Author Organization [facility] [email or web address] Address [address] [facility] [place] [address] Care Team Providers Care Supervisor Publications Name Role Phone Bartolo Aviles DO Primary Care Provider Source Comments [facility] [email or web address],non-owned Affiliates and Associated Physician Practices is amultiple site organization consisting of ambulatory clinics and hospital sitesin [place], [place], [place] and [place]. This disclosure is being madepursuant to the Care Everywhere program and may not contain all information available regarding this patient. Last updated 18.[facility] [email or web address] Allergies No known active allergies Medications * Be aware that medications may not be up to date on this document. Alwaysverify current medications with the patient. Blood Glucose Monitoring Suppl ([employer]CH VERIO) W/DEVICE KIT Use 1 Each as [...] strip 12/28/19 22 Active Continuous Blood Gluc Superintendent Local (DEXCOM G6 EXHIBIT ARTIST) DEVIIndications:T ype 1 diabetes mellitus with hyperglycemia (HCC) Use 1 Each as directed 1 Each 12/30/19 22 Active Insulin Pen Needle (TRUEplus Pen Deep Run) 32G X 4 MM MISCIndications:T ype 1 diabetes mellitus without complication, with long-term current use of insulin ([facility]) Use 1 Each as directed Use to administer insulin 4-6 times per day 200 Each 05/09/20 23 Active Continuous Blood Gluc Sensor (Dexcom G6 Sensor) MISCIndications:T ype 1 diabetes mellitus without complication, with long-term current use of insulin ([facility]) Use 1 Each every 10 days 3 Each 06/26/20 23 Active Continuous Blood Gluc Transmit (Dexcom G6 Transmitter) MISCIndications:T ype 1 diabetes mellitus without complication, with long-term current use of insulin ([facility]) Use 1 Each Every 90 days 1 [...] complication, with long-term current use of insulin ([facility]) Test urine when blood sugar is 250 or higher or when Ha[place] is sick. 100 strip 11 03/11/20 24 Active Glucagon (Baqsimi Two Pack) 3 MG/DOSE POWDIndications:T ype 1 diabetes mellitus with hyperglycemia (HCC) [place] 1 Each into the nose as directed [...] & Plan (03/07/2021 10:05 AM CDT): 1) [email or web address] 2) in the meantime you need to take correction doses every 2 hours until blood sugar is in range 3) plan on pump start over the summer 4) return in 3-4 months Assessment & Plan (12/03/2020 2:10 PM MANAGER PRIVACY): 1) take correction dose every 2 hours when glucose is not in range 2) re-evaluate carb counting 3) call in one week to review sensor 4) return in 3 months for Anita Assessment & Plan (08/31/2020 4:12 PM MANAGER PRIVACY): 1) continue current insulin doses 2) I [...] anita Assessment & Plan (10/17/2019 8:05 AM MANAGER PRIVACY): 1) change correction dose to 2 per 50 over 150 151-200 add 2 201-250 add 4 251-300 add 6 301-350 add 8 351-400 add 10 Over 401 add 12 admelog 2) check blood sugar 4 times daily 3) call in blood sugars in one week 4) return in [address] Dumotn Assessment & Plan (07/11/2019 9:16 AM CDT): [...] anita Assessment & Plan (09/20/2018 8:57 AM MANAGER PRIVACY): 1) must check blood sugar at least [...] meal snacking without taking insulin. Per the [place] [employer] practice guidelines [Diabetes Care 2015 [...] office visit) Follow-up by telephone (office number: [phone], option #4 or fax number: [phone]) in 2 weeks to review Haider's interval home blood glucose records and make any additional insulin dose adjustments. Return appointment in 3 months Assessment & Plan (12/04/2016 8:48 AM MANAGER PRIVACY): Lantus 20 units at 9 p.m. Novolog/humalo [...] meal snacking without taking insulin. Per the [place] [employer] practice guidelines [Diabetes Care 2015 [...] office visit) Follow-up by telephone (office number: [phone], option #4 or fax number: [phone]) in 2 weeks to review [place]'s interval [...] meal snacking without taking insulin. Per the [place] [employer] practice guidelines [Diabetes Care 2015 [...] office visit) Follow-up by telephone (office number: [phone], option #4 or fax number: [phone]) in 2 weeks to review [place]'s interval [...] meal snacking without taking insulin. Per the [place] [employer] practice guidelines [Diabetes Care 2015 [...] office visit) Follow-up by telephone (office number: [phone], option #4 or fax number: [phone]) in 2 weeks to review [place]'s interval [...] meal snacking without taking insulin. Per the [place] [employer] practice guidelines [Diabetes Care 2015 [...] office visit) Follow-up by telephone (office number: [phone], option #4 or fax number: [phone]) in 2 weeks to review [place]'s interval home blood glucose records and make any additional insulin dose adjustments. Return appointment in 3 months Assessment & Plan (11/23/2015 2:16 PM MANAGER PRIVACY): Lantus 17 units at 9 p.m. Novolog/humalo [...] meal snacking without taking insulin. Per the [place] [employer] practice guidelines [Diabetes Care 2015 [...] office visit) Follow-up by telephone (office number: [phone], option #4 or fax number: [phone]) in 2 weeks to review [place]'s interval home blood glucose records and make any additional insulin dose adjustments. Return appointment in 3 months Assessment & Plan (08/27/2015 12:49 PM MANAGER PRIVACY): 1) decrease dinner to 1:7 2) call [...] in blood sugars in one week to [phone] option 4 6) return in 3 months [...] in blood sugars in 1 week to [phone] option 4 5) return in 3 months for anita or Dr. Bryant 6) decrease lunch to 1:10 Assessment & Plan (11/10/2014 2:12 PM MANAGER PRIVACY): Lantus 11 units at 10 p.m. Novolog/humalo [...] office visit) Follow-up by telephone (office number: [phone], option #4 or fax number: [phone]) in 2 weeks to review [place]'s interval [...] office visit) Follow-up by telephone (office number: [phone], option #4 or fax number: [phone]) in 1 weeks to review [place]'s interval [...] office visit) Follow-up by telephone (office number: [phone], option #4 or fax number: [phone]) in 2 weeks to review [facility]'s interval home blood glucose records and make [...] times. 8. Follow-up by telephone (office number: [phone], option #4 or fax number: [phone]) in 1-2 weeks to review [place]'s interval home blood glucose records and make any additional insulin dose adjustments. 9. Return appointment in 3 months Assessment & Plan (10/28/2013 12:06 PM MANAGER PRIVACY): Lantus 8.5 units at bedtime Rotate insulin [...] all times. Follow-up by telephone (office number: [phone], option #4 or fax number: [phone]) in 1-2 weeks to review [place]'s interval [...] all times. Follow-up by telephone (office number: [phone], option #4 or fax number: [phone]) in 1-2 weeks to review [facility]'s interval [...] on file Legal Sex Male 8:23 AM MANAGER PRIVACY Gender Identity Not on file Sexual Orientation Not on file Last Filed Vital Signs Vital Sign Reading Time Taken Comments Blood Pressure 130/78 03/11/2024 9:54 AM CDT Pulse 74 04/14/2021 10:31 AM CDT Temperature 37.1 C (98.8 F) 10/01/2023 3:53 PM MANAGER PRIVACY Respiratory Rate 22 04/02/2021 8:13 PM CDT [...] 06/11/2024 03/11/2024, , 06/26/2023, Additional history exists DEPRESSION SCREENING 10/15/2024 11/13/2023, 03/23/2023, 12/15/2021 DIABETES - URINE PROTEIN SCREENING 10/15/2024 12/22/2022, 09/15/2021, 08/31/2020, Additional history exists DIABETES-SERUM CREATININE 11/13/20242023, 04/02/2021, 04/02/2021, Additional history exists DIABETES RETINOPATHY SCREENING 12/23/2024 0 12/23/2022 (Done Outside Per Report) DTAP/TDAP/TD VACCINES (7 - T d or Tdap) 03/22/2025 03/22/2015, 07/07/2009, 09/17/2006, Additional history exists COVID-19 VACCINE (4 2024-2 6 season) 2025 10/19/2021, 01/12/2021, 12/22/2020 INFLUENZA VACCINE (#1) 2025 , 07/28/2021, 08/31/2020, Additional history exists ZOSTER VACCINE (1 of 2) 2054 HEPATITIS B VACCINE Completed 09/17/2006, 2004, 2004 HIB VACCINE Completed 09/17/2006, 12/13, 2004, Additional history exists HPV VACCINE Completed 09/24/2015, 05/15, 03/22/2015 MENINGOCOCCAL GROUPS A/C/Y/W VACCINE Completed 05/12/2020, 05/24/2015 Goals Goal Patient Goal Type Associated Problems Recent Progress Patient-Stated? 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 Essential hypertension MICROALB/CREAT RATIO URINE RANDOM PANEL Routine 12/22/2022 11:36 AM MANAGER PRIVACY Type 1 diabetes mellitus with hyperglycemia from Last 3 Months or Most Recently Relevant to Health Maintenance Results * (ABNORMAL) HEMOGLOBIN A1C - POCT INTERFACED (03/11/2024 9:56 AM CDT) Hemoglobin A1C POCT 9.7(H) <5.7 % 03/11/2024 10:04 AM T [facility] Estimated Average Glucose 232 mg/dL 03/11/2024 10:04 AM T [facility] Blood BLOOD SPECIMEN / Unknown 03/11/2024 9:56 AM CDT 03/11/2024 10:04 AM CDT Narrative [facility] - 03/11/2024 10:04 AM CDT [...] Standardization Program (NGSP) certified method. Ambar Wong TRADING ANALYST-COUNTER MANAGER LAB - POINT OF CARE ORD ERABLES Final Result [facility] [address] [place] [id number] * (ABNORMAL) BASIC METABOLIC PANEL (CALCIUM TOTAL) (11/13/2023 11:39 AM MANAGER PRIVACY) BUN 14 7 - 26 mg/dL 11/13/2023 1:00 PM [facility] Creatinine 0.72 0.71 - 1.16 mg/dL 11/13/2023 1:00 PM [facility] Sodium 141 136 - 145 mmol/L 11/13/2023 1:00 PM [facility] Potassium 4.0 3.5 - 4.5 mmol/L 11/13/2023 1:00 PM [facility] Chloride 104 98 - 107 mmol/L 11/13/2023 1:00 PM [facility] CO2 28 22 - 29 mmol/L 11/13/2023 1:00 PM [facility] Glucose 43(LL) 70 - 115 mg/dL 11/13/2023 1:00 PM [facility] Calcium 9.7 8.4 - 10.2 mg/dL 11/13/2023 1:00 PM [facility] Anion Gap 9 6 - 16 11/13/2023 1:00 PM [facility] BUN/Creatinine Ratio 19 7 - 23 11/13/2023 1:00 PM [facility] Osmolality Calculated 289 275 - 295 mOsm/kg 11/13/2023 1:00 PM [facility] eGFR by CKD-EPI >90 >=90 mL/min/1.7 3 m2 11/13/2023 1:00 PM [facility] Blood BLOOD SPECIMEN / Unknown Lab Venipuncture / Unknown 11/13/2023 11:39 AM [facility] 11/13/2023 11:49 AM [facility] us Liat Dumont DO LAB - CHEMISTRY ORDERABLES Final Result [address] [address], [facility] [phone] * MICROALB/CREAT RATIO URINE RANDOM PANEL (12/22/2022 11:36 AM [facility]) Albumin Random Urine <5.0 Not Established ug/mL 12/22/2022 12:31 PM [facility] Creatinine Urine 28 Not Established mg/dL 12/22/2022 12:31 PM [facility] Urine Albumin/Creati nine Ratio <18 <30 mg/g 12/22/2022 12:31 PM [facility] Albumin/Creati nine Ratio Urine See Comment <30 mg/g 12/22/2022 12:31 PM [facility] Comment:Unable to calculate the Urine Albumin/Creatinine Ratio due to one or more analyte concentration(s) being outside the measuring limits of the instrument. Urine URINE SPECIMEN OBTAINED BY CLEAN CATCH PROCEDURE / Unknown Collection / Unknown 12/22/2022 11:36 AM MANAGER PRIVACY 12/22/2022 11:43 AM MANAGER PRIVACY Ambar Wong TRADING ANALYST-COUNTER MANAGER LAB - URINE CHEMISTRY O RDERABLES Final Result [facility] [address] [place] [address], [facility] [phone] from Last 3 Months or Most Recently Relevant to Health Maintenance Insurance [facility] Advance Directives * Full Code (Latest Code Status on File) Date Activated Date Inactivated Comments 04/02/2021 4:22 AM 04/02/2021 11:05 PM Care Teams Supervisor Publications Relationship Specialty Start Date End Date Bartolo Aviles DO PCP - General 12/06/23
--- OUTSIDE RECORDS SUMMARY | 2025-07-27 21:37 | XMS_ITS | Encounter Summary ---
Author Organization [facility] [employer] Address [address] [place] [address] Care Team Providers Care Step Down Specialist Name Role Phone Genia Epps MD Unavailable [phone] Genia Epps MD Primary Care Provider [phone] Unknown, Provider Primary Care Provider Unavaila Bartolo Ovalle DO Primary Care Provider Encounter Details Date Type Department Care Team (Late st Contact Info) Description 04/18/2021 Telephone [facility] Pediatrics - Endocrinology [address] [place] [address] Liat Dumont DO [facility] [place] [address] Social History Tobacco Use Types Packs/Day Years [...] on file Legal Sex Male 8:23 AM PLANNING OFFICIAL Gender Identity Not on file Sexual Orientation [...] already aware, going to pharmacy soon to scrap picker.She did not receive a notification when [...] car Lifestyle On track( 022 11:33 AM PLANNING OFFICIAL) No Elli Lainez RN documented as of this encounter Visit Diagnoses Not on filedocumented in this encounter Additional Health Concerns Infection Onset Date Last Indicated Resolved Time COVID-19 Under Investigation 11/14/2021 11/14/2021 11/25/2021 4:33 AM PLANNING OFFICIAL documented as of this encounter Care Teams Step Down Specialist Relationship Specialty Start Date End Date Genia Epps MD PCP - Pediatrics Pediatrics 11/22/11 10/02/23 Genia Epps MD PCP - General Pediatrics 04/12/20 10/02/23 Unknown, Provider PCP - General 11/07/23 12/05/23 Bartolo Aviles DO PCP - General 12/06/23 documented as of this encounter
--- OUTSIDE RECORDS SUMMARY | 2025-07-27 21:37 | XMS_ITS | Encounter Summary ---
Author Organization [facility] [employer] Address [address] [facility] [place] [address] Care Team Providers Care [place] Limousine Name Role Phone Genia Epps MD Unavailable [phone] Genia Epps MD Primary Care Provider [phone] Unknown, Provider Primary Care Provider Unavaila Bartolo Ovalle DO Primary Care Provider Reason for Visit * Reason Onset Date Comments MEDICATION REFILL 12/27/2021 Encounter Details Date Type Department Care Team (Late st Contact Info) Description 12/27/2021 Refill [facility] Pediatrics - Diabetes [facility] [address] [place] [address] Ambar Wong, UTILITY HAND-LAUNDRY SORTER [facility] [place] [address] MEDICATION REFILL Social History Tobacco Use Types [...] on file Legal Sex Male 8:23 AM CLIENT FINANCE ANALYST Gender Identity Not on file Sexual Orientation Not on file COVID-19 Exposure Response Date Recorded In the last month, have you been in contact with someone who was confirmed or suspected to have Coronavirus / COVID-19? No / Unsure 12/15/2021 1:21 PM CLIENT FINANCE ANALYST documented as of this encounter Functional Status [...] car Lifestyle On track( 022 11:33 AM CLIENT FINANCE ANALYST) No Elli Lainez RN documented as of this encounter Visit Diagnoses Diagnosis Uncontrolled type 1 diabetes mellitus with hyperglycemia (HCC) documented in this encounter Care Teams [place] [employer] Relationship Specialty Start Date End Date Genia Epps MD PCP - Pediatrics Pediatrics 2/8/12 12/19/23 Genia Epps MD PCP - General Pediatrics 04/12/20 10/02/23 Unknown, Provider PCP - General 11/07/23 12/05/23 Bartolo Aviles DO PCP - General 12/06/23 documented as of this encounter
--- OUTSIDE RECORDS SUMMARY | 2025-07-27 21:37 | XMS_ITS | Encounter Summary ---
Author Organization [facility] [employer] Address [address] [facility] [place] [address] Care Team Providers Care Search Engine Optimization Consultant Name Role Phone Genia Epps MD Unavailable [phone] Karen Hook MD Primary Care Provider [phone] Genia Epps MD Primary Care Provider [phone] Unknown, Provider Primary Care Provider Unavaila Bartolo Ovalle DO Primary Care Provider Reason for Visit * Reason Onset Date Comments Letter for School or Work 07/16/2013 Please send changes made to diabetes plan to School RNReina Rios [phone] Encounter Details Date Type Department Care Team (Late st Contact Info) Description 07/16/2013 Telephone [facility] Pediatric[facility] - Diabetes Mgmt [address] [place] [phone] Gideon Bryant MD [address] [place] [address] [phone] Letter for School or Work (Please send changes made to diabetes plan to School RN- Milagros Rios [phone]) Social History Tobacco Use Types Packs/Day Years Used Date Smoking Tobacco: Never Alcohol Use Standard Drinks/Week Comments No 0 (1 standard drink = 0.6 oz pur e alcohol) Sex and Gender Information Value Date Recorded Sex Assigned at Not on file Legal Sex Male 8:23 AM INSIGHTS MANAGER Gender Identity Not on file Sexual Orientation Not on file documented as of this encounter Plan of Treatment Not on file documented as of this encounter Visit Diagnoses Not on filedocumented in this encounter Additional Health Concerns Infection Onset Date Last Indicated Resolved Time COVID-19 Under Investigation 11/05/2020 11/05/2020 11/05/2020 3:52 PM INSIGHTS MANAGER COVID-19 Under Investigation 11/14/2021 11/14/2021 11/25/2021 4:33 AM INSIGHTS MANAGER documented as of this encounter Care Teams Search Engine Optimization Consultant Relationship Specialty Start Date End Date Genia Epps MD PCP - Pediatrics Pediatrics 11/22/11 10/02/23 Karen Hook MD PCP - General Pediatrics 09/21/12 01/26/14 Genia Epps MD PCP - General Pediatrics 04/12/20 10/02/23 Unknown, Provider PCP - General 11/07/23 12/05/23 Bartolo Aviles DO PCP - General 12/06/23 documented as of this encounter
--- OUTSIDE RECORDS SUMMARY | 2025-07-27 21:37 | XMS_ITS | Encounter Summary ---
Author Organization [facility] [employer] Address [address] [facility] [place] [address] Care Team Providers Care Double End Tenon Operator Name Role Phone Genia Epps MD Unavailable [phone] Genia Epps MD Primary Care Provider [phone] Karen Hook MD Primary Care Provider [phone] Genia Epps MD Primary Care Provider [phone] Unknown, Provider Primary Care Provider Unavaila Bartolo Ovalle DO Primary Care Provider Reason for Visit * Reason Onset Date Comments MEDICATION REFILL 04/21/2012 Encounter Details Date Type Department Care Team (Late st Contact Info) Description 04/21/2012 Refill [facility] Pediatrics - Diabetes Mgmt [address] [place] [phone] Gideon Bryant MD [address] [place] [address] [phone] MEDICATION REFILL Social History Tobacco Use Types Packs/Day Years Used Date Smoking Tobacco: Never Assessed Sex and Gender Information Value Date Recorded Sex Assigned at Not on file Legal Sex Male 8:23 AM EXECUTIVE CASINO HOST Gender Identity Not on file Sexual Orientation Not on file documented as of this encounter Plan of Treatment Not on file documented as of this encounter Visit Diagnoses Not on filedocumented in this encounter Additional Health Concerns Infection Onset Date Last Indicated Resolved Time COVID-19 Under Investigation 11/05/2020 11/05/2020 11/05/2020 3:52 PM EXECUTIVE CASINO HOST COVID-19 Under Investigation 11/14/2021 11/14/2021 11/25/2021 4:33 AM EXECUTIVE CASINO HOST documented as of this encounter Care Teams Double End Tenon Operator Relationship Specialty Start Date End Date [...]
--- OUTSIDE RECORDS SUMMARY | 2025-07-27 21:37 | XMS_ITS | Encounter Summary ---
Author Organization [facility] [employer] Address [address] [facility] [place] [address] Care Team Providers Care Bioinformatics Associate Name Role Phone Genia Epps MD Unavailable [phone] Genia Epps MD Primary Care Provider [phone] Unknown, Provider Primary Care Provider Unavaila Bartolo Ovalle DO Primary Care Provider Encounter Details Date Type Department Care Team (Late st Contact Info) Description 04/19/2021 Telephone [facility] Pediatrics - Diabetes [address] [address] Liat Dumont DO [address] [place] [address] Social History Tobacco Use Types Packs/Day Years [...] on file Legal Sex Male 8:23 AM BIG DATA ADMIN Gender Identity Not on file Sexual Orientation [...] 04/19/2021 8:04 AM CDT Received approval for [employer] system x 1 year from [employer]. documented in this encounter Plan of Treatment Not on file documented as of this encounter Goals Goal Patient Goal Type Associated Problems Recent Progress Patient-Stated? Author Use safety retraint in car Lifestyle On track( 022 11:33 AM BIG DATA ADMIN) Elil Emerson RN documented as of this encounter Visit Diagnoses Not on filedocumented in this encounter Additional Health Concerns Infection Onset Date Last Indicated Resolved Time COVID-19 Under Investigation 11/14/2021 11/14/2021 11/25/2021 4:33 AM BIG DATA ADMIN documented as of this encounter Care Teams Bioinformatics Associate Relationship Specialty Start Date End Date Genia Epps MD PCP - Pediatrics Pediatrics 11/22/11 10/02/23 Genia Epps MD PCP - General Pediatrics 04/12/20 10/02/23 Unknown, Provider PCP - General 11/07/23 12/05/23 Bartolo Aviles DO PCP - General 12/06/23 documented as of this encounter
--- OUTSIDE RECORDS SUMMARY | 2025-07-27 21:37 | XMS_ITS | Encounter Summary ---
Author Organization [facility] Address [address] [place] [address] Care Team Providers Care Oval Or Circular Glass Cutter Name Role Phone Genia Epps MD Unavailable [phone] Genia Epps MD Primary Care Provider [phone] Unknown, Provider Primary Care Provider Unavaila Bartolo Ovalle DO Primary Care Provider Encounter Details Date Type Department Care Team (Late st Contact Info) Description 04/28/2020 Telephone [facility] - Diabetes [address] [address] Genia Pires, RN Social History Tobacco Use Types Packs/Day Years Used Date Smoking Tobacco: Passive Smo ke Exposure - Never Smoker Smokeless Tobacco: Never Alcohol Use Standard Drinks/Week Comments No 0 (1 standard drink = 0.6 oz pur e alcohol) Sex and Gender Information Value Date Recorded Sex Assigned at Not on file Legal Sex Male 8:23 AM MANAGER OF IT Gender Identity Not on file Sexual Orientation [...] Lifestyle On track( 022 11:33 AM MANAGER OF IT) Elli Emerson RN documented as of this encounter Visit Diagnoses Not on filedocumented in this encounter Additional Health Concerns Infection Onset Date Last Indicated Resolved Time COVID-19 Under Investigation 11/05/2020 11/05/2020 11/05/2020 3:52 PM MANAGER OF IT COVID-19 Under Investigation 11/14/2021 11/14/2021 11/25/2021 4:33 AM MANAGER OF IT documented as of this encounter Care Teams Oval Or Circular Glass Cutter Relationship Specialty Start Date End Date Genia Epps MD PCP - Pediatrics Pediatrics 11/22/11 10/02/23 Genia Epps MD PCP - General Pediatrics 04/12/20 10/02/23 Unknown, Provider PCP - General 11/07/23 12/05/23 Bartolo Aviles DO PCP - General 12/06/23 documented as of this encounter
--- OUTSIDE RECORDS SUMMARY | 2025-07-27 21:37 | XMS_ITS | Encounter Summary ---
Author Organization [facility] [employer] Address [address] [facility] [place] [address] Care Team Providers Care Glassie Name Role Phone Genia Epps MD Unavailable [phone] Genia Epps MD Primary Care Provider [phone] Karen Hook MD Primary Care Provider [phone] Genia Epps MD Primary Care Provider [phone] Unknown, Provider Primary Care Provider Unavaila Bartolo Ovalle DO Primary Care Provider Reason for Visit * Reason Onset Date Comments MEDICATION REFILL 04/21/2012 Encounter Details Date Type Department Care Team (Late st Contact Info) Description 04/21/2012 Refill [facility] Pediatrics - Diabetes Mgmt [address] [place] [address] Gideon Bryant MD [address] [place] [id number] MEDICATION REFILL Social History Tobacco Use Types Packs/Day Years Used Date Smoking Tobacco: Never Assessed Sex and Gender Information Value Date Recorded Sex Assigned at Not on file Legal Sex Male 8:23 AM CLINICAL DOCUMENTATION SPECIALIST Gender Identity Not on file Sexual [...] Under Investigation 11/05/2020 11/05/2020 11/05/2020 3:52 PM CLINICAL DOCUMENTATION SPECIALIST COVID-19 Under Investigation 11/14/2021 11/14/2021 11/25/2021 4:33 AM CLINICAL DOCUMENTATION SPECIALIST documented as of this encounter Care Teams Glassie Relationship Specialty Start Date End Date Genia [...]
--- OUTSIDE RECORDS SUMMARY | 2025-07-27 21:37 | XMS_ITS | Encounter Summary ---
Author Organization [facility] [employer] Address [address] [facility] [place] [address] Care Team Providers Care Can Dragger Name Role Phone Genia Epps MD Unavailable [phone] Genia Epps MD Primary Care Provider [phone] Unknown, Provider Primary Care Provider Unavaila Bartolo Ovalle DO Primary Care Provider Encounter Details Date Type Department Care Team (Late st Contact Info) Description 09/06/2021 Telephone [facility] Pediatrics - Diabetes [address] [address] Liat Dumont DO [address] [place] [address] Social History Tobacco Use Types Packs/Day Years [...] on file Legal Sex Male 8:23 AM COMPUTER APPLICATIONS INSTRUCTOR Gender Identity Not on file Sexual Orientation [...] Karime Browne RN - 09/06/2021 11:54 AM COMPUTER APPLICATIONS INSTRUCTOR Received approval for [employer] sensors through 10/14/21. Pharmacy notified. UTER APPLICATIONS INSTRUCTOR documented in this encounter Plan of Treatment Not on file documented as of this encounter Goals Goal Patient Goal Type Associated Problems Recent Progress Patient-Stated? Author Use safety retraint in car Lifestyle On track( 022 11:33 AM COMPUTER APPLICATIONS INSTRUCTOR) Elli Emerson RN documented as of this encounter Visit Diagnoses Not on filedocumented in this encounter Additional Health Concerns Infection Onset Date Last Indicated Resolved Time COVID-19 Under Investigation 11/14/2021 11/14/2021 11/25/2021 4:33 AM COMPUTER APPLICATIONS INSTRUCTOR documented as of this encounter Care Teams Can Dragger Relationship Specialty Start Date End Date Genia Epps MD PCP - Pediatrics Pediatrics 11/22/11 10/02/23 Genia Epps MD PCP - General Pediatrics 04/12/20 10/02/23 Unknown, Provider PCP - General 11/07/23 12/05/23 Bartolo Aviles DO PCP - General 12/06/23 documented as of this encounter
--- OUTSIDE RECORDS SUMMARY | 2025-07-27 21:37 | XMS_ITS | Encounter Summary ---
Author Organization [facility] Address [address] [facility] [place] [address] Care Team Providers Care Twister Tender Name Role Phone Genia Epps MD Unavailable [phone] Genia Epps MD Primary Care Provider [phone] Unknown, Provider Primary Care Provider Unavaila Bartolo Ovalle DO Primary Care Provider Reason for Visit * Reason Onset Date Comments MEDICATION REFILL 08/03/2015 Encounter Details Date Type Department Care Team (Late st Contact Info) Description 08/03/2015 Refill [facility] Pediatrics - Endocrinology [address] [place] [address] Rafa Farias APRN-PRODUCTION INTERNSHIP [address] [place] [address] MEDICATION REFILL Social History Tobacco Use Types Packs/Day Years Used Date Smoking Tobacco: Never Alcohol Use Standard Drinks/Week Comments No 0 (1 standard drink = 0.6 oz pur e alcohol) Sex and Gender Information Value Date Recorded Sex Assigned at Not on file Legal Sex Male 8:23 AM ROCKET PROPELLANT PLANT SUPERVISOR Gender Identity Not on file Sexual Orientation Not on file documented as of this encounter Plan of Treatment Not on file documented as of this encounter Goals Goal Patient Goal Type Associated Problems Recent Progress Patient-Stated? Author Use safety retraint in car Lifestyle On track( 022 11:33 AM ROCKET PROPELLANT PLANT SUPERVISOR) No Elli Lainez RN documented as of this encounter Visit Diagnoses Not on filedocumented in this encounter Additional Health Concerns Infection Onset Date Last Indicated Resolved Time COVID-19 Under Investigation 11/05/2020 11/05/2020 11/05/2020 3:52 PM ROCKET PROPELLANT PLANT SUPERVISOR COVID-19 Under Investigation 11/14/2021 11/14/2021 11/25/2021 4:33 AM ROCKET PROPELLANT PLANT SUPERVISOR documented as of this encounter Care Teams Twister Tender Relationship Specialty Start Date End Date Genia Epps MD PCP - Pediatrics Pediatrics 11/22/11 10/02/23 Genia Epps MD PCP - General Pediatrics 04/12/20 10/02/23 Unknown, Provider PCP - General 11/07/23 12/05/23 Bartolo Aviles DO PCP - General 12/06/23 documented as of this encounter
--- OUTSIDE RECORDS SUMMARY | 2025-07-27 21:37 | XMS_ITS | Encounter Summary ---
Author Organization [facility] Address [address] [facility] [place] [address] Care Team Providers Care Right Of Way Maintenance Supervisor Name Role Phone Genia Epps MD Unavailable [phone] Karen Hook MD Primary Care Provider [phone] Genia Epps MD Primary Care Provider [phone] Unknown, Provider Primary Care Provider Bartolo Ortega DO Primary Care Provider Encounter Details Date Type Department Care Team (Late st Contact Info) Description 03/08/2013 [facility] Outpatient Visit CG DEFAULT [address] [place] [address] Unknown, Provider Social History Tobacco Use Types Packs/Day Years Used Date Smoking Tobacco: Never Alcohol Use Standard Drinks/Week Comments No 0 (1 standard drink = 0.6 oz pur e alcohol) Sex and Gender Information Value Date Recorded Sex Assigned at Not on file Legal Sex Male 8:23 AM COMBINATION MACHINE TOOL OPERATOR Gender Identity Not on file Sexual Orientation Not on file documented as of this encounter Plan of Treatment Not on file documented as of this encounter Visit Diagnoses Not on filedocumented in this encounter Additional Health Concerns Infection Onset Date Last Indicated Resolved Time COVID-19 Under Investigation 11/05/2020 11/05/2020 11/05/2020 3:52 PM COMBINATION MACHINE TOOL OPERATOR COVID-19 Under Investigation 11/14/2021 11/14/2021 11/25/2021 4:33 AM COMBINATION MACHINE TOOL OPERATOR documented as of this encounter Care Teams Right Of Way Maintenance Supervisor Relationship Specialty Start Date End Date Genia Epps MD PCP - Pediatrics Pediatrics 11/22/11 10/02/23 Karen Hook MD PCP - General Pediatrics 09/21/12 01/26/14 Genia Epps MD PCP - General Pediatrics 04/12/20 10/02/23 Unknown, Provider PCP - General 11/07/23 12/05/23 Bartolo Aviles DO PCP - General 12/06/23 documented as of this encounter
--- OUTSIDE RECORDS SUMMARY | 2025-07-27 21:37 | XMS_ITS | Encounter Summary ---
Author Organization [facility] [employer] Address [address] [facility] [place] [address] Care Team Providers Care Hotel Houseman Name Role Phone Genia Epps MD Unavailable [phone] Genia Epps MD Primary Care Provider [phone] Unknown, Provider Primary Care Provider Unavaila Bartolo Ovalle DO Primary Care Provider Reason for Visit * Reason Onset Date Comments General 09/21/2020 Encounter Details Date Type Department Care Team (Late st Contact Info) Description 09/21/[address] [facility] Pediatrics - Diabetes [id number] [place] [address] Rafa Farias APRN-JAHAIRA [address] [place] [address] General Social History Tobacco Use Types Packs/Day [...] on file Legal Sex Male 8:23 AM OVERNIGHT CAREGIVER Gender Identity Not on file Sexual Orientation Not on file COVID-19 Exposure Response Date Recorded In the last month, have you been in contact with someone who was confirmed or suspected to have Coronavirus / COVID-19? 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 They will call us once that's done so that we can send an invitation to share. Advised contact [employer] for questions about use, she agreed. NIGHT CAREGIVER documented in this encounter Plan of Treatment Not on file documented as of this encounter Goals Goal Patient Goal Type Associated Problems Recent Progress Patient-Stated? Author Use safety retraint in car Lifestyle On track( 022 11:33 AM OVERNIGHT CAREGIVER) Elli Emerson, ALYX documented as of this encounter Visit Diagnoses Not on filedocumented in this encounter Additional Health Concerns Infection Onset Date Last Indicated Resolved Time COVID-19 Under Investigation 11/05/2020 11/05/2020 11/05/2020 3:52 PM OVERNIGHT CAREGIVER COVID-19 Under Investigation 11/14/2021 11/14/2021 11/25/2021 4:33 AM OVERNIGHT CAREGIVER documented as of this encounter Care Teams Hotel Houseman Relationship Specialty Start Date End Date Genia Epps MD PCP - Pediatrics Pediatrics 11/22/11 10/02/23 Genia Epps MD PCP - General Pediatrics 04/12/20 10/02/23 Unknown, Provider PCP - General 11/07/23 12/05/23 Bartolo Aviles DO PCP - General 12/06/23 documented as of this encounter
--- OUTSIDE RECORDS SUMMARY | 2025-07-27 21:37 | XMS_ITS | Encounter Summary ---
Author Organization [facility] Address [address] [facility] [place] [address] Care Team Providers Care Corn Husker Machine Operator Name Role Phone Genia Epps MD Unavailable [phone] Genia Epps MD Primary Care Provider [phone] Unknown, Provider Primary Care Provider Unavaila Bartolo Ovalle DO Primary Care Provider Reason for Visit * Reason Onset Date Comments MEDICATION REFILL 01/14/2018 Encounter Details Date Type Department Care Team (Late st Contact Info) Description 01/14/2018 Refill [facility] Pediatrics - Endocrinology [address] [place] [address] Rafa Farias APRN-SPECIAL FORCES OFFICER [address] [place] [address] MEDICATION REFILL Social History Tobacco Use Types Packs/Day Years Used Date Smoking Tobacco: Passive Smo ke Exposure - Never Smoker Smokeless Tobacco: Never Alcohol Use Standard Drinks/Week Comments No 0 (1 standard drink = 0.6 oz pur e alcohol) Sex and Gender Information Value Date Recorded Sex Assigned at Not on file Legal Sex Male 8:23 AM BREAK UP WORKER Gender Identity Not on file Sexual Orientation Not on file documented as of this encounter Plan of Treatment Not on file documented as of this encounter Goals Goal Patient Goal Type Associated Problems Recent Progress Patient-Stated? Author Use safety retraint in car Lifestyle On track( 022 11:33 AM BREAK UP WORKER) No Elli Lainez RN documented as of this encounter Visit Diagnoses Diagnosis Type 1 diabetes mellitus with complication (HCC) Type I (juvenile type) diabetes mellitus with unspecified complication, not stated as uncontrolled documented in this encounter Additional Health Concerns Infection Onset Date Last Indicated Resolved Time COVID-19 Under Investigation 11/05/2020 11/05/2020 11/05/2020 3:52 PM BREAK UP WORKER COVID-19 Under Investigation 11/14/2021 11/14/2021 11/25/2021 4:33 AM BREAK UP WORKER documented as of this encounter Care Teams Corn Husker Machine Operator Relationship Specialty Start Date End Date Genia Epps MD PCP - Pediatrics Pediatrics 11/22/11 10/02/23 Genia Epps MD PCP - General Pediatrics 04/12/20 10/02/23 Unknown, Provider PCP - General 11/07/23 12/05/23 Bartolo Aviles DO PCP - General 12/06/23 documented as of this encounter
--- OUTSIDE RECORDS SUMMARY | 2025-07-27 21:37 | XMS_ITS | Encounter Summary ---
Author Organization [facility] Address [address] [place] [address] Care Team Providers Care Local Truck Driver Name Role Phone Genia Epps MD Unavailable [phone] Genia Epps MD Primary Care Provider [phone] Unknown, Provider Primary Care Provider Unavaila Bartolo Ovalle DO Primary Care Provider Reason for Visit * Reason Onset Date Comments MEDICATION REFILL 10/10/2022 Encounter Details Date Type Department Care Team (Late st Contact Info) Description 10/10/2022 [address]ill [facility] Pediatrics - Diabetes [facility] [address] [place] [address] Ambar Wong, STITCHING MACHINE FEEDER OR OFFBEARER-LEGAL BILLER [facility] [place] [address] MEDICATION REFILL Social History Tobacco Use Types [...] on file Legal Sex Male 8:23 AM ELECTRIC MOTOR REPAIRING SUPERVISOR Gender Identity Not on file Sexual Orientation Not on file COVID-19 Exposure Response Date Recorded In the last 10 days, have yo u been in contact with someone who was confirmed or suspected to have Coronavirus/COVID-19? No / Unsure 10/10/2022 9:44 AM ELECTRIC MOTOR REPAIRING SUPERVISOR documented as of this encounter Functional [...] car Lifestyle On track( 022 11:33 AM ELECTRIC MOTOR REPAIRING SUPERVISOR) Elli Emerson RN documented as of this encounter Visit Diagnoses Diagnosis Uncontrolled type 1 diabetes mellitus with hyperglycemia (HCC) documented in this encounter Care Teams Local Truck Driver Relationship Specialty Start Date End Date Genia Epps MD PCP - Pediatrics Pediatrics 11/22/11 10/02/23 Genia Epps MD PCP - General Pediatrics 04/12/20 10/02/23 Unknown, Provider PCP - General 11/07/23 12/05/23 Bartolo Aviles DO PCP - General 12/06/23 documented as of this encounter
--- OUTSIDE RECORDS SUMMARY | 2025-07-27 21:37 | XMS_ITS | Encounter Summary ---
Author Organization [facility] Address [address] [facility] [place] [address] Care Team Providers Care It Consultant Name Role Phone Genia Epps MD Unavailable [phone] Genia Epps MD Primary Care Provider [phone] Unknown, Provider Primary Care Provider Unavaila Bartolo Ovalle DO Primary Care Provider Reason for Visit * Reason Onset Date Comments MEDICATION REFILL 09/21/2017 Encounter Details Date Type Department Care Team (Late st Contact Info) Description 09/21/2017 Refill [facility] Pediatrics - Endocrinology [address] [place] [address] Rafa Farias APRN-ERP ANALYST [address] [place] [address] MEDICATION REFILL Social History Tobacco Use Types Packs/Day Years Used Date Smoking Tobacco: Passive Smo ke Exposure - Never Smoker Smokeless Tobacco: Never Alcohol Use Standard Drinks/Week Comments No 0 (1 standard drink = 0.6 oz pur e alcohol) Sex and Gender Information Value Date Recorded Sex Assigned at Not on file Legal Sex Male 8:23 AM LINSEED OIL TEMPERER Gender Identity Not on file Sexual Orientation Not on file documented as of this encounter Plan of Treatment Not on file documented as of this encounter Goals Goal Patient Goal Type Associated Problems Recent Progress Patient-Stated? Author Use safety retraint in car Lifestyle On track( 022 11:33 AM LINSEED OIL TEMPERER) No Elli Lainez RN documented as of this encounter Visit Diagnoses Diagnosis Type 1 diabetes mellitus without complication, with long-term current use of insulin (HCC) documented in this encounter Additional Health Concerns Infection Onset Date Last Indicated Resolved Time COVID-19 Under Investigation 11/05/2020 11/05/2020 11/05/2020 3:52 PM LINSEED OIL TEMPERER COVID-19 Under Investigation 11/14/2021 11/14/2021 11/25/2021 4:33 AM LINSEED OIL TEMPERER documented as of this encounter Care Teams It Consultant Relationship Specialty Start Date End Date Genia Epps MD PCP - Pediatrics Pediatrics 11/22/11 10/02/23 Genia Epps MD PCP - General Pediatrics 04/12/20 10/02/23 Unknown, Provider PCP - General 11/07/23 12/05/23 Bartolo Aviles DO PCP - General 12/06/23 documented as of this encounter
--- OUTSIDE RECORDS SUMMARY | 2025-07-27 21:37 | XMS_ITS | Encounter Summary ---
Author Organization [facility] [employer] Address [address] [facility] [place] [address] Care Team Providers Care Entomology Teacher Name Role Phone Genia Epps MD Unavailable [phone] Genia Epps MD Primary Care Provider [phone] Unknown, Provider Primary Care Provider Unavaila Bartolo Ovalle DO Primary Care Provider Encounter Details Date Type Department Care Team (Late st Contact Info) Description 05/09/2022 Telephone [facility] Pediatrics - Diabetes [address] [address] Liat Dumont DO [address] [place] [address] Social History Tobacco Use Types Packs/Day Years [...] on file Legal Sex Male 8:23 AM NARROW GAUGE OPERATOR Gender Identity Not on file Sexual [...] 05/09/2022 12:40 PM CDT PA sent to [facility] via [facility] for Dexcom transmitter. * Telephone Encounter - Karime Browne RN - 05/09/2022 7:47 AM CDT Received approval for Dexcom sensors through 05/08/23 from [facility]. documented in this encounter Plan of Treatment Not on file documented as of this encounter Goals Goal Patient Goal Type Associated Problems Recent Progress Patient-Stated? Author Use safety retraint in car Lifestyle On track( 022 11:33 AM NARROW GAUGE OPERATOR) No Elli Lainez, RN documented as of this encounter Visit Diagnoses Not on filedocumented in this encounter Care Teams Entomology Teacher Relationship Specialty Start Date End Date Genia Epps MD PCP - Pediatrics Pediatrics 11/22/11 10/02/23 Genia Epps MD PCP - General Pediatrics 04/12/20 10/02/23 Unknown, Provider PCP - General 11/07/23 12/05/23 Bartolo Aviles DO PCP - General 12/06/23 documented as of this encounter
--- OUTSIDE RECORDS SUMMARY | 2025-07-27 21:37 | XMS_ITS | Clinical Summary ---
Author Organization [facility] Address [address] [place] [address] Care Team Providers Care Express Clerk Name Role Phone Unavailable Primary Care Provider Unavailabl e Immunizations Immunization Administration Dates Next Due Covid-19, Mrna, Lnp-s, Pf, 30 Mcg/0.3 Ml Dose (P fizer) 10/19/2021 Social History Tobacco Use Types Packs/Day Years Used Date Smoking Tobacco: Never Assessed Sex and Gender Information Value Date Recorded Sex Assigned at Not on file Legal Sex Male 9:02 PM LINE HAUL DRIVER Gender Identity Not on file Sexual Orientation Not on file Plan of Treatment Health Maintenance Due Date Last Done Comments Hepatitis C Virus (HCV) Screening 2004 TdaP Immunization 2004 Human Papillomavirus (HPV) Immunization (1 - Male 3-dose series) 2019 Meningococcal B Immunization (1 of 2 - Standard) 2020 Hepatitis B Immunization (1 of 3 - 19+ 3-dose series) 2023 Influenza Immunization (#1) 2025 SARS-COV-2 Immunization (2 - season) 2025 10/19/2021 Respiratory Syncytial Virus (RSV) Immunization (Adult) [...]
--- OUTSIDE RECORDS SUMMARY | 2025-07-27 21:37 | XMS_ITS | Encounter Summary ---
Author Organization [facility] [employer] Address [address] [facility] [place] [address] Care Team Providers Care Fisher Troll Line Name Role Phone Genia Epps MD Unavailable [phone] Genia Epps MD Primary Care Provider [phone] Unknown, Provider Primary Care Provider Unavaila Bartolo Ovalle DO Primary Care Provider Reason for Visit * Reason Onset Date Comments MEDICATION REFILL 12/29/2021 Encounter Details Date Type Department Care Team (Late st Contact Info) Description 12/29/2021 Refill [facility] Pediatrics - Diabetes [facility] [address] [place] [address] Ambar Wong, COLLEGE TEACHER-FORESTRY SCIENTIST [facility] [place] [address] MEDICATION REFILL Social History Tobacco Use Types [...] on file Legal Sex Male 8:23 AM ORE GRADER Gender Identity Not on file Sexual Orientation Not on file COVID-19 Exposure Response Date Recorded In the last month, have you been in contact with someone who was confirmed or suspected to have Coronavirus / COVID-19? No / Unsure 12/15/2021 1:21 PM ORE GRADER documented as of this encounter Functional Status [...] car Lifestyle On track( 022 11:33 AM ORE GRADER) No Elli Lainez RN documented as of this encounter Visit Diagnoses Diagnosis Type 1 diabetes mellitus with hyperglycemia (HCC)- Primary Type I (juvenile type) diabetes mellitus without mention of complication, not stated as uncontrolled documented in this encounter Care Teams Fisher Troll Line Relationship Specialty Start Date End Date Genia Epps MD PCP - Pediatrics Pediatrics 11/22/11 10/02/23 Genia Epps MD PCP - General Pediatrics 04/12/20 10/02/23 Unknown, Provider PCP - General 11/07/23 12/05/23 Bartolo Aviles DO PCP - General 12/06/23 documented as of this encounter
--- OUTSIDE RECORDS SUMMARY | 2025-07-27 21:37 | XMS_ITS | Encounter Summary ---
Author Organization [facility] [employer] Address [address] [place] [address] Care Team Providers Care Power Project Manager Name Role Phone Genia Epps MD Unavailable [phone] Genia Epps MD Primary Care Provider [phone] Unknown, Provider Primary Care Provider Unavaila Bartolo Ovalle DO Primary Care Provider Reason for Visit * Reason Onset Date Comments Refill Request 06/21/2018 Fosinopril Encounter Details Date Type Department Care Team (Late st Contact Info) Description 06/21/2018 Telephone [facility] Pediatrics - Endocrinology [facility] [place] [address] Jeannie Martinez Refill Request (Fosinopril) Social History Tobacco Use Types Packs/Day Years Used Date Smoking Tobacco: Passive Smo ke Exposure - Never Smoker Smokeless Tobacco: Never Alcohol Use Standard Drinks/Week Comments No 0 (1 standard drink = 0.6 oz pur e alcohol) Sex and Gender Information Value Date Recorded Sex Assigned at Not on file Legal 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 Author Use safety retraint in car Lifestyle On track( 022 11:33 AM MILKING MACHINE MECHANIC) No Elli Lainez RN documented as of this encounter Visit Diagnoses Not on filedocumented in this encounter Additional Health Concerns Infection Onset Date Last Indicated Resolved Time COVID-19 Under Investigation 11/05/2020 11/05/2020 11/05/2020 3:52 PM MILKING MACHINE MECHANIC COVID-19 Under Investigation 11/14/2021 11/14/2021 11/25/2021 4:33 AM MILKING MACHINE MECHANIC documented as of this encounter Care Teams Power Project Manager Relationship Specialty Start Date End Date Genia Epps MD PCP - Pediatrics Pediatrics 11/22/11 10/02/23 Genia Epps MD PCP - General Pediatrics 04/12/20 10/02/23 Unknown, Provider PCP - General 11/07/23 12/05/23 Bartolo Aviles DO PCP - General 12/06/23 documented as of this encounter
--- OUTSIDE RECORDS SUMMARY | 2025-07-27 21:37 | XMS_ITS | Encounter Summary ---
Author Organization [facility] [employer] Address [address] [place] [address] Care Team Providers Care Hearing Healthcare Practitioner Name Role Phone Genia Epps MD Unavailable [phone] Genia Epps MD Primary Care Provider [phone] Unknown, Provider Primary Care Provider Unavaila Bartolo Ovalle DO Primary Care Provider Reason for Visit * Reason Onset Date Comments Letter for School or Work 11/23/2015 Encounter Details Date Type Department Care Team (Late st Contact Info) Description 11/23/[address] [facility] - Diabetes [address] [place] [address] Gideon Bryant MD [address] [place] [id number] Letter for School or Work Social History Tobacco Use Types Packs/Day Years Used Date Smoking Tobacco: Never Alcohol Use Standard Drinks/Week Comments No 0 (1 standard drink = 0.6 oz pur e alcohol) Sex and Gender Information Value Date Recorded Sex Assigned at Not on file Legal Sex Male 8:23 AM SCIENTIFIC LINGUIST Gender Identity Not on file Sexual Orientation Not on file documented as of this encounter Plan of Treatment Not on file documented as of this encounter Goals Goal Patient Goal Type Associated Problems Recent Progress Patient-Stated? Author Use safety retraint in car Lifestyle On track( 022 11:33 AM SCIENTIFIC LINGUIST) No Elli Lainez RN documented as of this encounter Visit Diagnoses Not on filedocumented in this encounter Additional Health Concerns Infection Onset Date Last Indicated Resolved Time COVID-19 Under Investigation 11/05/2020 11/05/2020 11/05/2020 3:52 PM SCIENTIFIC LINGUIST COVID-19 Under Investigation 11/14/2021 11/14/2021 11/25/2021 4:33 AM SCIENTIFIC LINGUIST documented as of this encounter Care Teams Hearing Healthcare Practitioner Relationship Specialty Start Date End Date Genia Epps MD PCP - Pediatrics Pediatrics 11/22/11 10/02/23 Genia Epps MD PCP - General Pediatrics 04/12/20 10/02/23 Unknown, Provider PCP - General 11/07/23 12/05/23 Bartolo Aviles DO PCP - General 12/06/23 documented as of this encounter
--- OUTSIDE RECORDS SUMMARY | 2025-07-27 21:37 | XMS_ITS | Encounter Summary ---
Author Organization [facility] [employer] Address [address] [facility] [place] [address] Care Team Providers Care Pharmacy Intake Technician Name Role Phone Genia Epps MD Unavailable [phone] Genia Epps MD Primary Care Provider [phone] Unknown, Provider Primary Care Provider Unavaila Bartolo Ovalle DO Primary Care Provider Reason for Visit * Reason Onset Date Comments MEDICATION REFILL 12/30/2021 Encounter Details Date Type Department Care Team (Late st Contact Info) Description 12/30/2021 Refill [facility] Pediatrics - Diabetes [facility] [address] [place] [address] Ambar Wong, BRIM POUNCER MACHINE OPERATOR-QUALITY TECHNICIAN [facility] [place] [address] MEDICATION REFILL Social History Tobacco Use Types [...] on file Legal 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 No / Unsure 12/15/2021 1:21 PM ECONOMIC ANALYST documented as of this encounter Functional [...] car Lifestyle On track( 022 11:33 AM ECONOMIC ANALYST) No Elli Lainez RN documented as of this encounter Visit Diagnoses Diagnosis Type 1 diabetes mellitus without complication, with long-term current use of insulin (HCC)- Primary documented in this encounter Care Teams Pharmacy Intake Technician Relationship Specialty Start Date End Date Genia Epps MD PCP - Pediatrics Pediatrics 11/22/11 10/02/23 Genia Epps MD PCP - General Pediatrics 04/12/20 10/02/23 Unknown, Provider PCP - General 11/07/23 12/05/23 Bartolo Aviles DO PCP - General 12/06/23 documented as of this encounter
--- OUTSIDE RECORDS SUMMARY | 2025-07-27 21:37 | XMS_ITS | Encounter Summary ---
Author Organization [facility] [employer] Address [address] [facility] [place] [address] Care Team Providers Care Senior Actuarial Analyst Name Role Phone Genia Epps MD Unavailable [phone] Karen Hook MD Primary Care Provider [phone] Genia Epps MD Primary Care Provider [phone] Unknown, Provider Primary Care Provider Liza Bartolo Ovalle DO Primary Care Provider Encounter Details Date Type Department Care Team (Late st Contact Info) Description 05/20/2013 Telephone [facility] Pediatrics - Diabetes [address] 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 Gender Identity Not on file Sexual Orientation Not on file documented as of this encounter Plan of Treatment Not on file documented as of this encounter Visit Diagnoses Not on filedocumented in this encounter Additional Health Concerns Infection Onset Date Last Indicated Resolved Time COVID-19 Under Investigation 11/05/2020 11/05/2020 11/05/2020 3:52 PM PROPERTY CLAIMS MANAGER COVID-19 Under Investigation 11/14/2021 11/14/2021 11/25/2021 4:33 AM PROPERTY CLAIMS MANAGER documented as of this encounter Care Teams Senior Actuarial Analyst Relationship Specialty Start Date End Date Genia Epps MD PCP - Pediatrics Pediatrics 11/22/11 10/02/23 Karen Hook MD PCP - General Pediatrics 09/21/12 01/26/14 Genia Epps MD PCP - General Pediatrics 04/12/20 10/02/23 Unknown, Provider PCP - General 11/07/23 12/05/23 Bartolo Aviles DO PCP - General 12/06/23 documented as of this encounter
--- OUTSIDE RECORDS SUMMARY | 2025-07-27 21:37 | XMS_ITS | Encounter Summary ---
Author Organization [facility] Address [address] [facility] [place] [address] Care Team Providers Care Hearing Officer Name Role Phone Genia Epps MD Unavailable [phone] Genia Epps MD Primary Care Provider [phone] Unknown, Provider Primary Care Provider Unavaila Bartolo Ovlale DO Primary Care Provider Encounter Details Date Type Department Care Team (Late st Contact Info) Description 01/14/2018 Telephone [facility] Pediatrics - Endocrinology [address] 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 Ticket # [id number]. * Telephone Encounter - Peewee Rosas RN - 01/14/2018 9:16 AM CDT PA request faxed to [employer] for Basaglar 100u/ml Kwikpen. documented in this encounter Plan of Treatment Not on file documented as of this encounter Goals Goal Patient Goal Type Associated Problems Recent Progress Patient-Stated? Author Use safety retraint in car Lifestyle On track( 022 11:33 AM SOLE SCRAPER) No Elli Lainez RN documented as of this encounter Visit Diagnoses Not on filedocumented in this encounter Additional Health Concerns Infection Onset Date Last Indicated Resolved Time COVID-19 Under Investigation 11/05/2020 11/05/2020 11/05/2020 3:52 PM SOLE SCRAPER COVID-19 Under Investigation 11/14/2021 11/14/2021 11/25/2021 4:33 AM SOLE SCRAPER documented as of this encounter Care Teams Hearing Officer Relationship Specialty Start Date End Date Genia Epps MD PCP - Pediatrics Pediatrics 11/22/11 10/02/23 Gneia Epps MD PCP - General Pediatrics 04/12/20 10/02/23 Unknown, Provider PCP - General 11/07/23 12/05/23 Bartolo Aviles DO PCP - General 12/06/23 documented as of this encounter
[2025-07-27 21:54] VITALS: BP 161/78; PULSE 97; RESP 20; TEMP 37.1; O2SAT 100
--- NOTE | 2025-07-28 01:53 | ED.UPPEXIN ---
HPI - Extremity Injury (Upper) General Chief Complaint: Extremity Injury, Upper Stated Complaint: hand injury Time Seen by Provider: 07/28/25 01:15 History of Present Illness HPI narrative: Patient is a 20-year-old male who presents to ER after striking his left hand with a hammer at work 3 days ago. He reports he was changing a tire when he accidentally missed the area he was attempting to strike. Patient denies any decreased range of motion, excessive swelling, or excessive bruising. He endorses a history of high blood pressure. Related Data Home Medications ?Medication ?Instructions ?Recorded ?Confirmed ?Last Taken ?Type acetone (urine) test (Ketostix 12/12/23 06/17/25 Unknown History strips) glucagon 3 mg/actuation nasal 3 mg intranasal ONCE 12/12/23 06/17/25 Unknown History spray (Baqsimi) pen needle, diabetic 32 gauge x #1,200 ea 05/27/24 06/17/25 Unknown History (TRUEplus Pen Needle) Allergies Allergy/AdvReac Type Severity Reaction Status Date / Time No Known Allergies Allergy Verified 07/27/25 21:56 Review of Systems Review of Systems: All systems reviewed & are unremarkable except as noted in HPI and below PMFSH Past Medical History Medical History Vitamin D deficiency Hypertension Tobacco abuse Diabetes type I Surgical History Surgical History No history of previous surgery Family History Family History Grandparent Renal cell carcinoma Diabetes mellitus Hypertension Heart disease Thyroid disorder Father Suicide Social History Social History Social History: He is single. He does not have any children. He lives with his god parents and their children. He has bait since he was 15 years old and transition to smoking 0.5 packs of cigarettes per day over the last year so. He drinks 4 beers a couple of times a week. He denies illicit substance use. Code status: Full code Smoking packs per day: 0.5 Smoking cigarettes per day: 10.0 Years smoked: 3 Smoking pack-years: 1.50 Smoking status: Current every day smoker Tobacco type: cigarettes Alcohol intake: current Drinks per week: 5 Alcohol use details: 5 beers a month Substance use: never Substance use type: does not use Do You Feel Safe in your Home?: Yes Lack of Transportation: No Lack of Food: Never True Current Housing: I Have Housing Concerned About Future Housing: No Difficulty Paying Gas/Electric Bills: No Difficulty Paying for Meds: No Currently Unemployed: No Education: Trade/Vocational Certificate Difficulty w/ Childcare or Family Care: No Spiritual care concerns: No Exam Narrative: GENERAL: Well appearing, well-nourished, non-toxic, in no acute distress. HEAD: Normocephalic, atraumatic. NECK: Supple. No adenopathy, no masses. RESPIRATORY: Airway patent, respirations nonlabored. Clear to auscultation bilaterally, no rales, rhonchi, wheezing. CARDIOVASCULAR: Regular rate and rhythm without murmurs, rubs, or gallops. Peripheral pulses 2+ and equal bilaterally. ABDOMINAL: Soft, nontender, nondistended, no hepatosplenomegaly. Normoactive BS. MUSCULOSKELETAL: Moves all extremities. Strength/ROM intact without gross deformities. Negative snuffbox tenderness SKIN: Warm, dry, normal color. No rashes. Mild ecchymosis to dorsal side of left hand. No visible bruising to left wrist. NEURO: A&O X3. Speech clear. Cranial nerves II-XII intact. No ataxic movements. PSYCHIATRIC: Appropriate mood and affect. Normal interaction. Course Vital Signs Vital signs: Vital Signs Temperature 37.1 C 07/27/25 21:54 Pulse Rate 97 07/27/25 21:54 Respiratory Rate 20 07/27/25 21:54 Blood Pressure 161/78 H 07/27/25 21:54 Pulse Oximetry 100 07/27/25 21:54 Oxygen Delivery Room Air 07/27/25 21:54 Temperature 37.1 C 07/27/25 21:54 Pulse Rate 97 07/27/25 21:54 Respiratory Rate 20 07/27/25 21:54 Blood Pressure 161/78 H 07/27/25 21:54 Pulse Oximetry 100 07/27/25 21:54 Oxygen Delivery Room Air 07/27/25 21:54 MDM - Extremity Injury (Upper) MDM Narrative Medical decision making narrative: Patient is a 20-year-old male who presents to ER after striking his left hand with a hammer at work 3 days ago. He reports he was changing a tire when he accidentally missed the area he was attempting to strike. Patient denies any decreased range of motion, excessive swelling, or excessive bruising. He endorses a history of high blood pressure. Imaging Ordered: Left wrist x-ray, left hand x-ray Medications Ordered: Toradol 60 mg IM Results: Patient's x-rays indicate No acute fracture or dislocation. Diagnosis: Left hand hematoma Patient Education/Shared MDM: Results of imaging shared with patient. He will be placed in an [place] wrap and advised to use Tylenol/ibuprofen as needed for pain control. Patient strongly advised to follow-up PCP if symptoms do not improve. He will not be discharged home with any new prescriptions. Strict return precautions provided. Patient verbalized understanding and is in agreement with plan. Vital signs stable at time of discharge. All questions answered. Differential Diagnosis Differential diagnosis: Likely sprain and strain of wrist, fracture of wrist and fracture of hand Imaging Data Attestation: I personally reviewed and interpreted this imaging study as follows: Radiologist's impression: Impressions Wrist X-Ray 07/27/25 22:14 IMPRESSION: No acute fracture or dislocation. Hand X-Ray 07/27/25 22:38 IMPRESSION: No acute fracture or dislocation. Discharge Plan Discharge Clinical Impression: Hematoma of left hand, Hand pain, left, Left wrist pain Patient Disposition: Home Condition: Stable Instructions: Antibiotic Form, Bone Bruise (ED) Additional Instructions: Please return to the ER with any worsening symptoms. Follow-up with primary care provider if symptoms do not improve. Take all medications as prescribed, including regularly scheduled medications. Please use Tylenol and/or ibuprofen for pain control. Remember to rest your wrist and ice as needed. Patient Language: Uzbek Prescriptions: No Action (DME) Ketostix Strip See Rx Instructions .Route Rx Instructions: As directed Baqsimi 3 mg/actuation spray,non-aerosol 3 mg intranasal ONCE Rx Instructions: as a single dose insulin lispro 100 unit/mL solution 60 unit continuous subcutaneous infusion DAILY 90 Days Qty: 60 1RF (DME) Dexcom G7 Sensor Device See Rx Instructions .ROUTE .MEDSUPPLY Qty: 9 2RF Rx Instructions: As directed fosinopril 40 mg tablet 40 mg PO DAILY Qty: 90 3RF insulin glargine [Basaglar KwikPen U-100 Insulin] 100 unit/mL (3 mL) insulin pen 33 unit subcut DAILY PRN (Reason: pump faillure) Qty: 15 0RF (DME) pen needle, diabetic [TRUEplus Pen Needle] 32 gauge x 5/32 needle See Rx Instructions .ROUTE .MEDSUPPLY Qty: 1200 Rx Instructions: As directed Follow-up/Referrals: Ely Benites NP [Primary Care Provider, Family Practice] Stand Alone Forms: Work/School Release IP Time of Disposition: 01:59
[2025-07-28] MEDS: KETOROLAC (*BKC) 60 MG/2 ML VIAL IM (02:12)
[2025-07-28 02:17] VITALS: BP 124/78; PULSE 80; RESP 14; O2SAT 99
== END 2025-07-28 02:18 | disposition home or self-care (01) ==
PROVIDERS: Emergency Provider Registered Nurse; PCP Nurse Practitioner Family
DX: S60.222A Contusion of left hand, initial encounter (principal); S69.92XA Unspecified injury of left wrist, hand and finger(s), initial encounter; I10 Essential (primary) hypertension; E10.9 Type 1 diabetes mellitus without complications; E55.9 Vitamin D deficiency, unspecified; F17.210 Nicotine dependence, cigarettes, uncomplicated; Z79.4 Long term (current) use of insulin; Z79.899 Other long term (current) drug therapy; W27.0XXA Contact with workbench tool, initial encounter
CPT/HCPCS: 73110; 73130; 96372; 99283; J1885